=== PATIENT | female | born 1960 | race Caucasian/White ===

== ENCOUNTER → 2016-05-19 | Outpatient (CLI) | payer OTHER ==
--- NOTE | 2016-05-19 22:11 | MR ---
EXAMINATION TYPE: MR lumbar spine wo con DATE OF EXAM: 05/19/2016 10:03 PM COMPARISON: NONE HISTORY: pain with spasms and numbness since 1998 has gotten worse TECHNIQUE: Multiplanar, multisequence images of the lumbar spine were acquired. L1-L2: Normal disc appearance without desiccation. No herniation, protrusion or disc bulging. No ca nal stenosis is present. Foramina are patent bilaterally. L2-L3: Moderate degenerative disc disease and circumferential disc bulging with mild bilateral forami nal encroachment but no canal stenosis. Mild hypertrophic change of the facets. L3-L4: Moderate degenerative disc disease and circumferential disc bulging with mild bilateral forami nal encroachment but no canal stenosis. Mild hypertrophic change of the facets L4-L5: Broad-based central disc bulging. There is hypertrophy of the ligamentum flavum and moderate c hanges involving the facets. No Canal stenosis. Mild bilateral foraminal encroachment. L5-S1: Normal disc appearance without desiccation. No herniation, protrusion or disc bulging. No ca nal stenosis is present. Foramina are patent bilaterally. Facet arthropathy noted. Lumbar segments are intact. No paraspinal masses are identified. Conus medullaris has a normal appe arance. IMPRESSION: 1. Moderate degenerative disc disease L2-3, L3-4, and L4-5 with disc bulging as discussed above. No Canal stenosis. Mild bilateral foraminal encroachment at these levels.
== END | disposition home or self-care (01) ==
LOC: RADMRIMAIN 21:21
PROVIDERS: ATTEND Family Medicine
DX: M51.16 Intervertebral disc disorders with radiculopathy, lumbar region (principal)
CPT/HCPCS: 72148

== ENCOUNTER 2016-10-23 09:02 | Day surgery (SDC) | payer OTHER ==
[2016-10-21 16:52] VITALS: BMI 34.9
[~2016-10-23 09:02] MED LIST: LACTATED RINGERS 1,000 ML IV SCH; LIDOCAINE 1% 20 ML VIAL (10MG/ML) FOR IV START INTRADERMA PRN
[2016-10-23 09:16] VITALS: RESP 16; TEMP 96.8
[2016-10-23] MEDS ORDERED: ONDANSETRON 4 MG/2 ML VIAL IVP ONE (09:22)
[2016-10-23] MEDS ORDERED: PROPOFOL 10 MG/ML 20 ML VIAL IV ONE (09:31)
--- NOTE | 2016-10-23 09:34 | P.GSHP ---
History of Present Illness H&P Date: 10/23/16 Chief Complaint: GI bleed This a 56-year-old female referred from Dr. madrigal. Patient had complaints of GI bleed. She will undergo EGD and colonoscopy today. Past Medical History Past Medical History: Chest Pain / Angina, Deep Vein Thrombosis (DVT), Fibromyalgia, Hyperlipidemia, Hypertension, Pneumonia, Pulmonary Embolus (PE), Skin Disorder Additional Past Medical History / Comment(s): stated "had black stools for approx 4 days and had pos occult stool end of September or beginning of October 2016,now back to normal",urinary incontinence,steroid injection September 2016,sore rt great toe and between 1rst and 2nd toes left foot History of Any Multi-Drug Resistant Organisms: None Reported Past Surgical History: Cholecystectomy, Hysterectomy, Tubal Ligation Additional Past Surgical History / Comment(s): breast reduction, tendon repair lt hand,rt shoulder repair,madison carpel tunnel Past Anesthesia/Blood Transfusion Reactions: Motion Sickness, Postoperative Nausea & Vomiting (PONV) Additional Past Anesthesia/Blood Transfusion Reaction / Comment(s): no problems with prior blood transfusion Smoking Status: Never smoker - Past Family History Brother(s) Family Medical History: Cancer, Congestive Heart Failure (CHF) Additional Family Medical History / Comment(s): lymphoma,lung CA Medications and Allergies Home Medications Medication Instructions Recorded Confirmed Type Aspirin EC [Ecotrin Low Dose] 81 mg PO DAILY 09/24/13 10/23/16 History Atorvastatin Calcium [Lipitor] 40 mg PO DAILY 09/24/13 10/23/16 History Dicyclomine [Bentyl] 20 mg PO DAILY 09/24/13 10/23/16 History Gabapentin [Neurontin] 600 mg PO QID PRN 09/24/13 10/23/16 History Levothyroxine Sodium [Synthroid] 125 mcg PO QAM 09/24/13 10/23/16 History Loratadine 10 mg PO DAILY 09/24/13 10/23/16 History Nitroglycerin Sl Tabs [Nitrostat] 0.4 mg PO TID PRN 09/24/13 10/23/16 History Solifenacin Succinate [Vesicare] 10 mg PO DAILY 09/24/13 10/23/16 History Warfarin [Coumadin] 10 mg PO SUMOWEFRSA 09/24/13 10/23/16 History Warfarin [Coumadin] 12.5 mg PO TUTH 09/24/13 10/23/16 History buPROPion SR [Wellbutrin SR] 150 mg PO BID 09/24/13 10/23/16 History Baclofen [Lioresal] 20 mg PO QID PRN 09/01/14 10/23/16 History Hydrocodone/Acetaminophen [[place] 1 each PO TID PRN 09/01/14 10/23/16 History 10-325] Cetirizine HCl [Zyrtec] 10 mg PO DAILY PRN 10/21/16 10/23/16 History Metoprolol Succinate (ER) [Toprol 25 mg PO QAM 10/21/16 10/23/16 History Xl] Naproxen Sodium [Aleve] 440 mg PO BID PRN 10/21/16 10/23/16 History Allergies Allergy/AdvReac Type Severity Reaction Status Date / Time Iodinated Contrast Media - Allergy Rash/Hives, Verified 10/23/16 09:23 Oral and swelling,it tiffanie iodine Allergy Rash/Hives, Verified 10/23/16 09:23 swelling,it tiffanie latex Allergy Swelling,it Verified 10/23/16 09:23 tiffanie,hives Surgical - Exam Vital Signs Temp Pulse Resp BP Pulse Ox 96.8 F L 72 16 110/74 98 10/23/16 09:15 10/23/16 09:15 10/23/16 09:15 10/23/16 09:15 10/23/16 09:15 - General well developed, no distress - Eyes PERRL - ENT normal pinna - Neck no masses - Respiratory normal expansion - Cardiovascular Rhythm: regular - Abdomen Abdomen: soft, non tender Assessment and Plan Plan: GI bleed. We'll perform EGD and colonoscopy.
--- NOTE | 2016-10-23 09:55 | P.OP ---
Date of Procedure: 10/23/16 Preoperative Diagnosis: GI bleed Postoperative Diagnosis: Antral gastritis Duodenitis Normal colon Procedure(s) Performed: EGD Colonoscopy Implants: Anesthesia: MAC Surgeon: Pablo Rivera Pathology: other (Antrum,duodenum) Condition: stable Disposition: PACU Indications for Procedure: Operative Findings: Description of Procedure: PROCEDURE: The patient was placed on the endoscopy table in the lateral position. Digital rectal examination was performed which revealed no abnormalities. . Flexible colonoscope was then placed in the patient's anus and passed throughout the entire colon. The ileocecal valve was visualized. The cecum, ascending, transverse, descending and sigmoid colon were normal. The rectum was normal as well. There were no masses, polyps or diverticula noted in the entire colon. Next, the gastroscope placed oropharynx passed in the esophagus and stomach. Scope was placed through the pylorus. The first and second portion of duodenum appeared inflamed. A biopsies performed. The scope was then brought back and the antrum this appeared inflamed a biopsies was performed. The scope was unretroflexed and remainder of the stomach appeared normal. The GE junction was at 47 is. The distal esophagus appeared normal. The proximal esophagus appeared normal. Scope was withdrawn for patient.
[2016-10-23 10:18] VITALS: BP 112/58; PULSE 65
== END 2016-10-23 10:38 | disposition home or self-care (01) ==
LOC: ORWHC2ENDO 09:02
PROVIDERS: ATTEND Surgery
DX: K29.50 Unspecified chronic gastritis without bleeding (principal); K29.80 Duodenitis without bleeding; I25.119 Atherosclerotic heart disease of native coronary artery with unspecified angina pectoris; I10 Essential (primary) hypertension; E78.5 Hyperlipidemia, unspecified; M79.7 Fibromyalgia; Z86.718 Personal history of other venous thrombosis and embolism; Z79.01 Long term (current) use of anticoagulants; E07.9 Disorder of thyroid, unspecified; F32.9 Major depressive disorder, single episode, unspecified; Z79.82 Long term (current) use of aspirin; Z79.899 Other long term (current) drug therapy; Z91.041 Radiographic dye allergy status; Z91.040 Latex allergy status
CPT/HCPCS: 88305; 88342; 45378; 43239; J2405; J2704

== ENCOUNTER → 2016-10-29 | Outpatient (CLI) | payer OTHER ==
--- NOTE | 2016-10-30 09:14 | MM ---
Reason for exam: clinical finding. Last mammogram was performed 2 years and 1 month ago. History: Patient is postmenopausal. Family history of breast cancer in maternal aunt and breast cancer in maternal cousin at age 48. 2000. Took hormonal contraceptives for 15 years beginning at age 17. Physical Findings: Nurse did not find any significant physical abnormalities on exam. MG Diagnostic Mammo w CAD LISE Bilateral CC and MLO view(s) were taken. LM, spot compression CC, and spot compression MLO view(s) were taken of the right breast. Prior study comparison: September 21, 2014, bilateral MG screening mammo w CAD. July 20, 2012, bilateral digital screening mammo w/CAD. The breast tissue is almost entirely fat. Finding: There is a 7 mm irregular mass located 7 cm from the nipple in the 12 o'clock position of the right breast. More defined since September 21, 2014 and July 20, 2012. These results were verbally communicated with the patient and result sheet given to the patient on 10/29/16. ASSESSMENT: Probably benign, BI-RAD 3 RECOMMENDATION: Follow-up diagnostic mammogram of the right breast in 6 months.
--- NOTE | 2016-10-30 09:19 | USB ---
Reason for exam: clinical finding. History: Patient is postmenopausal. Family history of breast cancer in maternal aunt and breast cancer in maternal cousin at age 48. Reductions, 2000. Took hormonal contraceptives for 15 years beginning at age 17. US Breast BILAT Right breast ultrasound includes all four quadrants, the retroareolar region and axilla. Finding demonstrates no cystic or solid lesion seen. Left breast ultrasound includes all four quadrants, the retroareolar region and axilla. Finding demonstrates no cystic or solid lesion seen. These results were verbally communicated with the patient and result sheet given to the patient on 10/29/16. ASSESSMENT: Negative, BI-RAD 1 RECOMMENDATION: Follow-up diagnostic mammogram of the right breast in 6 months.
== END | disposition home or self-care (01) ==
LOC: RADMAMWWP 13:09
PROVIDERS: ATTEND Family Medicine
DX: N63 Unspecified lump in breast (principal)
CPT/HCPCS: 76641; G0204

== ENCOUNTER → 2017-01-22 | Outpatient (CLI) | payer OTHER ==
--- NOTE | 2017-01-25 12:04 | MR ---
EXAMINATION TYPE: MR shoulder RT wo con DATE OF EXAM: 01/22/2017 COMPARISON: NONE HISTORY: Rt shoulder impingement x 1 year, no trauma TECHNIQUE: Multiplanar, multisequence imaging of the right shoulder is performed without contrast. FINDINGS: Rotator Cuff: There is a partial through thickness tear of the infraspinatus tendon and conjoined por tion of the rotator cuff tendon near the insertion measuring a thickness of 2 cm. No retraction. Incr eased signal within the subscapularis tendon near the insertion suggesting tendinosis. Acromioclavicular Joint: There is hypertrophic change of the AC joint which results in impingement of the supraspinatus tendon. Glenohumeral Joint: There is a small joint effusion. There is narrowing of the joint space and a tiny spur along the inferior margin of the humeral head. Inferior glenohumeral ligament remains intact. Labrum: Abnormal signal seen within the anterior superior labrum extending posteriorly compatible wit h SLAP tear Biceps Tendon: There is increased signal surrounding the biceps tendon within the groove. There is no dislocation of the tendon. Within the intracapsular portion of the tendon there appears to be increa sed intrasubstance signal. Findings are compatible tendinopathy and partial intrasubstance tear. Bone marrow signal: No focal abnormal marrow signal is appreciated. IMPRESSION: 1. Partial through thickness tear infraspinatus tendon and conjoined portion of the rotator cuff tend on near the insertion measuring a thickness of 2 cm with no significant retraction. 2. Tendinosis subscapularis tendon. 3. bicipital tendinosis with partial intrasubstance tear involving the intracapsular portion of the t endon. 4. SLAP tear. 5. Arthropathy AC joint results in impingement.
== END | disposition home or self-care (01) ==
LOC: RADMRIMAIN 20:04
PROVIDERS: ATTEND Family Medicine
DX: M75.111 Incomplete rotator cuff tear or rupture of right shoulder, not specified as traumatic (principal); M75.81 Other shoulder lesions, right shoulder; S43.401A Unspecified sprain of right shoulder joint, initial encounter; M75.41 Impingement syndrome of right shoulder; M12.811 Other specific arthropathies, not elsewhere classified, right shoulder; M54.10 Radiculopathy, site unspecified

== ENCOUNTER 2017-05-10 01:01 | Emergency (ER) | payer OTHER ==
[2017-05-10 01:12] VITALS: TEMP 97
[2017-05-10] MEDS ORDERED: methylPREDNISolone SOD SUCCI 125 MG/2 ML VIAL IM STA (01:59)
[2017-05-10] MEDS ORDERED: ORPHENADRINE 30 MG/ML 2 ML VIAL IM STA (01:59)
[2017-05-10] MEDS ORDERED: KETOROLAC 60 MG/2 ML VIAL IM STA (01:59)
--- NOTE | 2017-05-10 02:08 | ED ---
General Adult HPI - General Chief complaint: Extremity Injury, Lower Stated complaint: Leg injury Time Seen by Provider: 05/10/17 01:45 Source: patient, family, RN notes reviewed Mode of arrival: ambulatory Limitations: physical limitation - History of Present Illness Initial comments: 57-year-old female presents to the emergency department with chief complaint of flareup of her left leg sciatica. She states she chronically has sciatica. She states she takes pain medication she takes anti-inflammatories and other medications for this. She states that she took a step today and all of a sudden she was shooting pain from the bottom of her left foot all day at the back of her leg into her low back. Patient states there was no actual fall trauma or injury. She states just his flared up her sciatica is causing her increased pain which makes it hard to ambulate. She denies any loss of bowel or bladder function any saddle anesthesia with this. She states that it wishes to the level pain that she thought that she should be seen for that she gave help with her discomfort. She states she has not been on steroids for her back for very long time. Patient denies any recent fever, chills, shortness of breath , chest pain, abdominal pain, nausea vomiting, numbness or tingling, dysuria or hematuria, constipation or diarrhea, headaches or visual changes, or any other current symptoms. - Related Data Home Medications Medication Instructions Recorded Confirmed Aspirin EC [Ecotrin Low Dose] 81 mg PO DAILY 09/24/13 10/23/16 Atorvastatin Calcium [Lipitor] 40 mg PO DAILY 09/24/13 10/23/16 Dicyclomine [Bentyl] 20 mg PO DAILY 09/24/13 10/23/16 Gabapentin [Neurontin] 600 mg PO QID PRN 09/24/13 10/23/16 Levothyroxine Sodium [Synthroid] 125 mcg PO QAM 09/24/13 10/23/16 Loratadine 10 mg PO DAILY 09/24/13 10/23/16 Nitroglycerin Sl Tabs [Nitrostat] 0.4 mg PO TID PRN 09/24/13 10/23/16 Solifenacin Succinate [Vesicare] 10 mg PO DAILY 09/24/13 10/23/16 Warfarin [Coumadin] 10 mg PO SUMOWEFRSA 09/24/13 10/23/16 Warfarin [Coumadin] 12.5 mg PO TUTH 09/24/13 10/23/16 buPROPion SR [Wellbutrin SR] 150 mg PO BID 09/24/13 10/23/16 Baclofen [Lioresal] 20 mg PO QID PRN 09/01/14 10/23/16 Hydrocodone/Acetaminophen [[place] 1 each PO TID PRN 09/01/14 10/23/16 10-325] Cetirizine HCl [Zyrtec] 10 mg PO DAILY PRN 10/21/16 10/23/16 Metoprolol Succinate (ER) [Toprol 25 mg PO QAM 10/21/16 10/23/16 Xl] Naproxen Sodium [Aleve] 440 mg PO BID PRN 10/21/16 10/23/16 Previous Rx's Medication Instructions Recorded Omeprazole 40 mg PO DAILY #60 capsule. 10/23/16 predniSONE 50 mg PO DAILY #5 tab 05/10/17 Allergies Allergy/AdvReac Type Severity Reaction Status Date / Time Iodinated Contrast- Oral and Allergy Rash/Hives, Verified 05/10/17 01:13 IV Dye swelling,it [Iodinated Contrast Media - tiffanie Oral and] iodine Allergy Rash/Hives, Verified 05/10/17 01:13 swelling,it tiffanie latex Allergy Swelling,it Verified 05/10/17 01:13 tiffanie,hives Review of Systems ROS Statement: Those systems with pertinent positive or pertinent negative responses have been documented in the HPI. ROS Other: All systems not noted in ROS Statement are negative. Past Medical History Past Medical History: Chest Pain / Angina, Deep Vein Thrombosis (DVT), Fibromyalgia, Hypertension, Pulmonary Embolus (PE) Additional Past Medical History / Comment(s): stated "had black stools for approx 4 days and had pos occult stool end of September or beginning of October 2016,now back to normal",urinary incontinence,steroid injection September 2016,sore rt great toe and between 1rst and 2nd toes left foot History of Any Multi-Drug Resistant Organisms: None Reported Past Surgical History: Cholecystectomy, Hysterectomy Additional Past Surgical History / Comment(s): breast reduction, cholecyst hyst tendon rx, Past Anesthesia/Blood Transfusion Reactions: Motion Sickness, Postoperative Nausea & Vomiting (PONV) Additional Past Anesthesia/Blood Transfusion Reaction / Comment(s): no problems with prior blood transfusion Past Psychological History: No Psychological Hx Reported Smoking Status: Never smoker Past Alcohol Use History: Occasional Past Drug Use History: None Reported - Past Family History Brother(s) Family Medical History: Cancer, Congestive Heart Failure (CHF) Additional Family Medical History / Comment(s): lymphoma,lung CA General Exam - General Exam Comments Initial Comments: General: The patient is awake and alert, in no distress, and does not appear acutely ill. Eye: Pupils are equal, round. Ears, nose, mouth and throat: There are moist mucous membranes. Neck: The neck is supple, there is no tenderness. Cardiovascular: There is a regular rate and rhythm. No murmur, rub or gallop is appreciated. Respiratory: Lungs are clear to auscultation, respirations are non-labored, breath sounds are equal. No wheezes, stridor, rales, or rhonchi. Back: There is no tenderness to palpation in the midline. There is no obvious deformity. No rashes noted. Complains of left posterior paraspinal region. Positive straight leg raise on the left Musculoskeletal: Normal ROM, no tenderness, There is no pedal edema. There is no calf tenderness or swelling. Sensation intact. Pulses equal bilaterally 2+. Neurological: CN II-XII intact, There are no obvious motor or sensory deficits. Coordination appears grossly intact. Speech is normal. Skin: Skin is warm and dry and no rashes or lesions are noted. Psychiatric: Cooperative, appropriate mood & affect, normal judgment. Limitations: physical limitation Course Vital Signs 05/10/17 01:01 Temperature 97.0 F L Pulse Rate 86 Respiratory 18 Rate Blood Pressure 119/67 O2 Sat by Pulse 97 Oximetry - Reevaluation(s) Reevaluation #1: 05/10/17 03:38 Patient has had some improvement of symptoms at this time. Medical Decision Making - Medical Decision Making 57-year-old female presents to the emergency department with a chief complaint of flareup of left leg sciatica. she received injection medications. We discussed that we will start her on steroids for home. We discussed continuing her home pain medication. We did discuss close follow-up with her doctor we did discuss return parameters all questions. The patient Disposition Clinical Impression: Sciatica, left side Disposition: HOME SELF-CARE Condition: Stable Instructions: Sciatica (ED) Additional Instructions: Please use medication as discussed. Please follow up with family doctor if symptoms have not improved over the next two days. Please return to the emergency room if your symptoms increase or worsen or for any other concerns. Prescriptions: predniSONE 50 mg PO DAILY #5 tab Referrals: Floresita Gonzalez DO [Primary Care Provider] - 1-2 days
[2017-05-10] MEDS ORDERED: HYDROmorphone 1 MG/ML 1 ML SYRINGE IM STA (03:04)
[2017-05-10 03:47] VITALS: BP 118/62; PULSE 67; RESP 17
== END 2017-05-10 03:49 | disposition home or self-care (01) ==
LOC: EC 01:01
DX: M54.32 Sciatica, left side (principal); M79.7 Fibromyalgia; I10 Essential (primary) hypertension; Z86.718 Personal history of other venous thrombosis and embolism; Z86.711 Personal history of pulmonary embolism; Z79.01 Long term (current) use of anticoagulants; Z79.82 Long term (current) use of aspirin; Z79.899 Other long term (current) drug therapy; Z91.041 Radiographic dye allergy status; Z91.048 Other nonmedicinal substance allergy status
CPT/HCPCS: 99283; 96372 ×4; J2360; J2930; J1885; J1170

== ENCOUNTER → 2017-06-15 | Outpatient (CLI) | payer OTHER ==
[2017-06-10 14:29] VITALS: BMI 28.7
[2017-06-15 13:25] VITALS: BP 114/81; PULSE 79; RESP 20
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
== END | disposition home or self-care (01) ==
LOC: PNWHC3 12:45
PROVIDERS: ATTEND Anesthesiology
DX: G89.29 Other chronic pain (principal); M51.16 Intervertebral disc disorders with radiculopathy, lumbar region; M53.88 Other specified dorsopathies, sacral and sacrococcygeal region; E07.9 Disorder of thyroid, unspecified; M79.7 Fibromyalgia; K21.9 Gastro-esophageal reflux disease without esophagitis; E78.5 Hyperlipidemia, unspecified; M19.90 Unspecified osteoarthritis, unspecified site; Z79.52 Long term (current) use of systemic steroids; Z86.79 Personal history of other diseases of the circulatory system; Z86.718 Personal history of other venous thrombosis and embolism; Z86.711 Personal history of pulmonary embolism; Z98.890 Other specified postprocedural states; Z90.49 Acquired absence of other specified parts of digestive tract; Z79.01 Long term (current) use of anticoagulants; Z79.82 Long term (current) use of aspirin; Z79.891 Long term (current) use of opiate analgesic; Z79.899 Other long term (current) drug therapy; Z91.041 Radiographic dye allergy status; Z91.040 Latex allergy status
CPT/HCPCS: 99211

== ENCOUNTER → 2017-06-21 | Outpatient (CLI) | payer OTHER ==
--- NOTE | 2017-06-22 07:41 | MM ---
Reason for exam: follow-up at short interval from prior study. Last mammogram was performed 8 months ago. History: Patient is postmenopausal. Family history of breast cancer in maternal aunt and breast cancer in maternal cousin at age 48. 2000. Took hormonal contraceptives for 15 years beginning at age 17. Physical Findings: Nurse did not find any significant physical abnormalities on exam. MG Diagnostic Mammo w CAD LISE Bilateral CC and MLO view(s) were taken. Prior study comparison: October 29, 2016, bilateral MG diagnostic mammo w CAD LISE. September 21, 2014, bilateral MG screening mammo w CAD. July 20, 2012, bilateral digital screening mammo w/CAD. Slight nodularity 9 o'clock right breast middle depth maybe more defined from 2014. 6 month follow up recommended. These results were verbally communicated with the patient and result sheet given to the patient on 06/21/17. ASSESSMENT: Probably benign, BI-RAD 3 RECOMMENDATION: Follow-up diagnostic mammogram of the right breast in 6 months.
== END | disposition home or self-care (01) ==
LOC: RADMAMWWP 14:18
PROVIDERS: ATTEND Family Medicine
DX: R92.8 Other abnormal and inconclusive findings on diagnostic imaging of breast (principal)
CPT/HCPCS: 77066

== ENCOUNTER 2017-07-29 06:09 | Day surgery (SDC) | payer OTHER ==
[2017-07-12 16:14] VITALS: BMI 28.7
[2017-07-29] MEDS ORDERED: LACTATED RINGERS 1,000 ML IV SCH (06:23)
[2017-07-29 06:26] VITALS: RESP 16; TEMP 98
--- NOTE | 2017-07-29 07:29 | P.PCN ---
Date of Procedure: 07/29/17 Procedure(s) Performed: Preoperative diagnoses= 1-right sacroiliitis. 2-lumbar radiculopathy. 3- lumbar degenerative disc disease Postoperative diagnoses= same as preoperative diagnosis. Procedure= Right sacroiliac joint steroid injection under fluoroscopic guidance. Anesthesia= local infiltration with lidocaine 1% 2 ml only ,no IV sedation Estimated blood loss=minimal. Procedure indication= the patient had a history of severe chronic low back pain , diagnosed with sacroiliitis, unresponsive to conservative treatment. Procedure description= the patient was seen and identified in the preoperative holding area, risks and benefits and alternative of the procedure and possible complications discussed with the patient, and he agreed with the preceding, patient signed the consent,, and vital signs were monitored and were stable throughout the procedure, patient was placed in the prone position or table and the lumbosacral area was prepped and draped with a sterile fashion, vital signs were closely monitored during the procedure, the fluoroscopy camera was placed in the contralateral oblique view on the right sacroiliac joint and the lower part of the joint was identified, local infiltration of the skin and subcutaneous tissue with lidocaine 1% 2 mL then a 25-gauge Quincke-type spinal needle advanced slowly under fluoroscopy and placed in the posterior and inferior border of the right sacroiliac joint, placement confirmed with AP and lateral view, and after appropriate needle placement confirmed and after negative aspiration for heme and CSF and there was no paresthesia during the injection, 3 ml of Marcaine 0.5% and 40 mg of Kenalog injected after negative aspiration, the needle removed, Patient tolerated the procedure well without any complication, The patient returned to supine position after the back was cleaned and a Band- Aid applied, the patient transported to recovery room in stable condition and he was monitored for 30 minutes before he was discharged home and then patient was reexamined before going home and patient was discharged in stable condition and patient will follow up with the pain clinic in a few weeks
[2017-07-29 07:48] VITALS: BP 113/73; PULSE 65
--- NOTE | 2017-07-29 08:16 | FL ---
EXAMINATION TYPE: FL guided pain mgmt statistic DATE OF EXAM: 07/29/2017 COMPARISON: NONE HISTORY: Sacroiliac joint injection TECHNIQUE: Fluoroscopy. FINDINGS/IMPRESSION: Fluoroscopic guidance was provided during procedure performed by Dr. Escalante. A total of 3 seconds of fluoroscopic time was utilized during the procedure and 1 spot images was ac quired demonstrating localization of the sacroiliac joint.
== END 2017-07-29 07:57 | disposition home or self-care (01) ==
LOC: ORPAIN 06:09
PROVIDERS: ATTEND Specialist
DX: G89.29 Other chronic pain (principal); M46.1 Sacroiliitis, not elsewhere classified; M51.16 Intervertebral disc disorders with radiculopathy, lumbar region; I25.119 Atherosclerotic heart disease of native coronary artery with unspecified angina pectoris; Z86.718 Personal history of other venous thrombosis and embolism; Z86.711 Personal history of pulmonary embolism; Z91.040 Latex allergy status; Z91.048 Other nonmedicinal substance allergy status; Z79.01 Long term (current) use of anticoagulants
CPT/HCPCS: J2250; J1100; J3301; Q9965; G0260; 27096

== ENCOUNTER 2017-08-26 06:16 | Day surgery (SDC) | payer OTHER ==
[2017-08-23 14:48] VITALS: BMI 28.7
[~2017-08-26 06:16] MED LIST changes: -LIDOCAINE 1% 20 ML VIAL (10MG/ML) FOR IV START INTRADERMA PRN
[2017-08-26] MEDS ORDERED: LIDOCAINE 1% 20 ML VIAL (10MG/ML) FOR IV START INTRADERMA ONE (06:20)
[2017-08-26 06:32] VITALS: PULSE 70; RESP 16; TEMP 97.5
--- NOTE | 2017-08-26 07:26 | P.PCN ---
Date of Procedure: 08/26/17 Procedure(s) Performed: Preoperative diagnoses= 1-right sacroiliitis. 2-lumbar degenerative disc disease Postoperative diagnoses= same as preoperative diagnosis. Procedure= Right sacroiliac joint steroid injection under fluoroscopic guidance. Anesthesia= local infiltration with lidocaine 1% 2 ml. ( NO IV SEDATIONS ) Estimated blood loss=minimal. Procedure indication= the patient had a history of severe chronic low back pain , diagnosed with sacroiliitis and lumbar sacral facet arthropathy unresponsive to conservative treatment. Procedure description= the patient was seen and identified in the preoperative holding area, risks and benefits and alternative of the procedure and possible complications discussed with the patient, and he agreed with the preceding, patient signed consent,, and vital signs were monitored and were stable throughout the procedure, patient was placed in the prone position or table and the lumbosacral area was prepped and draped with a sterile fashion, vital signs were closely monitored during the procedure, the fluoroscopy camera was placed in the contralateral oblique view on the right sacroiliac joint and the lower part of the joint was identified, local infiltration of the skin and subcutaneous tissue with lidocaine 1% 2 mL then a 22-gauge Quincke-type spinal needle advanced slowly under fluoroscopy and placed in the posterior and inferior border of the right sacroiliac joint, placement confirmed with AP and lateral view, and after appropriate needle placement confirmed and after negative aspiration for heme and CSF and there was no paresthesia during the injection, 3 ml of Marcaine 0.5% and 40 mg of Kenalog injected after negative aspiration, the needle removed, Patient tolerated the procedure well without any complication, The patient returned to supine position after the back was cleaned and a Band- Aid applied, the patient transported to recovery room in stable condition and he was monitored for 30 minutes before he was discharged home and then patient was reexamined before going home and patient was discharged in stable condition and patient will follow up with the pain clinic in a few weeks
[2017-08-26 07:35] VITALS: BP 113/77
--- NOTE | 2017-08-26 08:34 | FL ---
Fluoroscopy INDICATION: Pain FINDINGS: Fluoroscopy time: 2 seconds. Images obtained: 1. IMPRESSIONS: 1. Documentation of fluoroscopy.
== END 2017-08-26 07:53 | disposition home or self-care (01) ==
LOC: ORPAIN 06:16
PROVIDERS: ATTEND Specialist
DX: G89.29 Other chronic pain (principal); M46.1 Sacroiliitis, not elsewhere classified; I25.10 Atherosclerotic heart disease of native coronary artery without angina pectoris; E78.5 Hyperlipidemia, unspecified; M51.36 Other intervertebral disc degeneration, lumbar region; Z91.041 Radiographic dye allergy status; Z91.040 Latex allergy status; Z86.718 Personal history of other venous thrombosis and embolism; Z86.711 Personal history of pulmonary embolism
CPT/HCPCS: J3301; G0260; 27096

== ENCOUNTER → 2017-09-13 | Outpatient (CLI) | payer OTHER ==
[2017-09-13 13:21] VITALS: BP 115/84; PULSE 96; RESP 15
--- NOTE | 2017-09-13 13:34 | P.PN ---
Progress Note - Text Progress Note Date: 09/13/17 Patient returns for followup for chronic R > L back and hip pain. Patient recently underwent R SIJ injection x 2, which provided > 60% relief for two weeks' interval apiece. Patient continues on tramadol medications for pain with some relief. Patient denies adverse drug effects from medications. Today , pt denies new-onset weakness, bowel/bladder incontinence, or any other signs or symptoms of cauda equina syndrome. There are no signs of acute intoxication, and no indications of medication diversion or overuse. In addition to above, 13-point review of systems is also negative for shortness of breath, changes in vision, changes in hearing, new onset weakness, abdominal pain, diarrhea, extreme fatigue, malaise, fever, skin changes, homicidal or suicidal ideation, or bowel or bladder incontinence. Patient did endorse some chest pain in office today, but it improved substantially after she sat for 5- 10 minutes. Vital Signs: Reviewed in EMR Gen: WDWN, AAOx3, NAD HEENT: NCAT, EOMI, hearing grossly normal Pulm: resp unlabored Abd: soft, NT, ND Neck: supple, trachea midline ROM in flexion lumbar spine: reduced ROM in extension lumbar spine: reduced Lumbar paravertebral tenderness: + Facet loading: + bilateral SI joint tenderness: + bilateral, R > L Sher's test: R >> L Straight leg raise: neg Lower extremity: reduced sensation to pinprick RLE below the knee Imaging: Reviewed in EMR Assessment: 1. lumbar spondylosis 2. SIJ dysfunction 3. chronic pain syndrome Plan: 1. Explanation: Opioid and psychological risk scores were reviewed. Diagnoses , prognoses, and multiple treatment options including but not limited to physical therapy, interventional therapies, adjuvant medical therapies, narcotic medication therapies, and surgery were discussed with the patient and all questions were answered to the patient's satisfaction. 2. Opioid agreement: Patient has previously signed narcotic agreement, and was orally counseled to not overuse, abuse, divert, or cell medications, and to take them as prescribed by only 1 healthcare provider. The patient was also counseled to store opioid medications in a safe and preferably locked location. Patient was also counseled against driving or operating heavy equipment while using narcotic medications and also to not use alcohol or any illicit or recreational drugs. The patient verbalized understanding that lack of compliance with any of the above and likely result in failure to renew narcotic prescriptions, possible discharge from the clinic, and possible legal ramifications thereafter if indicated. 3. Counseling: The patient was counseled extensively on SMOKING CESSATION, BODY MASS INDEX, EXERCISE. Specifically, the patient was instructed regarding the importance of smoking cessation, weight control, and exercise in the context of both chronic pain and overall health. 4. Procedures: R SI RFA 5. Consultations: None 6. Investigations: UDS not done, MAPS queried and appropriate 7. Medications: none prescribed 8. Morphine equivalents per day prescribed: zero 9. Disposition: f/u for procedure as scheduled PQRS measures: 1-Patient's medications are documented in the chart. 2-Tobacco use is positive/negative, counseling NOT given 3-Patient has not had a pneumococcal vaccine. 4-Advanced care planning discussed, patient unable to give. 5-Opioid contract signed with the patient. 6-Pain positive, follow-up visit or procedure scheduled 7-Patient's blood pressure measured and documented, and patient will follow up with the primary care due to hypertension. 8-Patient's weight was measured, and body mass index ABOVE/BELOW the normal limits, and counseling was done. Patient instructed to follow up with PCP. 9-Patient WAS/WAS NOT identified as an unhealthy alcohol user.
== END | disposition home or self-care (01) ==
LOC: PNWHC3 13:00
PROVIDERS: ATTEND Anesthesiology
DX: G89.4 Chronic pain syndrome (principal); M47.816 Spondylosis without myelopathy or radiculopathy, lumbar region; M53.3 Sacrococcygeal disorders, not elsewhere classified; Z79.891 Long term (current) use of opiate analgesic
CPT/HCPCS: 99211

== ENCOUNTER → 2018-02-01 | Outpatient (CLI) | payer OTHER ==
[2018-02-01 13:35] VITALS: BP 129/83; PULSE 75; RESP 18
--- NOTE | 2018-02-02 08:32 | P.PAINPG ---
Subjective Progress Note Date: 02/01/18 This is a follow-up visit for this patient with a history of severe low back pain, patient had right side sacroiliac joint steroid injection in the past, she gets more than 60% improvement in her low back pain, bilateral last few months he started complaining of severe low back pain with radiation to the lower extremity bilaterally, associated with numbness and tingling sensation, she is currently on Neurontin 600 mg every 6 hours and baclofen every 6 hours, prescription given by her primary care, she denies any fever or night sweats she denies any change in the bowel movement or urination she denies any motor or sensory deficit,, the intensity of the pain 6- 8 over 10 and increases with any activity Objective - Vital Signs Vital signs: Vital Signs Temp Pulse 75 02/01/18 13:25 Resp 18 02/01/18 13:25 BP 129/83 02/01/18 13:25 Pulse Ox 95 02/01/18 13:25 Intake & Output 02/01/18 02/02/18 02/02/18 18:59 06:59 18:59 Weight 71.668 kg - Exam Physical Examinations : 1-Constitutiona : Cooperative , not in acute distress . 2-HEENT : nech ; supple , no Lymphadenopathy , normal thyroid size . eyes : no ptosis , no icterus , no photophobia . ENT : normal of hearing , normal oropharynx , no Thrush . 3- Respiratory : Chest clear to auscultations Bilaterally , no wheezing , no Rhonchi . 4- Cardiovascular : regular rate and rhythem , S1 , S2 , no S3 , no S4. 5- Gastrointestinal : abdomen soft no tenderness , bowel sounds , no organomegally . 6- Genitourinary : Defferred . 7- neurologic : Cranial nerve II to XII intact , no focal neurological deffecit . 8-psychatric : alert , oriented X 3 , appropriate affect , intact judgment and insight . 9-Lymphatic : no Lymphadenopathy . 10- musculoskeltal : Lumber spine moter stegnth lower extremities ,thigh and legs 5/5 Right side , 5/5 Left side deep tendon reflexes : normal Knee Jerk , normal ankle Jerk positive lumber facet Loading Test Range of motion of the lumbar spine Flexion 30 degrees, extension 10 degrees strait leg raising test , positive at 30 degree Fabere test positive RT and positive LT . Sever tenderness over the Sacroiliac joint on the R and L sides Assessment and Plan Plan: Assessment and plan= chronic severe low back pain secondary to bilateral sacroiliitis , and currently also patient having symptoms of lumbar radiculitis. A few months ago with the right-sided sacroiliac joint steroid injection which helped her low back pain significantly , currently patient complaining of some radicular symptoms, at L4 5, L5-S1 this dermatomal distribution, I will order MRI of the lumbar spine to identify the etiology, and also patient could benefit from bilateral sacroiliac joint steroid injection , patient should hold the Coumadin for 5 days before the procedure Time with Patient: Less than 30 PQRS Measure Charge Sheet Measure #130: Documentation of Current Meds in Medical Chart: Patient's medications documented in chart Measure #226: Tobacco Use: Screen & Cessation Intervention: Pt not a tobacco user Measure #111: Pneumonia Vaccination: Pneumococcal vaccine NOT administered or previously given Measure #47: Advance Care Plan: Advance care planning discussed & documented, pt chose/unable to give Measure #412: Opioid Treatment Agreement: No documentation of signed opioid treatment agreement Measure #408: Opioid Therapy Follow-up Evaluation: Patient had NO f/u eval minimum every 3 months during opioid therapy Measure #317: Preventitive Care & Scrn High Bld Press & F/U: Normal blood pressure, f/u not required Measure #128: Body Mass Index (BMI) Screening & Follow-up: BMI documented ABOVE normal parameters - f/u documented Measure #131: Pain Assessment & Follow-up: Pain positive & plan documented, Follow-up scheduled Measure #431: Unhealthy Alcohol Use Preventative Care & Scrn: Patient not identified as an unhealthy alcohol user PQRS Narrative: Smoking Status Never smoker Do You Want the Pneumonia No Vaccine AT THIS TIME? Blood Pressure 129/83 Pain Intensity [Lower Back] 8 Hx Alcohol Use (MH) Yes Home Medications: Ambulatory Orders Aspirin EC [Ecotrin Low Dose] 81 mg PO DAILY 09/24/13 Atorvastatin Calcium [Lipitor] 40 mg PO DAILY 09/24/13 Dicyclomine [Bentyl] 20 mg PO DAILY 09/24/13 Gabapentin [Neurontin] 800 mg PO QID PRN 09/24/13 Levothyroxine Sodium [Synthroid] 125 mcg PO QAM 09/24/13 Loratadine 10 mg PO DAILY 09/24/13 Nitroglycerin Sl Tabs [Nitrostat] 0.4 mg PO DIRECTED PRN 09/24/13 Solifenacin Succinate [Vesicare] 10 mg PO DAILY 09/24/13 Warfarin [Coumadin] 10 mg PO SUMOWEFRSA 09/24/13 Warfarin [Coumadin] 12.5 mg PO TUTH 09/24/13 buPROPion SR [Wellbutrin SR] 150 mg PO BID 09/24/13 Baclofen [Lioresal] 20 mg PO QID PRN 09/01/14 Omeprazole 40 mg PO DAILY #60 capsule. 10/23/16 Calcium/Magnesium/Zinc [Djzgpew-Zvecfewaz-Wnza Tablet] 1 each PO DAILY 07/27/17 Cyanocobalamin (Vitamin B-12) [Vitamin B-12] 1,000 mcg PO DAILY 07/27/17 Ergocalciferol [Vitamin D2] 50,000 unit PO FR 07/27/17 Controlled Substance Measures - Controlled Substance Measures Is patient prescribed a controlled substance at discharge?: No When asked, does pt state using other controlled substances?: No If prescribed controlled substance>3 days was MAPS reviewed?: No If Rx opioid, was Start Talking consent form obtained?: No If opioid is for acute pain is fill amount 7 days or less?: No Was information provided regarding opioid addiction?: No
== END | disposition home or self-care (01) ==
LOC: PNWHC3 12:03
PROVIDERS: ATTEND Specialist
DX: G89.29 Other chronic pain (principal); M54.5 Low back pain; M54.16 Radiculopathy, lumbar region; M46.1 Sacroiliitis, not elsewhere classified; Z79.01 Long term (current) use of anticoagulants; Z79.82 Long term (current) use of aspirin; Z79.899 Other long term (current) drug therapy
CPT/HCPCS: 99211

== ENCOUNTER 2018-02-10 07:44 | Day surgery (SDC) | payer OTHER ==
[2018-02-10 08:14] VITALS: TEMP 97.8
--- NOTE | 2018-02-10 08:59 | P.PCN ---
Date of Procedure: 02/10/18 Surgeon: Viktor Matthews Pathology: none sent Condition: stable Disposition: PACU Description of Procedure: Preoperative diagnoses= bilateral sacroiliac joint dysfunction and sacroiliitis , history of DVT and PE and factor V Leiden disease and treatment with Coumadin Postoperative diagnoses= same as preoperative diagnosis. Procedure= bilateral sacroiliac joint steroid injection under fluoroscopic guidance. Anesthesia= conscious sedation with Versed mg and fentanyl micrograms and local infiltration with lidocaine 1% 4 ml Estimated blood loss=minimal. Procedure indication= the patient had a history of severe chronic low back pain , diagnosed with sacroiliitis and lumbar sacral facet arthropathy unresponsive to conservative treatment. Her INR today was 1.0. The patient will resume her Coumadin today. Procedure description= the patient was seen and identified in the preoperative holding area, risks and benefits and alternative of the procedure and possible complications discussed with the patient, patient signed the consent. an IV was started, and vital signs were monitored and were stable throughout the procedure , patient was placed in the prone position or table and the lumbosacral area was prepped and draped with a sterile fashion, vital signs were closely monitored during the procedure.The sacroiliac joint was identified on the AP view of fluoroscopy then the C-arm was tilted to the right oblique position to superimpose the anterior and posterior joint lines on each other and to have a unified joint line with the target point at the inferior one third of this line. I used 22-gauge 3-1/2 inch Quincke spinal needle for this procedure and after getting into the sacroiliac joint I injected 20 mg of Kenalog +2.5 MLS of Ropivacaine 0.5%. The left sacroiliac joint injection was done in the same manner. Patient tolerated the procedure well without any complication. The total dose of Kenalog given for this procedure was 40 mg. The patient returned to supine position after the back was cleaned and a Band- Aid applied, the patient transported to recovery room in stable condition and he was monitored for 30 minutes before he was discharged home and then patient was reexamined before going home and patient was discharged in stable condition and patient will follow up with the pain clinic in a few weeks
[2018-02-10 09:23] VITALS: RESP 18
[2018-02-10 09:40] VITALS: BP 119/74; PULSE 59
--- NOTE | 2018-02-10 10:26 | FL ---
Fluoroscopy HISTORY: Pain 8 seconds fluoroscopy time supplied to the referring clinician. 1 intraoperative C-arm images docume nt the procedure. See dictated report from anesthesia.
== END 2018-02-10 09:52 | disposition home or self-care (01) ==
LOC: ORPAIN 07:44
PROVIDERS: ATTEND Anesthesiology
DX: M46.1 Sacroiliitis, not elsewhere classified (principal); M47.816 Spondylosis without myelopathy or radiculopathy, lumbar region; D68.51 Activated protein C resistance; G89.29 Other chronic pain; Z86.718 Personal history of other venous thrombosis and embolism; Z86.711 Personal history of pulmonary embolism; Z88.2 Allergy status to sulfonamides; Z91.040 Latex allergy status
CPT/HCPCS: J3301; G0260

== ENCOUNTER → 2018-02-17 | Outpatient (CLI) | payer OTHER ==
--- NOTE | 2018-02-17 10:03 | MR ---
EXAMINATION TYPE: MR lumbar spine wo con DATE OF EXAM: 02/17/2018 COMPARISON: 05/19/2016 HISTORY: Lower Ext Radicular Pain/Hx Deg Disc Disease CONTRAST: 0 mL intravenous Gadavist. TECHNIQUE: Multiplanar, multisequence images of the lumbar spine were acquired. FINDINGS: Cord terminates at the lower end of L2. L5-S1: No significant disc bulge or disc herniation. No spinal canal stenosis. No foraminal stenosi s. . L4-L5: There is some increased signal within the posterior L4-5 disc space compatible with small isadora lar tear. Mild disc bulge has anterior thecal sac flattening. No AP spinal canal stenosis present. Fa cet hypertrophy and ligamentum flavum laxity is present with some left posterior lateral thecal sac c ompression. Neural foramen are patent. There is some mild left foraminal narrowing from disc bulging into the foramen without nerve root contact. L3-L4: No significant disc bulge or disc herniation. No spinal canal stenosis. No foraminal stenosi s. Facet hypertrophy and mild ligamentum flavum laxity is posterior lateral thecal sac compression.. L2-L3: Minimal disc bulge has anterior thecal sac contact. No significant spinal canal stenosis is pr esent. Disc desiccation is present. L1-L2: No significant disc bulge or disc herniation. No spinal canal stenosis. No foraminal stenosi s. . T12-L1: No significant disc bulge or disc herniation. No spinal canal stenosis. No foraminal stenos is. . Comparison: No significant interval changes from the 2017 comparison study. IMPRESSION: 1. Suspected small annular tear L4-L5. No significant disc bulge or spinal canal stenosis present. 2. Mild posterior lateral thecal sac compression from facet hypertrophy and ligamentum flavum laxity L2-3 and L4-5. 3. Mild left foraminal narrowing without nerve root contact from disc bulging at L4-5 on the left cor relate with radicular symptoms.
== END | disposition home or self-care (01) ==
LOC: RADMRIMAIN 06:57
PROVIDERS: ATTEND Family Medicine
DX: M99.73 Connective tissue and disc stenosis of intervertebral foramina of lumbar region (principal); M51.26 Other intervertebral disc displacement, lumbar region; G95.29 Other cord compression; M47.816 Spondylosis without myelopathy or radiculopathy, lumbar region
CPT/HCPCS: 72148

== ENCOUNTER → 2018-03-29 | Day surgery (SDC) | payer OTHER ==
[2018-03-25 11:43] VITALS: BMI 29.6
[~2018-03-29] MED LIST changes: -LACTATED RINGERS 1,000 ML IV SCH; +SODIUM CHLORIDE 0.9% 500 ML 500 ML IV ONE
[2018-03-29 07:20] VITALS: TEMP 97.4
--- NOTE | 2018-03-29 08:05 | P.PCN ---
Date of Procedure: 03/29/18 Surgeon: Tay Rolle Description of Procedure: Preoperative diagnoses: Bilateral sacroilitis Postoperative diagnoses: Same Procedure: Bilateral sacroiliac joint steroid injection under fluoroscopic guidance. Surgeon: Tay Rolle MD Anesthesia: Local anesthetic only EBL: None Procedure indication: The patient had a history of severe chronic low back pain , diagnosed with sacroiliitis and lumbar sacral facet arthropathy unresponsive to conservative treatment. Procedure description: The patient was seen and identified in the preoperative holding area, risks and benefits and alternative of the procedure and possible complications discussed with the patient, and he agreed with the preceding, patient signed the consent, an IV was started, and vital signs were monitored and were stable throughout the procedure, patient was placed in the prone position or table and the lumbosacral area was prepped and draped with a sterile fashion, vital signs were closely monitored during the procedure, the fluoroscopy camera was placed in the contralateral oblique view on the right sacroiliac joint and the lower part of the joint was identified a 2 mL then a 25 -gauge Quincke-type spinal needle advanced slowly under fluoroscopy and placed in the posterior and inferior border of the right sacroiliac joint, placement confirmed with AP and lateral view, and after appropriate needle placement confirmed and after negative aspiration for heme and CSF and there was , 3 ml of Marcaine 0.5% and 20 mg of Kenalog injected after negative aspiration, no paresthesia during the injection, no resistance to injection, and the needle was removed. The entire same procedure was repeated for the left sacroiliac joint Patient tolerated the procedure well without any complication. The patient returned to supine position after the back was cleaned and a Band- Aid applied, the patient transported to recovery room in stable condition and he was monitored for 30 minutes before he was discharged home and then patient was reexamined before going home and patient was discharged in stable condition and patient will follow up with the pain clinic in a few weeks
[2018-03-29 08:21] VITALS: RESP 18
--- NOTE | 2018-03-29 08:32 | FL ---
EXAMINATION TYPE: FL guided pain mgmt statistic DATE OF EXAM: 03/29/2018 CLINICAL HISTORY: Bilateral sacroiliac joint pain. TECHNIQUE: Fluoroscopy. COMPARISON: None. FINDINGS: Fluoroscopic guidance was provided during pain relief procedure performed by Dr. Rolle . A total of 1 seconds of fluoroscopic time was utilized during the procedure and two spot images are acquired. Images acquired shows needle localization at level of bilateral sacroiliac joints. IMPRESSION: As Above.
[2018-03-29 09:00] VITALS: BP 140/78; PULSE 61
== END | disposition home or self-care (01) ==
LOC: ORPAIN 07:01
PROVIDERS: ATTEND Pain Medicine Pain Medicine
DX: G89.29 Other chronic pain (principal); M46.1 Sacroiliitis, not elsewhere classified; M47.817 Spondylosis without myelopathy or radiculopathy, lumbosacral region; I25.10 Atherosclerotic heart disease of native coronary artery without angina pectoris; Z91.040 Latex allergy status; Z91.048 Other nonmedicinal substance allergy status
CPT/HCPCS: J3301; G0260

== ENCOUNTER → 2018-04-13 | Outpatient (CLI) | payer OTHER ==
--- NOTE | 2018-04-13 14:31 | P.PAINPG ---
Subjective Progress Note Date: 04/13/18 Principal diagnosis: bilateral sacroiliitis this a very pleasant 57-year-old woman with a history of bilateral sacroiliac pain. She is undergone previous sacroiliac joint injections recently. These all been very helpful for her. Unfortunately, she has been falling shortly after her injections and this tends to undo any benefit she has from the injections. She is also undergone bilateral radio frequency ablation of her sacroiliac joints and reports this was extremely helpful in lowering her low back pain. She states that most of her problem and falling is coming from her right knee. She's had previous surgery there. She has intractable pain there and believes that this causes her instability. Objective - Vital Signs Vital signs: Intake & Output 04/12/18 04/13/18 04/13/18 18:59 06:59 18:59 Weight 73.482 kg - Exam General: The patient is alert and oriented. Patient is not sedated Patient answers all question appropriately. Cardiac: Heart is regular in rate and rhythm Respiratory: Clear to auscultation. No audible wheezes. Abdomen: Soft nontender nondistended. Musculoskeletal: Strength is normal bilaterally. Sensation is normal bilaterally. Straight leg raise is negative bilaterally. Very tender to palpation over her sacroiliac joints bilaterally. Neurological: Reflexes are preserved and symmetric bilaterally. Assessment and Plan (1) Bilateral sacroiliitis Current Visit: Yes Status: Acute Code(s): M46.1 - SACROILIITIS, NOT ELSEWHERE CLASSIFIED SNOMED Code(s): 14882570 Plan: Plan of Care 1. Medications:patient will continue to manage her pain with conservative medications. 2. Interventions:we will schedule the patient for sacroiliac joint radio frequency ablation. This will be done one side at a time. She will need to discontinue her Coumadin under the guidance of her prescribing physician in order to have this procedure performed. 3. Referrals:I refer the patient back to her primary care physician for discussion regarding a referral to physical therapy for her right knee as well as referred her back to her certified legal secretary specialist to evaluate her for a brace to help with stability in her knee. I also believe the balance training might be helpful for her. 4. Testing:none 5. Follow-up: sacroiliac joint radiofrequency ablation. PQRS Measure Charge Sheet Measure #130: Documentation of Current Meds in Medical Chart: Patient's medications documented in chart Measure #226: Tobacco Use: Screen & Cessation Intervention: Pt not a tobacco user Measure #111: Pneumonia Vaccination: Pneumococcal vaccine NOT administered or previously given Measure #47: Advance Care Plan: Advance care planning discussed & documented, pt chose/unable to give Measure #412: Opioid Treatment Agreement: No documentation of signed opioid treatment agreement Measure #408: Opioid Therapy Follow-up Evaluation: Patient had NO f/u eval minimum every 3 months during opioid therapy Measure #317: Preventitive Care & Scrn High Bld Press & F/U: Pre-hypertensive or hypertensive BP documented, pt will f/u with PCP Measure #128: Body Mass Index (BMI) Screening & Follow-up: BMI documented ABOVE normal parameters - f/u documented Measure #131: Pain Assessment & Follow-up: Pain positive & plan documented Measure #431: Unhealthy Alcohol Use Preventative Care & Scrn: Patient not identified as an unhealthy alcohol user PQRS Narrative: Smoking Status Never smoker Hx Alcohol Use (MH) Yes Home Medications: Ambulatory Orders Aspirin EC [Ecotrin Low Dose] 81 mg PO DAILY 09/24/13 Atorvastatin Calcium [Lipitor] 40 mg PO DAILY 09/24/13 Dicyclomine [Bentyl] 20 mg PO DAILY 09/24/13 Gabapentin [Neurontin] 800 mg PO QID PRN 09/24/13 Levothyroxine Sodium [Synthroid] 125 mcg PO QAM 09/24/13 Loratadine 10 mg PO DAILY 09/24/13 Nitroglycerin Sl Tabs [Nitrostat] 0.4 mg PO DIRECTED PRN 09/24/13 Solifenacin Succinate [Vesicare] 10 mg PO DAILY 09/24/13 Warfarin [Coumadin] 10 mg PO SUMOWEFRSA 09/24/13 Warfarin [Coumadin] 12.5 mg PO TUTH 09/24/13 buPROPion SR [Wellbutrin SR] 150 mg PO BID 09/24/13 Baclofen [Lioresal] 20 mg PO QID PRN 09/01/14 Omeprazole 40 mg PO DAILY #60 capsule. 10/23/16 Calcium/Magnesium/Zinc [Ogjuiid-Porjczdrt-Creh Tablet] 1 each PO DAILY 07/27/17 Cyanocobalamin (Vitamin B-12) [Vitamin B-12] 1,000 mcg PO DAILY 07/27/17 Ergocalciferol [Vitamin D2] 50,000 unit PO FR 07/27/17 DULoxetine HCL [Cymbalta] 1 tab PO DAILY 02/10/18 Controlled Substance Measures - Controlled Substance Measures Is patient prescribed a controlled substance at discharge?: No
== END ==
LOC: PNWHC3 13:55
PROVIDERS: ATTEND Pain Medicine Pain Medicine
DX: M46.1 Sacroiliitis, not elsewhere classified (principal); Z79.82 Long term (current) use of aspirin; Z79.899 Other long term (current) drug therapy; Z79.01 Long term (current) use of anticoagulants
CPT/HCPCS: 99211

== ENCOUNTER 2018-04-28 08:17 | Day surgery (SDC) | payer OTHER ==
[2018-04-26 11:42] VITALS: BMI 29.6
[~2018-04-28 08:17] MED LIST changes: -SODIUM CHLORIDE 0.9% 500 ML 500 ML IV ONE; +SODIUM CHLORIDE 0.9% 500 ML 500 ML IV SCH
[2018-04-28 09:03] VITALS: RESP 16; TEMP 97.8
[2018-04-28] MEDS ORDERED: LACTATED RINGERS 1,000 ML IV ONE (09:10)
[2018-04-28] MEDS ORDERED: LIDOCAINE 1% 20 ML VIAL (10MG/ML) FOR IV START INTRADERMA ONE (09:11)
[2018-04-28] MEDS ORDERED: ONDANSETRON 4 MG/2 ML VIAL IVP ONE (09:18)
[2018-04-28] MEDS ORDERED: IV FLUID CONTINUATION 600 ML IV ONE (10:10)
--- NOTE | 2018-04-28 10:13 | P.PCN ---
Date of Procedure: 04/28/18 Procedure(s) Performed: PREOPERATIVE DIAGNOSIS: 1-Lumbosacral spondylosis with facet arthropathy without myelopathy. 2-Bilateral sacroiliit. 3-lumbar herniated disc disease. post operative Diagnosis: . Same as preop Diagnoses PROCEDURES: 1- Left radiofrequency thermocoagulation/ablation of the L5 dorsal ramus. 2- Left multi-site radiofrequency thermocoagulation/ablation of the S1, S2, lateral branchs. The procedure was performed using fluoroscopic guidance during needle placement to assure proper position and maximize safety . ANESTHESIA: LOCAL ANESTHESIA = moderate sedation with intravenous versed 1 mg and Fentanyle 50 mcg EBL: NONE INDICATION/MEDICAL NECESSITY: History of low back pain secondary to bilateral sacroiliitis and lumbosacral arthropathy unresponsive to more conservative treatments. The patient reported more than 50% relief of pain symptoms following 2 previous diagnostic blocks with Bupivacaine. PROCEDURE DESCRIPTION: The patient was seen and identified in the preoperative area. Risks, benefits, complications, and alternatives were discussed with the patient. The patient agreed to proceed with the procedure and signed the consent. Vital signs were checked before and after the procedure and they remained stable. Patient ambulated to the procedure room and time out was completed. The patient was placed in the prone position on the procedure table and a pillow was placed under the abdomen to reduce lumbar lordosis. The lumbosacral area was prepped and draped in the usual sterile fashion. Critical pause was taken. Left L5 Dorsal Ramus RF: Using right oblique fluoroscopy, the junction of the transverse process and the superior articular process of the left S1 vertebra, which correspond to the fluoroscopic image of the "eye of the Navarro dog" was identified. Subsequently, a 10-cm 20 -gauge radiofrequency cannula with a 10-mm active tip was advanced under fluoroscopic guidance until contact was made with periosteum. At this level, the Sensory testing of the L5 dorsal ramus was performed at 50 Hz and 0 to 1 volt with production of concordant pain starting at 0.5 volt. Motor stimulation was done at 2.5 Hz with stimulation of mulitifidus muscle contration . No radicular symptoms or paresthesias were produced during the testing. Subsequently, the L5 dorsal ramus was subjected to a radiofrequency ablation at 80 degree celsius for 90 seconds . after 0.5% Bupivacaine 1 ml injected at each level after negative aspirations . The needle was withdrawn intact .. Left S1, S2 Lateral Branch RF: The lateral margins of theLeft S1, S2, and S3 foramina were identified using AP fluoroscopy. Under fluoroscopic guidance, three 10-cm 20 -gauge radiofrequency cannula with a 10-mm active tip were inserted at 8-10 mm peripheral to the posterior S1 foramen, at various locations using clock-face coordinates. The center of the clock was registered at the lateral margin of the foramen. The 6:30, 8:00, and 9:30 oclock positions were used. At this level , the sensory testing of the S1 lateral branch was performed at 50 Hz and 0 to 1 volt at the three levels with production of concordant pain starting at 0.5 volt. Motor stimulation was done at 2.5 Hz. No radicular symptoms or paresthesias were produced during the testing. Subsequently, the S1 lateral branch was subjected to a radiofrequency ablation at a mode of 90 seconds at 80 degrees Celsius at the 3 levels after negative motor and sensory testing and after injecting 0.5 ml of preservative free Bupivacaine 0.5 %. The same procedure was performed at the level of the S2 foramen. I was not able to visualize the S3 foramen, The needle was withdrawn intact after each injection. COMPLICATIONS: The patient tolerated the procedure well without any acute complications. DISPOSTION/PLAN: The patient ambulated to the recovery area after the procedure in a stable condition for observation. Patient was reexamined prior to discharge. Patient was observed for 30 minutes in the recovery area and was discharged home, accompanied by an adult, after meeting discharged criteria. Discharge instructions were give to the patient by the staff. Patient was specifically instructed not to drive today and to rest for the rest of the day. The patient will schedule a follow up visit in the clinic in weeks or earlier if needed.
--- NOTE | 2018-04-28 10:27 | FL ---
EXAMINATION TYPE: FL guided pain mgmt statistic DATE OF EXAM: 04/28/2018 CLINICAL HISTORY: Low back and SI joint pain. TECHNIQUE: Fluoroscopy. COMPARISON: None. FINDINGS: Fluoroscopic guidance was provided during pain relief procedure performed by Dr. Escalante . A total of 15 seconds of fluoroscopic time was utilized during the procedure and 5 spot images are acquired. Images acquired shows needle localization at several levels in the sacrum. IMPRESSION: As Above.
[2018-04-28 10:29] VITALS: BP 118/83; PULSE 67
== END 2018-04-28 10:45 | disposition home or self-care (01) ==
LOC: ORPAIN 08:17
PROVIDERS: ATTEND Specialist
DX: M47.817 Spondylosis without myelopathy or radiculopathy, lumbosacral region (principal); M51.26 Other intervertebral disc displacement, lumbar region; M46.1 Sacroiliitis, not elsewhere classified
CPT/HCPCS: 64635; 64640 ×2; J2250; J1030; J2405; J3010; 64636; 99152; 99153

== ENCOUNTER 2018-05-25 06:48 | Day surgery (SDC) | payer OTHER ==
[2018-05-24 11:21] VITALS: BMI 29.6
[2018-05-25 07:18] VITALS: RESP 16; TEMP 97.7
[2018-05-25] MEDS ORDERED: LACTATED RINGERS 1,000 ML IV ONE (07:32)
[2018-05-25] MEDS ORDERED: ONDANSETRON 4 MG/2 ML VIAL IVP ONE (07:32)
[2018-05-25] MEDS ORDERED: LIDOCAINE 1% 20 ML VIAL (10MG/ML) FOR IV START INTRADERMA ONE ×2 (07:32→07:33)
--- NOTE | 2018-05-25 09:27 | P.PCN ---
Date of Procedure: 05/25/18 Description of Procedure: PREOPERATIVE DIAGNOSIS: 1-Lumbosacral spondylosis with facet arthropathy without myelopathy. 2-Bilateral sacroiliitis. 3-lumbar herniated disc disease. post operative Diagnosis: . Same as preop Diagnoses PROCEDURES: 1- Right radiofrequency thermocoagulation/ablation of the L5 dorsal ramus. 2- Right multi-site radiofrequency thermocoagulation/ablation of the S1, S2, S3 lateral branches. The procedure was performed using fluoroscopic guidance during needle placement to assure proper position and maximize safety ANESTHESIA: LOCAL ANESTHESIA with moderate sedation with intravenous versed 1 mg and Fentanyle 50 mcg EBL: NONE INDICATION/MEDICAL NECESSITY: History of low back pain secondary to bilateral sacroiliitis and lumbosacral arthropathy unresponsive to more conservative treatments. The patient reported more than 80% relief of pain symptoms following 2 previous diagnostic blocks with Bupivacaine. PROCEDURE DESCRIPTION: The patient was seen and identified in the preoperative area. Risks, benefits, complications, and alternatives were discussed with the patient. The patient agreed to proceed with the procedure and signed the consent. Risks include bleeding, nerve damage, postprocedural discomfort. Vital signs were checked before and after the procedure and they remained stable. Patient ambulated to the procedure room and time out was completed. The patient was placed in the prone position on the procedure table and a pillow was placed under the abdomen to reduce lumbar lordosis. The lumbosacral area was prepped and draped in the usual sterile fashion. Critical pause was taken. Right L5 Dorsal Ramus RF: Using right oblique fluoroscopy, the junction of the transverse process and the superior articular process of the right S1 vertebra, which correspond to the fluoroscopic image of the "eye of the Navarro dog" was identified. Subsequently, a 10-cm 20 -gauge radiofrequency cannula with a 10-mm active tip was advanced under fluoroscopic guidance until contact was made with periosteum. At this level, the Sensory testing of the L5 dorsal ramus was performed at 50 Hz and 0 to 1 volt with production of concordant pain starting at 0.5 volt. Motor stimulation was done at 2.5 Hz with stimulation of mulitifidus muscle contration . No radicular symptoms or paresthesias were produced during the testing. Subsequently, the L5 dorsal ramus was subjected to a radiofrequency ablation at 80 degree celsius for 90 seconds . after 0.5% Bupivacaine 1 ml injected at each level after negative aspirations . The needle was withdrawn intact. Right S1, S2, S3 Lateral Branch RF: The lateral margins of right S1, S2, and S3 foramina were identified using AP fluoroscopy. Under fluoroscopic guidance, three 10-cm 20 -gauge radiofrequency cannula with a 10-mm active tip were inserted at 8-10 mm peripheral to the posterior S1 foramen, at various locations using clock-face coordinates. The center of the clock was registered at the lateral margin of the foramen. The 6: 30, 8:00, and 9:30 oclock positions were used. At this level, the sensory testing of the S1 lateral branch was performed at 50 Hz and 0 to 1 volt at the three levels with production of concordant pain starting at 0.5 volt. Motor stimulation was done at 2.5 Hz. No radicular symptoms or paresthesias were produced during the testing. Subsequently, the S1 lateral branch was subjected to a radiofrequency ablation at a mode of 90 seconds at 80 degrees Celsius at the 3 levels after negative motor and sensory testing and after injecting 0.5 ml of preservative free Bupivacaine 0.5 %. The same procedure was performed at the level of the S2 foramen. The same was done with the S3 foramen. The needle was withdrawn intact after each injection. COMPLICATIONS: The patient tolerated the procedure well without any acute complications. DISPOSTION/PLAN: The patient ambulated to the recovery area after the procedure in a stable condition for observation. Patient was reexamined prior to discharge. Patient was observed for 30 minutes in the recovery area and was discharged home, accompanied by an adult, after meeting discharged criteria. Discharge instructions were give to the patient by the staff. Patient was specifically instructed not to drive today and to rest for the rest of the day. The patient will schedule a follow up visit in the clinic in weeks or earlier if needed.
[2018-05-25] MEDS ORDERED: IV FLUID CONTINUATION 1,000 ML IV ONE (09:30)
[2018-05-25 09:40] VITALS: BP 125/75; PULSE 66
--- NOTE | 2018-05-25 09:42 | FL ---
EXAMINATION TYPE: FL guided pain mgmt statistic DATE OF EXAM: 05/25/2018 CLINICAL HISTORY: Low back and right sacroiliac joint pain. TECHNIQUE: Fluoroscopy. COMPARISON: None. FINDINGS: Fluoroscopic guidance was provided during pain relief procedure performed by Dr. Fernandez . A total of 31 seconds of fluoroscopic time was utilized during the procedure and two spot images are acquired. Images acquired shows needle localization at level of sacroiliac joint and lateral sacrum . IMPRESSION: As Above.
[2018-05-25] MEDS ORDERED: KETOROLAC 30 MG/ML 1 ML VIAL IVP ONE (10:04)
== END 2018-05-25 10:40 | disposition home or self-care (01) ==
LOC: ORPAIN 06:48
PROVIDERS: ATTEND Anesthesiology
DX: M47.817 Spondylosis without myelopathy or radiculopathy, lumbosacral region (principal); M46.1 Sacroiliitis, not elsewhere classified; M51.26 Other intervertebral disc displacement, lumbar region; Z79.01 Long term (current) use of anticoagulants; Z91.040 Latex allergy status; Z91.09 Other allergy status, other than to drugs and biological substances
CPT/HCPCS: 64640; 64635; J2250; J3301; J2405; J3010; J1885; 64636; 99152; 99153

== ENCOUNTER → 2018-06-20 | Outpatient (CLI) | payer OTHER ==
[2018-06-20 12:19] VITALS: BP 131/87; PULSE 80; RESP 16; TEMP 98.1
--- NOTE | 2018-06-20 12:39 | P.PN ---
Progress Note - Text Progress Note Date: 06/20/18 Progress Note Date: 06/20/2018 Patient returns for followup for chronic R > L back and hip pain. Patient had bilateral sacral lateral branch ablation with relief greater than 60%. She is also complaining of right hip pain is worse with extension and pivoting. She had a bone scan done in the past that showed that she had decreased uptake in her bilateral hips. During physical therapy her physiatry said that she had a off-center pelvis as well. Patient continues on tramadol medications for pain with some relief from PCP. Patient denies adverse drug effects from medications. In addition to above, 13-point review of systems is also negative for shortness of breath, changes in vision, changes in hearing, new onset weakness, abdominal pain, diarrhea, extreme fatigue, malaise, fever, skin changes, homicidal or suicidal ideation, or bowel or bladder incontinence. Patient did endorse some chest pain in office today, but it improved substantially after she sat for 5- 10 minutes. Vital Signs: Reviewed in EMR Gen: WDWN, AAOx3, NAD HEENT: NCAT, EOMI, hearing grossly normal Pulm: resp unlabored Abd: soft, NT, ND Neck: supple, trachea midline ROM in flexion lumbar spine: reduced ROM in extension lumbar spine: reduced Lumbar paravertebral tenderness: + Facet loading: + bilateral SI joint tenderness: neg Sher's test: neg Straight leg raise: neg Lower extremity: reduced sensation to pinprick RLE below the knee ++Pain with Hip flexion on RIGHT Imaging: Reviewed in EMR Assessment: 1. lumbar spondylosis 2. SIJ dysfunction 3. chronic pain syndrome 4. Right Hip OA 5. Right Knee OA Plan: 1. Explanation: Opioid and psychological risk scores were reviewed. Diagnoses , prognoses, and multiple treatment options including but not limited to physical therapy, interventional therapies, adjuvant medical therapies, narcotic medication therapies, and surgery were discussed with the patient and all questions were answered to the patient's satisfaction. 2. Opioid agreement: Patient has previously signed narcotic agreement, and was orally counseled to not overuse, abuse, divert, or cell medications, and to take them as prescribed by only 1 healthcare provider. The patient was also counseled to store opioid medications in a safe and preferably locked location. Patient was also counseled against driving or operating heavy equipment while using narcotic medications and also to not use alcohol or any illicit or recreational drugs. The patient verbalized understanding that lack of compliance with any of the above and likely result in failure to renew narcotic prescriptions, possible discharge from the clinic, and possible legal ramifications thereafter if indicated. 3. Counseling: The patient was counseled extensively on SMOKING CESSATION, BODY MASS INDEX, EXERCISE. Specifically, the patient was instructed regarding the importance of smoking cessation, weight control, and exercise in the context of both chronic pain and overall health. 4. Procedures: None 5. Consultations: None 6. Investigations: MAPS queried and appropriate, B/L Hip Xray and Right Knee Xray 7. Medications: none prescribed 8. Morphine equivalents per day prescribed: zero 9. Disposition: f/u 4 weeks to review imaging PQRS measures: 1-Patient's medications are documented in the chart. 2-Tobacco use is positive/negative, counseling NOT given 3-Patient has not had a pneumococcal vaccine. 4-Advanced care planning discussed, patient unable to give. 5-Opioid contract signed with the patient. 6-Pain positive, follow-up visit or procedure scheduled 7-Patient's blood pressure measured and documented, and patient will follow up with the primary care due to hypertension. 8-Patient's weight was measured, and body mass index ABOVE/BELOW the normal limits, and counseling was done. Patient instructed to follow up with PCP. 9-Patient WAS/WAS NOT identified as an unhealthy alcohol user.
--- NOTE | 2018-06-20 13:29 | XR ---
EXAMINATION TYPE: XR knee complete RT DATE OF EXAM: 06/20/2018 CLINICAL HISTORY: pain TECHNIQUE: Three views of the right knee are obtained. COMPARISON: 06/30/2011 FINDINGS: There is no acute fracture/dislocation. Moderate degenerative narrowing medial tibiofemora l joint space as well as the patellofemoral joint space. Small suprapatellar joint effusion noted. Th e overlying soft tissue appears unremarkable. IMPRESSION: There is no acute fracture or dislocation.ICD 10 NO FRACTURE, INITIAL EVALUATION
--- NOTE | 2018-06-20 13:31 | XR ---
EXAMINATION TYPE: XR Hip Bilateral Complete DATE OF EXAM: 06/20/2018 CLINICAL HISTORY: pain TECHNIQUE: AP and frogleg views of the bilateral hips are obtained. COMPARISON: None. FINDINGS: There is no acute fracture/dislocation evident. Mild degenerative joint space narrowing is seen bilaterally. The overlying soft tissue appears unremarkable. IMPRESSION: 1. There is no acute fracture or dislocation. ICD 10 NO FRACTURE, INITIAL EVALUATION
== END | disposition home or self-care (01) ==
LOC: PNWHC3 11:46
PROVIDERS: ATTEND Anesthesiology
DX: G89.4 Chronic pain syndrome (principal); M47.816 Spondylosis without myelopathy or radiculopathy, lumbar region; M53.3 Sacrococcygeal disorders, not elsewhere classified; M16.11 Unilateral primary osteoarthritis, right hip; M17.11 Unilateral primary osteoarthritis, right knee; Z98.890 Other specified postprocedural states
CPT/HCPCS: 73521; 73562; G0463; 99211

== ENCOUNTER 2018-07-10 09:14 | Observation (INO) | payer OTHER ==
[2018-07-10] MEDS ORDERED: ASPIRIN 81 MG PO STA (09:36)
[2018-07-10] MEDS ORDERED: NITROGLYCERIN OINT 1 INCH/GM PACKET TOPICAL STA (09:36)
--- NOTE | 2018-07-10 09:40 | ED ---
General Adult HPI - General Chief complaint: Chest Pain Stated complaint: Arm pain Time Seen by Provider: 07/10/18 09:15 Source: patient, RN notes reviewed Mode of arrival: ambulatory Limitations: no limitations - History of Present Illness Initial comments: This is a 58-year-old female presents emergency Department with a past medical history significant for fibromyalgia and high cholesterol. Patient comes in today stating that she woke up in the middle the night with a heart racing and sweating. Patient states it didn't bother her too much and she had no chest pain so she went back to sleep. Patient states she woke up and had no symptoms at all but just before she went to yarsanism this morning she started having some upper left chest discomfort which was into her back and down her left arm. Patient states that discomfort remains. Patient states she has no shortness of breath or difficulty breathing. Patient denies any sweating aside from when she woke up early in the morning. Patient denies any nausea. Patient denies abdominal pain. Patient denies lightheadedness dizziness or near syncopal episode. Patient denies any headache patient denies numbness weakness. Patient states she just doesn't feel right she is not able to exactly explain how. Patient states sometimes she thinks movement makes this pain in her arm and chest worse and other time she thinks it does not. Patient denies any high blood pressure diabetes or smoking. - Related Data Home Medications Medication Instructions Recorded Confirmed Atorvastatin Calcium [Lipitor] 40 mg PO DAILY 09/24/13 06/20/18 Dicyclomine [Bentyl] 20 mg PO DAILY 09/24/13 06/20/18 Gabapentin [Neurontin] 800 mg PO QID PRN 09/24/13 06/20/18 Levothyroxine Sodium [Synthroid] 112 mcg PO QAM 09/24/13 06/20/18 Loratadine 10 mg PO DAILY 09/24/13 06/20/18 Nitroglycerin Sl Tabs [Nitrostat] 0.4 mg PO DIRECTED PRN 09/24/13 06/20/18 Solifenacin Succinate [Vesicare] 10 mg PO DAILY 09/24/13 06/20/18 Warfarin [Coumadin] 10 mg PO SUMOWEFRSA 09/24/13 06/20/18 Warfarin [Coumadin] 12.5 mg PO TUTH 09/24/13 06/20/18 buPROPion SR [Wellbutrin SR] 150 mg PO BID 09/24/13 06/20/18 Calcium/Magnesium/Zinc 1 each PO DAILY 07/27/17 06/20/18 [Pwjofck-Levvsiasv-Ebcr Tablet] Cyanocobalamin (Vitamin B-12) 2,000 mcg PO DAILY 07/27/17 06/20/18 [Vitamin B-12] Ergocalciferol [Vitamin D2] 50,000 unit PO FR 07/27/17 06/20/18 Cyclobenzaprine [Flexeril] 10 mg PO HS 04/26/18 06/20/18 traMADol HCL [Ultram] 50 mg PO Q6HR PRN 06/20/18 06/20/18 Previous Rx's Medication Instructions Recorded Omeprazole 40 mg PO DAILY #60 capsule. 10/23/16 Allergies Allergy/AdvReac Type Severity Reaction Status Date / Time Iodinated Contrast- Oral and Allergy Rash/Hives, Verified 07/10/18 09:17 IV Dye swelling,it [Iodinated Contrast Media - tiffanie Oral and] iodine Allergy Rash/Hives, Verified 07/10/18 09:17 swelling,it tiffanie latex Allergy Swelling,it Verified 07/10/18 09:17 tiffanie,hives Review of Systems ROS Statement: Those systems with pertinent positive or pertinent negative responses have been documented in the HPI. ROS Other: All systems not noted in ROS Statement are negative. Past Medical History Past Medical History: Blood Disorder, Chest Pain / Angina, Deep Vein Thrombosis (DVT), Fibromyalgia, GERD/Reflux, Hyperlipidemia, Osteoarthritis (OA), Pulmonary Embolus (PE), Thyroid Disorder Additional Past Medical History / Comment(s): RECENT FALL, "SCABS ON LEFT ELBOW AND KNEE"CHRONIC BACK PAIN, LISE LEGS NEUROPATHY. HX Urinary incontinence, IBS. BRUISES EASILY D/T RX. HAS BLOOD CLOTTING DISORDER GENE, UNSURE NAME. History of Any Multi-Drug Resistant Organisms: None Reported Past Surgical History: Breast Surgery, Cholecystectomy, Hysterectomy, Orthopedic Surgery Additional Past Surgical History / Comment(s): Breast reduction, LISE WRIST CARPAL TUNNEL, LEFT WRIST SX TO REPAIR TENDONS/LIGAMENTS,R Rotator cuff repair; LISE CATARACTS, RT KNEE MENISCUS REPAIR. HAS HAD SPINAL EPIDURALS, ABLATIONS. Past Anesthesia/Blood Transfusion Reactions: Motion Sickness, Postoperative Nausea & Vomiting (PONV) Additional Past Anesthesia/Blood Transfusion Reaction / Comment(s): no problems with prior blood transfusion Past Psychological History: No Psychological Hx Reported Smoking Status: Never smoker Past Alcohol Use History: Occasional Past Drug Use History: None Reported - Past Family History Brother(s) Family Medical History: Cancer, Congestive Heart Failure (CHF) Additional Family Medical History / Comment(s): lymphoma,lung [place] General Exam - General Exam Comments Initial Comments: GENERAL: Patient is well-developed and well-nourished. Patient is nontoxic and well- hydrated and is in mild distress. ENT: Neck is soft and supple. No significant lymphadenopathy is noted. Oropharynx is clear. Moist mucous membranes. Neck has full range of motion without eliciting any pain. EYES: The sclera were anicteric and conjunctiva were pink and moist. Extraocular movements were intact and pupils were equal round and reactive to light. Eyelids were unremarkable. PULMONARY: Unlabored respirations. Good breath sounds bilaterally. No audible rales rhonchi or wheezing was noted. CARDIOVASCULAR: There is a regular rate and rhythm without any murmurs gallops or rubs. ABDOMEN: Soft and nontender with normal bowel sounds. No palpable organomegaly was noted. There is no palpable pulsatile mass. SKIN: Skin is clear with no lesions or rashes and otherwise unremarkable. NEUROLOGIC: Patient is alert and oriented x3. Cranial nerves II through XII are grossly intact. Motor and sensory are also intact. Normal speech, volume and content. Symmetrical smile. MUSCULOSKELETAL: Normal extremities with adequate strength and full range of motion. No lower extremity swelling or edema. No calf tenderness. LYMPHATICS: No significant lymphadenopathy is noted PSYCHIATRIC: Normal psychiatric evaluation. Limitations: no limitations Course Vital Signs 07/10/18 07/10/18 09:17 09:37 Temperature 98 F Pulse Rate 87 Pulse Rate [ 85 Threat Analyst ] Respiratory 18 Rate Blood Pressure 150/83 O2 Sat by Pulse 100 Oximetry Medical Decision Making - Medical Decision Making EKG shows normal sinus rhythm at 77 bpm DE interval 222 QRS is 80 QT interval 356 QTC is 42. Patient's EKG shows no ST segment elevation or depression or T wave abnormalities are noted. Chest x-ray shows no acute normalities. She is currently chest pain-free. Because the pain is different than her normal angina start the patient on heparin. I consulted cardiology I wrote admitting orders I spoke with Dr. Sharp he agreed to admit the patient admitted the patient. I continue the heparin and aspirin and Nitropaste on the floor. - Lab Data Result diagrams: 07/10/18 09:44 07/10/18 09:44 Lab Results 07/10/18 07/10/18 07/10/18 Range/Units 09:44 09:44 09:44 WBC 7.7 (3.8-10.6) k/uL RBC 4.22 (3.80-5.40) m/uL Hgb 13.6 (11.4-16.0) gm/dL Hct 41.2 (34.0-46.0) % MCV 97.7 (80.0-100.0) fL MCH 32.2 (25.0-35.0) pg MCHC 33.0 (31.0-37.0) g/dL RDW 13.2 (11.5-15.5) % Plt Count 178 (150-450) k/uL Neutrophils % 63 % Lymphocytes % 23 % Monocytes % 6 % Eosinophils % 4 % Basophils % 1 % Neutrophils # 4.9 (1.3-7.7) k/uL Lymphocytes # 1.8 (1.0-4.8) k/uL Monocytes # 0.5 (0-1.0) k/uL Eosinophils # 0.3 (0-0.7) k/uL Basophils # 0.1 (0-0.2) k/uL PT 18.2 H (9.0-12.0) sec INR 1.8 H (<1.2) APTT 28.9 (22.0-30.0) sec D-Dimer 0.24 (<0.60) mg/L FEU Sodium 140 (137-145) mmol/L Potassium 4.4 (3.5-5.1) mmol/L Chloride 109 H (98-107) mmol/L Carbon Dioxide 25 (22-30) mmol/L Anion Gap 6 mmol/L BUN 20 H (7-17) mg/dL Creatinine 0.70 (0.52-1.04) mg/dL Est GFR (CKD-EPI)AfAm >90 (>60 ml/min/1.73 sqM) Est GFR (CKD-EPI)NonAf >90 (>60 ml/min/1.73 sqM) Glucose 94 (74-99) mg/dL Calcium 9.2 (8.4-10.2) mg/dL Magnesium 1.9 (1.6-2.3) mg/dL Total Bilirubin 0.5 (0.2-1.3) mg/dL AST 23 (14-36) U/L ALT 37 (9-52) U/L Alkaline Phosphatase 47 (38-126) U/L Troponin I (0.000-0.034) ng/mL Total Protein 7.0 (6.3-8.2) g/dL Albumin 4.0 (3.5-5.0) g/dL 07/10/18 Range/Units 09:44 WBC (3.8-10.6) k/uL RBC (3.80-5.40) m/uL Hgb (11.4-16.0) gm/dL Hct (34.0-46.0) % MCV (80.0-100.0) fL MCH (25.0-35.0) pg MCHC (31.0-37.0) g/dL RDW (11.5-15.5) % Plt Count (150-450) k/uL Neutrophils % % Lymphocytes % % Monocytes % % Eosinophils % % Basophils % % Neutrophils # (1.3-7.7) k/uL Lymphocytes # (1.0-4.8) k/uL Monocytes # (0-1.0) k/uL Eosinophils # (0-0.7) k/uL Basophils # (0-0.2) k/uL PT (9.0-12.0) sec INR (<1.2) APTT (22.0-30.0) sec D-Dimer (<0.60) mg/L FEU Sodium (137-145) mmol/L Potassium (3.5-5.1) mmol/L Chloride (98-107) mmol/L Carbon Dioxide (22-30) mmol/L Anion Gap mmol/L BUN (7-17) mg/dL Creatinine (0.52-1.04) mg/dL Est GFR (CKD-EPI)AfAm (>60 ml/min/1.73 sqM) Est GFR (CKD-EPI)NonAf (>60 ml/min/1.73 sqM) Glucose (74-99) mg/dL Calcium (8.4-10.2) mg/dL Magnesium (1.6-2.3) mg/dL Total Bilirubin (0.2-1.3) mg/dL AST (14-36) U/L ALT (9-52) U/L Alkaline Phosphatase (38-126) U/L Troponin I <0.012 (0.000-0.034) ng/mL Total Protein (6.3-8.2) g/dL Albumin (3.5-5.0) g/dL Critical Care Time Critical Care Time: Yes Total Critical Care Time: 35 Disposition Clinical Impression: Unstable angina pectoris Disposition: ADMITTED IP TO THIS HOSP Referrals: Floresita Gonzalez DO [Primary Care Provider] - 1-2 days Time of Disposition: 10:40
[2018-07-10 09:53] LABS: Basophils # (A) 0.1 k/uL (0-0.2); Basophils % (A) 1 %; Eosinophils # (A) 0.3 k/uL (0-0.7); Eosinophils % (A) 4 %; HCT 41.2 % (34.0-46.0); HGB 13.6 gm/dL (11.4-16.0); Lymphocytes # (A) 1.8 k/uL (1.0-4.8); Lymphocytes % (A) 23 %; MCH 32.2 pg (25.0-35.0); MCV 97.7 fL (80.0-100.0); Mean Platelet Volume 7.3; Monocytes # (A) 0.5 k/uL (0-1.0); Monocytes % (A) 6 %; Neutrophils # (A) 4.9 k/uL (1.3-7.7); Neutrophils % (A) 63 %; Platelet Count 178 k/uL (150-450); RBC 4.22 m/uL (3.80-5.40); RDW 13.2 % (11.5-15.5); WBC 7.7 k/uL (3.8-10.6)
[2018-07-10 10:02] LABS: ALT 37 U/L (9-52); AST 23 U/L (14-36); Alkaline Phosphatase 47 U/L (38-126); Anion Gap 6 mmol/L; Blood Urea Nitrogen 20 mg/dL (7-17); Calcium 9.2 mg/dL (8.4-10.2); Carbon Dioxide 25 mmol/L (22-30); Chloride 109 mmol/L (98-107); Glucose 94 mg/dL (74-99); Magnesium 1.9 mg/dL (1.6-2.3); Potassium 4.4 mmol/L (3.5-5.1); Sodium 140 mmol/L (137-145); Total Bilirubin 0.5 mg/dL (0.2-1.3)
--- NOTE | 2018-07-10 10:08 | XR ---
EXAMINATION TYPE: XR chest 2V DATE OF EXAM: 07/10/2018 COMPARISON: 11/23/2015 HISTORY: 58-year-old female with left-sided chest pain and tachycardia TECHNIQUE: PA and lateral views FINDINGS: Similar slight elevation of the left hemidiaphragm. Heart normal size. Aorta and pulmonary vasculatur e within normal limits. Mild interstitial prominence is unchanged. No consolidation or pleural effusi on. IMPRESSION: Chronic changes without acute cardiopulmonary process. Similar slight elevation of the left hemidiaph ragm. This is nonspecific but may be seen in the setting of hemidiaphragmatic paralysis. Clinically c orrelate for any chronic shortness of breath.
[2018-07-10 10:10] LABS: D-Dimer 0.24 mg/L FEU (<0.60); INR 1.8 (<1.2); Partial Thromboplastin Time 28.9 sec (22.0-30.0); Prothrombin Time 18.2 sec (9.0-12.0)
[2018-07-10] MEDS ORDERED: NITROGLYCERIN SL TABS 0.4 MG TAB SUBLINGUAL PRN (10:41)
[2018-07-10] MEDS ORDERED: HEPARIN SODIUM,PORCINE 5,000 UNIT/ML 1 ML VIAL IV ONE (10:41)
[2018-07-10] MEDS ORDERED: HEPARIN SOD,PORK IN 0.45% NACL 25,000 UNIT in 0.45% NACL 1 250ML.BAG IV SCH (10:45)
[2018-07-10 12:52] VITALS: BMI 30.9
--- NOTE | 2018-07-10 14:52 | P.HPIM ---
History of Present Illness H&P Date: 07/10/18 Chief Complaint: Chest pain Izabella Cavazos is a 58-year-old female patient of Dr. Floresita Gonzalez who presented to [facility] with a chief complaint of chest pain. Patient stated that she woke up in the middle of the night complaining of palpitation and feeling her heart racing, she went back to sleep she woke up in the morning and she felt fine, however shortly after that she started having episodes of chest pain patient describes a pressure sensation in the middle of her chest radiating to the left upper chest and to her back and down her left arm patient came to emergency room there was no shortness of breath no sweating no nausea or vomiting chest pain resolved in the emergency room. Patient has a known history of angina diagnosed more than 10 years ago she had previous stress test and a history of cardiac catheterization that revealed no significant stenosis she never had angioplasty or stent placement in the past she follows was Dr. Yadav as outpatient. Patient has known history of hyperlipidemia, hypothyroidism, peripheral neuropathy, and history of DVT and pulmonary embolism in 2013 patient stated that she has abnormality with factor V and has been maintained on Coumadin since 2013. INR on presentation was slightly low at 1.8 d-dimer was normal at 0.24 Past Medical History Past Medical History: Blood Disorder, Chest Pain / Angina, Deep Vein Thrombosis (DVT), Fibromyalgia, GERD/Reflux, Hyperlipidemia, Osteoarthritis (OA), Pulmonary Embolus (PE), Thyroid Disorder Additional Past Medical History / Comment(s): RECENT FALL, "SCABS ON LEFT ELBOW AND KNEE"CHRONIC BACK PAIN, LISE LEGS NEUROPATHY. HX Urinary incontinence, IBS. BRUISES EASILY D/T RX. HAS BLOOD CLOTTING DISORDER GENE, UNSURE NAME. History of Any Multi-Drug Resistant Organisms: None Reported Past Surgical History: Breast Surgery, Cholecystectomy, Hysterectomy, Orthopedic Surgery Additional Past Surgical History / Comment(s): Breast reduction, LISE WRIST CARPAL TUNNEL, LEFT WRIST SX TO REPAIR TENDONS/LIGAMENTS,R Rotator cuff repair; LISE CATARACTS, RT KNEE MENISCUS REPAIR. HAS HAD SPINAL EPIDURALS, ABLATIONS. Past Anesthesia/Blood Transfusion Reactions: Motion Sickness, Postoperative Nausea & Vomiting (PONV) Additional Past Anesthesia/Blood Transfusion Reaction / Comment(s): no problems with prior blood transfusion Past Psychological History: No Psychological Hx Reported Additional Psychological History / Comment(s): takes wellbutrin for "stress" Smoking Status: Never smoker Past Alcohol Use History: Occasional Past Drug Use History: None Reported - Past Family History Brother(s) Family Medical History: Cancer, Congestive Heart Failure (CHF) Additional Family Medical History / Comment(s): lymphoma,lung [place] Medications and Allergies Home Medications Medication Instructions Recorded Confirmed Type Atorvastatin Calcium [Lipitor] 40 mg PO DAILY 09/24/13 07/10/18 History Dicyclomine [Bentyl] 20 mg PO DAILY 09/24/13 07/10/18 History Loratadine 10 mg PO DAILY 09/24/13 07/10/18 History Nitroglycerin Sl Tabs [Nitrostat] 0.4 mg PO DIRECTED PRN 09/24/13 07/10/18 History buPROPion SR [Wellbutrin SR] 150 mg PO BID 09/24/13 07/10/18 History Omeprazole 40 mg PO DAILY #60 capsule. 10/23/16 07/10/18 Rx Calcium/Magnesium/Zinc 1 each PO DAILY 07/27/17 07/10/18 History [Nkwehzr-Kahpdtmud-Zine Tablet] Cyanocobalamin (Vitamin B-12) 2,000 mcg PO DAILY 07/27/17 07/10/18 History [Vitamin B-12] Ergocalciferol [Vitamin D2] 50,000 unit PO FR 07/27/17 07/10/18 History Cyclobenzaprine [Flexeril] 10 mg PO HS 04/26/18 07/10/18 History traMADol HCL [Ultram] 50 mg PO Q6HR PRN 06/20/18 07/10/18 History Gabapentin [Neurontin] 800 mg PO QID 07/10/18 07/10/18 History Levothyroxine Sodium [Synthroid] 112 mcg PO DAILY 07/10/18 07/10/18 History Lubiprostone [Amitiza] 24 mg PO DAILY 07/10/18 07/10/18 History Bandera-3 Fatty Acids [Bandera-3] 1,000 mg PO DAILY 07/10/18 07/10/18 History Oxybutynin Chloride [Oxybutynin 10 mg PO DAILY 07/10/18 07/10/18 History Chloride ER] Warfarin Sodium [Coumadin] 10 mg PO SUMOWEFR 07/10/18 07/10/18 History Warfarin [Coumadin] 12.5 mg PO TUTHSA 07/10/18 07/10/18 History metFORMIN HCL 500 mg PO DAILY 07/10/18 07/10/18 History Allergies Allergy/AdvReac Type Severity Reaction Status Date / Time Iodinated Contrast- Oral and Allergy Rash/Hives, Verified 07/10/18 12:07 IV Dye swelling,it [Iodinated Contrast Media - tiffanie Oral and] iodine Allergy Rash/Hives, Verified 07/10/18 12:07 swelling,it tiffanie latex Allergy Swelling,it Verified 07/10/18 12:07 tiffanie,hives Physical Exam Vitals: Vital Signs Temp Pulse Pulse Pulse Resp BP BP 07/10/18 12:25 98.1 F 75 16 117/76 07/10/18 11:59 73 18 110/77 07/10/18 10:49 72 18 116/77 07/10/18 09:37 85 07/10/18 09:17 98 F 87 18 150/83 Pulse Ox 07/10/18 12:25 98 07/10/18 11:59 99 07/10/18 10:49 100 07/10/18 09:37 07/10/18 09:17 100 Intake and Output 07/09/18 07/10/18 07/10/18 22:59 06:59 14:59 Other: Weight 76.657 kg In general patient is alert and oriented 3 in no apparent distress HEENT head normocephalic and atraumatic Neck is supple no JVD no goiter no lymphadenopathy Chest exam reveals a few scattered crackles no wheezing Cardiac exam reveals regular heart sounds S1 and S2 no gallops no murmurs nor Abdomen is soft nontender no organomegaly with normal bowel sounds Extremity exam reveals no edema no cyanosis or clubbing Neurological examination reveals no gross focal deficit Results CBC & Chem 7: 07/10/18 09:44 07/10/18 09:44 Labs: Abnormal Lab Results - Last 24 Hours (Table) 07/10/18 07/10/18 Range/Units 09:44 09:44 PT 18.2 H (9.0-12.0) sec INR 1.8 H (<1.2) Chloride 109 H (98-107) mmol/L BUN 20 H (7-17) mg/dL Thrombosis Risk Factor Assmnt - Choose All That Apply Any of the Below Risk Factors Present?: Yes Each Factor Represents 1 point: Age 41-60 years, Obesity (BMI >25) Other Risk Factors: Yes Thrombosis Risk Factor Assessment Total Risk Factor Score: 2 Thrombosis Risk Factor Assessment Level: Low Risk Assessment and Plan Plan: #1 episode of chest pain resolved, currently maintained on IV heparin awaiting cardiology evaluation, so far EKG and first set of cardiac enzymes are negative #2 known history of angina, patient had normal cardiac catheterization in the past about 8 years ago #3 underlying history of hyperlipidemia #4 underlying history of pulmonary embolism with factor V deficiency maintained on Coumadin INR is slightly subtherapeutic at 1.8 d-dimer is negative At this time will continue to monitor cardiac enzymes and telemetry continue IV heparin Awaiting cardiology evaluation will follow in a.m.
[2018-07-10] MEDS: ATORVASTATIN 40 MG TAB PO SCH (16:17)
[2018-07-10] MEDS: NITROGLYCERIN OINT 1 INCH/GM PACKET TOPICAL SCH (16:36)
[2018-07-10] MEDS ORDERED: WARFARIN 10 MG TAB PO ONE (18:00)
[2018-07-10] MEDS: buPROPion SR 150 MG TABLET.ER PO SCH (19:35)
[2018-07-10] MEDS ORDERED: CYCLOBENZAPRINE 10 MG TAB PO SCH (21:00)
[2018-07-11 00:12] VITALS: RESP 18
[2018-07-11] MEDS: NITROGLYCERIN OINT 1 INCH/GM PACKET TOPICAL SCH (01:58)
[2018-07-11] MEDS ORDERED: traMADol 50 MG TAB PO PRN (07:35)
[2018-07-11 07:43] LABS: Basophils # (A) 0.1 k/uL (0-0.2); Basophils % (A) 1 %; Eosinophils # (A) 0.3 k/uL (0-0.7); Eosinophils % (A) 4 %; HCT 36.8 % (34.0-46.0); HGB 11.9 gm/dL (11.4-16.0); Lymphocytes % (A) 33 %; MCHC 32.4 g/dL (31.0-37.0); MCV 98.7 fL (80.0-100.0); Mean Platelet Volume 7.7; Monocytes # (A) 0.4 k/uL (0-1.0); Monocytes % (A) 6 %; Neutrophils # (A) 3.2 k/uL (1.3-7.7); Neutrophils % (A) 53 %; Platelet Count 155 k/uL (150-450); RBC 3.72 m/uL (3.80-5.40); RDW 13.2 % (11.5-15.5)
[2018-07-11 07:54] LABS: INR 1.8 (<1.2); Partial Thromboplastin Time 62.6 sec (22.0-30.0); Prothrombin Time 17.5 sec (9.0-12.0)
--- NOTE | 2018-07-11 07:59 | CONS ---
CONSULTATION Mrs Cavazos is a 58-year-old female with known history of hyperlipidemia and diabetes mellitus, who presented to the hospital with symptoms of palpitation and chest discomfort. Patient woke up with palpitation, lasted for about half an hour, not associated with any other symptoms. Subsequently, she started to have some discomfort in the left side of the chest radiating to the left arm, that was not associated with any other symptoms. The patient is usually average in her exercise tolerance limited by her knee discomfort. She has no exertional chest discomfort. She carries diagnosis of angina pectoris, although according to her, she has underwent cardiac catheterization in the past that was unremarkable. She has been followed by Dr. Yadav, but has not seen him in few years. She has no history of clear PND, orthopnea, or peripheral edema. No history of arrhythmia or syncope. She feels dizzy at rest. Her coronary risk factors are remarkable for hyperlipidemia and diabetes. She is a non smoker. MEDICATION: At home include metformin, Lipitor 40 mg daily, bupropion, Coumadin, vitamin D, Synthroid, Neurontin, Amitiza, omega-3 fish oil, Ultram, and Bentyl. She has factor V Leiden deficiency. REVIEW OF SYSTEMS: RESPIRATORY SYSTEM: She had recent bronchitis. No recent fever. GI SYSTEM: No recent GI bleed. No peptic ulcer disease. SYSTEM: No dysuria or hematuria. NERVOUS SYSTEM: She has been told she had a TIA in the past. PHYSICAL EXAMINATION: A 58-year-old female, alert, oriented, in no apparent distress. Blood pressure 99/60 with a heart rate in the 60s. HEAD: Normocephalic. EYES: Sclerae nonicteric. NECK: Good upstroke, no bruit, no jugular venous distention. CHEST: Clear to auscultation. HEART: Regular rate and rhythm, S1, S2. No S3. No S4. No murmur or rub. ABDOMEN: Soft, nontender, positive bowel sounds, no organomegaly. EXTREMITIES: No edema, intact pulses. LAB DATA: Revealed troponin less than 0.012. BUN and creatinine 20 and 0.7 potassium 4.4. D- dimer 0.24. EKG revealed a sinus mechanism, normal axis and intervals, normal electrocardiogram. Chest x-ray shows no acute changes. IMPRESSION: 1. Chest discomfort atypical for ischemic heart disease, probably noncardiac. 2. Palpitation with no evidence of malignant arrhythmia so far. 3. History of diabetes. 4. Hyperlipidemia. RECOMMENDATION: I recommend proceeding with a stress dobutamine echocardiogram and transthoracic echo and depending on the results of the testing, further recommendation will be made. Thank you for this consult. Will follow with you. FORREST / IJN: [id number] /
[2018-07-11] MEDS ORDERED: LEVOTHYROXINE 112 MCG TAB PO SCH (08:00)
[2018-07-11] MEDS ORDERED: DOBUTamine DRIP for NUC MED 500 MG in DEXTROSE/WATER 1 250ML.BAG IV ONE (08:00)
[2018-07-11] MEDS ORDERED: DICYCLOMINE 20 MG TAB PO SCH (09:00)
[2018-07-11] MEDS ORDERED: CYANOCOBALAMIN 500 MCG TAB PO SCH (09:00)
[2018-07-11] MEDS ORDERED: metFORMIN 500 MG TAB PO SCH (09:00)
[2018-07-11] MEDS ORDERED: NON-FORMULARY DRUG (Calcium/Magnesium/Zinc [Calcium-Magnesium-Zinc Tablet] 1 EACH) PO SCH (09:00)
[2018-07-11] MEDS ORDERED: ASPIRIN 325 MG TAB PO SCH (09:00)
[2018-07-11 09:07] LABS: ALT 33 U/L (9-52); AST 17 U/L (14-36); Albumin 3.1 g/dL (3.5-5.0); Alkaline Phosphatase 34 U/L (38-126); Anion Gap 2 mmol/L; Blood Urea Nitrogen 18 mg/dL (7-17); Calcium 8.9 mg/dL (8.4-10.2); Carbon Dioxide 28 mmol/L (22-30); Chloride 111 mmol/L (98-107); Cholesterol 203 mg/dL (<200); Glucose 93 mg/dL (74-99); HDL Cholesterol 86 mg/dL (40-60); LDL Cholesterol,Calculated 107 mg/dL (0-99); Potassium 4.2 mmol/L (3.5-5.1); Sodium 141 mmol/L (137-145); Total Bilirubin 0.7 mg/dL (0.2-1.3); Total Protein 5.7 g/dL (6.3-8.2); Triglycerides 52 mg/dL (<150)
--- NOTE | 2018-07-11 11:52 | ECHOF ---
Referral Reason:cp MEASUREMENTS -------- HEIGHT: 157.5 cm WEIGHT: 76.7 kg BP: 99/63 RVIDd: 2.2 cm (< 3.3) IVSd: 0.8 cm (0.6 - 1.1) LVIDd: 4.6 cm (3.9 - 5.3) LVPWd: 0.9 cm (0.6 - 1.1) IVSs: 1.1 cm LVIDs: 3.2 cm LVPWs: 1.1 cm LAESV Index (A-L): 18.25 ml/m Ao Diam: 3.1 cm (2.0 - 3.7) AV Cusp: 1.7 cm (1.5 - 2.6) LA Diam: 2.8 cm (2.7 - 3.8) EPSS: 1.3 cm MV E Wilian: 0.90 m/s MV DecT: 245 ms MV A Wilian: 0.74 m/s MV E/A Ratio: 1.21 RAP: 5.00 mmHg RVSP: 20.06 mmHg MV EF SLOPE: 128.77 mm/s (70 - 150) MV EXCURSION: 1.77 cm (> 18.000) FINDINGS -------- Sinus rhythm. This was a technically adequate study. The left ventricular size is normal. Left ventricular wall thickness is normal. Overall left vent ricular systolic function is normal with, an EF between 55 - 60 %. The right ventricle is normal in size and function. Normal LA size by volume 22+/-6 ml/m2. The right atrium is normal in size. Aortic valve is trileaflet and is mildly thickened. There is no evidence of aortic regurgitation. There is no evidence of aortic stenosis. The mitral valve is normal. Mild mitral regurgitation is present. Mild tricuspid regurgitation present. Right ventricular systolic pressure is normal at < 35 mmHg. There is no evidence of pulmonary hypertension. Trace/mild (physiologic) pulmonic regurgitation. The aortic root size is normal. Normal inferior vena cava with normal inspiratory collapse consistent with estimated right atrial pre ssure of 5 mmHg. There is no pericardial effusion. CONCLUSIONS -------- 1. Sinus rhythm. 2. This was a technically adequate study. 3. The left ventricular size is normal. 4. Left ventricular wall thickness is normal. 5. Overall left ventricular systolic function is normal with, an EF between 55 - 60 %. 6. Normal LA size by volume 22+/-6 ml/m2. 7. Aortic valve is trileaflet and is mildly thickened. 8. Mild mitral regurgitation is present. 9. Mild tricuspid regurgitation present. 10. Right ventricular systolic pressure is normal at < 35 mmHg. 11. Trace/mild (physiologic) pulmonic regurgitation. 12. The aortic root size is normal. 13. There is no pericardial effusion. HELMET HAT PUNCHER: Benjy Lemon RDCS
[2018-07-11 12:05] VITALS: BP 114/76; PULSE 83; TEMP 97.4
[2018-07-11] MEDS: ATORVASTATIN 40 MG TAB PO SCH (12:20)
[2018-07-11] MEDS: buPROPion SR 150 MG TABLET.ER PO SCH (12:23)
--- NOTE | 2018-07-11 13:40 | P.DS ---
Providers Date of admission: 07/10/18 10:41 Expected date of discharge: 07/11/18 Attending physician: Yajaira Bower Consults: 07/10/18 10:41 Consult Physician Urgent Consulting Provider: [facility] Consult Reason/Comments: Unstable angina Do you want consulting provider notified?: Yes Primary care physician: Floresita Gonzalez [facility] Course: Discharge diagnosis #1 episode of chest pain resolved, currently maintained on IV heparin awaiting cardiology evaluation, so far EKG and first set of cardiac enzymes are negative #2 known history of angina, patient had normal cardiac catheterization in the past about 8 years ago #3 underlying history of hyperlipidemia #4 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 Stress echocardiogram and stress test completed. 2-D echo completed showing EF of 55-60%. Patient has been cleared for discharge from cardiology services Patient to take 12.5 Coumadin tonight due to INR 1.8. Then resume home dosing Hospital course Izabella Cavazos is a 58-year-old female patient of Dr. Floresita Gonzalez who presented to [facility] with a chief complaint of chest pain. Patient stated that she woke up in the middle of the night complaining of palpitation and feeling her heart racing, she went back to sleep she woke up in the morning and she felt fine, however shortly after that she started having episodes of chest pain patient describes a pressure sensation in the middle of her chest radiating to the left upper chest and to her back and down her left arm patient came to emergency room there was no shortness of breath no sweating no nausea or vomiting chest pain resolved in the emergency room. Patient has a known history of angina diagnosed more than 10 years ago she had previous stress test and a history of cardiac catheterization that revealed no significant stenosis she never had angioplasty or stent placement in the past she follows was Dr. Yadav as outpatient. Patient has known history of hyperlipidemia, hypothyroidism, peripheral neuropathy, and history of DVT and pulmonary embolism in 2013 patient stated that she has abnormality with factor V and has been maintained on Coumadin since 2013. INR on presentation was slightly low at 1.8 d-dimer was normal at 0.24 On 07/11/2018 patient's alert and oriented 3. At this time patient remaines chest pain-free. Patient underwent stress test. Patient has been cleared for discharge from cardiology standpoint. Patient denies chest pain or shortness of breath. Patient denies nausea vomiting or diarrhea. Patient denies any urinary burning or frequency. I performed an examination of the patient and discussed their management with the Nurse Practitioner. I have reviewed the Nurse Practitioner's notes and agree with the documented findings and plan of care Patient Condition at Discharge: Stable Plan - Discharge Summary New Discharge Prescriptions: Continue Atorvastatin Calcium [Lipitor] 40 mg PO DAILY Nitroglycerin Sl Tabs [Nitrostat] 0.4 mg PO DIRECTED PRN PRN Reason: Chest Pain buPROPion SR [Wellbutrin SR] 150 mg PO BID Dicyclomine [Bentyl] 20 mg PO DAILY Loratadine 10 mg PO DAILY Omeprazole 40 mg PO DAILY #60 capsule. Ergocalciferol [Vitamin D2 (DRISDOL)] 50,000 unit PO FR Cyanocobalamin (Vitamin B-12) [Vitamin B-12] 2,000 mcg PO DAILY Calcium/Magnesium/Zinc [Kjlixbf-Csyioqinc-Jrol Tablet] 1 each PO DAILY Cyclobenzaprine [Flexeril] 10 mg PO HS traMADol HCL [Ultram] 50 mg PO Q6HR PRN PRN Reason: Pain metFORMIN HCL 500 mg PO DAILY Levothyroxine Sodium [Synthroid] 112 mcg PO DAILY Lubiprostone [Amitiza] 24 mg PO DAILY Oxybutynin Chloride [Oxybutynin Chloride ER] 10 mg PO DAILY [place]-3 Fatty Acids [[place]-3] 1,000 mg PO DAILY Warfarin Sodium [Coumadin] 10 mg PO SUMOWEFR Warfarin [Coumadin] 12.5 mg PO TUTHSA Gabapentin [Neurontin] 800 mg PO QID Discharge Medication List Atorvastatin Calcium [Lipitor] 40 mg PO DAILY 09/24/13 [History] Dicyclomine [Bentyl] 20 mg PO DAILY 09/24/13 [History] Loratadine 10 mg PO DAILY 09/24/13 [History] Nitroglycerin Sl Tabs [Nitrostat] 0.4 mg PO DIRECTED PRN 09/24/13 [History] buPROPion SR [Wellbutrin SR] 150 mg PO BID 09/24/13 [History] Omeprazole 40 mg PO DAILY #60 capsule. 10/23/16 [Rx] Calcium/Magnesium/Zinc [Akotrax-Jbibnpwvm-Nnoq Tablet] 1 each PO DAILY 07/27/17 [History] Cyanocobalamin (Vitamin B-12) [Vitamin B-12] 2,000 mcg PO DAILY 07/27/17 [ History] Ergocalciferol [Vitamin D2 (DRISDOL)] 50,000 unit PO FR 07/27/17 [History] Cyclobenzaprine [Flexeril] 10 mg PO HS 04/26/18 [History] traMADol HCL [Ultram] 50 mg PO Q6HR PRN 06/20/18 [History] Gabapentin [Neurontin] 800 mg PO QID 07/10/18 [History] Levothyroxine Sodium [Synthroid] 112 mcg PO DAILY 07/10/18 [History] Lubiprostone [Amitiza] 24 mg PO DAILY 07/10/18 [History] [place]-3 Fatty Acids [[place]-3] 1,000 mg PO DAILY 07/10/18 [History] Oxybutynin Chloride [Oxybutynin Chloride ER] 10 mg PO DAILY 07/10/18 [History] Warfarin Sodium [Coumadin] 10 mg PO SUMOWEFR 07/10/18 [History] Warfarin [Coumadin] 12.5 mg PO TUTHSA 07/10/18 [History] metFORMIN HCL 500 mg PO DAILY 07/10/18 [History] Follow up Appointment(s)/Referral(s): Floresita Gonzalez DO [Primary Care Provider] - 1-2 days Activity/Diet/Wound Care/Special Instructions: Patient to take 12.5 of Coumadin tonight due to subtherapeutic INR at 1.8
--- NOTE | 2018-07-11 14:59 | ECHOS ---
STRESS ECHOCARDIOGRAM INDICATIONS: [place] MEDICATIONS: Lipitor, nitro as needed. BASELINE HEART RATE: 74 BASELINE BLOOD PRESSURE: 121/73 MAXIMUM HEART RATE: 144 MAXIMUM BLOOD PRESSURE: 134/65 85% MPHR: 137 100% MPHR: 161 MAXIMUM STAGE REACHED: 2 TOTAL EXERCISE TIME: 6:00 CLINICAL INFORMATION: Baseline rhythm is sinus mechanism rate 74, normal axis and intervals, nonspecific ST-T wave changes. Baseline blood pressure 121/73 mmHg. Patient received infusion of dobutamine per protocol, peak rate of 144 beats per minute which is equal to 89% maximum predicted heart rate. Peak blood pressure 134/65 mmHg. Electrocardiograph monitoring revealed occasional PVCs. There was no evidence of diagnostic ischemic ST deviation. FINDINGS: Baseline echocardiogram revealed normal wall motion. At peak exercise, there was normal wall motion augmentation with no hypokinesis or dyskinesis. CONCLUSION: 1. Normal EKG response to dobutamine with occasional premature ventricular contractions. 2. Normal stress echocardiogram with no evidence of stress-induced ischemia. MMODL / IJN: [id number] / MTDD
[2018-07-11] MEDS ORDERED: WARFARIN 10 MG TAB PO SCH (18:00)
[2018-07-12] MEDS ORDERED: WARFARIN 5 MG TAB PO SCH (18:00)
[2018-07-15] MEDS ORDERED: ERGOCALCIFEROL 50,000 UNIT CAP PO SCH (12:00)
== END 2018-07-11 14:32 | disposition home or self-care (01) ==
LOC: EC 09:14 → 1SOBS 10:41
PROVIDERS: ADMIT Internal Medicine; ATTEND Internal Medicine
DX: I20.0 Unstable angina (principal); R00.2 Palpitations; D68.51 Activated protein C resistance; E03.9 Hypothyroidism, unspecified; E78.00 Pure hypercholesterolemia, unspecified; E78.5 Hyperlipidemia, unspecified; K21.9 Gastro-esophageal reflux disease without esophagitis; K58.9 Irritable bowel syndrome, unspecified; E11.42 Type 2 diabetes mellitus with diabetic polyneuropathy; M79.7 Fibromyalgia; Z79.01 Long term (current) use of anticoagulants; Z79.84 Long term (current) use of oral hypoglycemic drugs; Z79.890 Hormone replacement therapy; Z79.899 Other long term (current) drug therapy; Z80.1 Family history of malignant neoplasm of trachea, bronchus and lung; Z80.7 Family history of other malignant neoplasms of lymphoid, hematopoietic and related tissues; Z82.49 Family history of ischemic heart disease and other diseases of the circulatory system; Z86.711 Personal history of pulmonary embolism; Z86.718 Personal history of other venous thrombosis and embolism; Z90.710 Acquired absence of both cervix and uterus
CPT/HCPCS: 96366 ×2; 96376; 96365; 99285; 36415; 94760; 93005; 93306; 93351; 85379; 80061; 80053 ×2; 83735; 84484; 85025 ×2; 85610 ×2; 85730 ×2; 71046; G0378 ×2; J1250; J1644 ×2; S0106 ×2

== ENCOUNTER → 2018-07-18 | Outpatient (CLI) | payer OTHER ==
[2018-07-18 13:45] VITALS: BP 127/76; PULSE 61; RESP 18
--- NOTE | 2018-07-18 14:09 | P.PN ---
Subjective Progress Note Date: 07/18/18 This is a 58-year-old lady with history of lower back pain with radiation to the lower extremities down to the knee level bilaterally with tingling in the right leg. Her pain is worse on the right side with a some weakness in the right leg. She denies any bowel or bladder dysfunction. She has history of factor V Leiden hyper coagulability. She takes Coumadin on a daily basis. She had good results after bilateral sacroiliac joint RFA. The patient gets muscle spasm in the right thigh and left foot. Today, pt denies new-onset weakness, bowel/bladder incontinence, or any other signs or symptoms of cauda equina syndrome. There are no signs of acute intoxication, and no indications of medication diversion or overuse. In addition to above, 13-point review of systems is also negative for chest pain, shortness of breath, changes in vision, changes in hearing, new onset weakness, abdominal pain, diarrhea, extreme fatigue, malaise, fever, skin changes, homicidal or suicidal ideation, or bowel or bladder incontinence. Vital Signs: Reviewed in EMR Gen: AAOx3, NAD HEENT: PERRLA,hearing grossly normal Pulm: resp unlabored,CTA Heart:S1,S2, No Mur Neck: supple, trachea midline Neuro exam of the lower extremities: Decreased muscle strength in the right lower extremity to 4 out of 5 for knee flexion and extension. Decreased right knee flexion compared to the left knee. Straight leg raising test: Caused knee pain Tenderness in the paravertebral musculature: Positive in the lumbar area bilaterally more on the right side than the left side Neuro: CN II-XII grossly intact, Imaging: Reviewed in EMR/chart Assessment: Lumbar spondylosis without myelopathy Sacroiliac joint dysfunction Lumbar radiculopathy on the right side Plan: 1. Explanation: Opioid and psychological risk scores were reviewed. Diagnoses, prognoses, and multiple treatment options including but not limited to physical therapy, interventional therapies, adjuvant medical therapies, narcotic medication therapies, and surgery were discussed with the patient and all questions were answered to the patient's satisfaction. 2. Opioid agreement: Signed with the patient and the patient is warned not to use opioids while driving or before driving and not to combine opioids with benzodiazepines or alcohol. 3. Counseling: The patient was counseled extensively on SMOKING CESSATION, BODY MASS INDEX, EXERCISE. Specifically, the patient was instructed regarding the im portance of smoking cessation, obesity, and exercise in the context of both chronic pain and overall health. 4. Procedures: The patient may benefit from getting lumbar epidural steroid injection in the right paramedian approach in the future if her pain gets worse 5. Consultations: None 6. Investigations: None 7. Medications: The patient prescription for pain medication from her primary care physician 8. Disposition: Return to clinic as needed 9. Maps were reviewed and were appropriate. PQRS measures: 1-Patient's medications are documented in the chart. 2-Tobacco use is negative, counseling given 3-Patient has had a pneumococcal vaccine. 4-Advanced care planning discussed, patient unable to give 5-Opioid contract signed with the patient. 6-Pain positive, follow-up visit or procedure scheduled 7-Patient's blood pressure measured and documented within normal limits. 8-Patient's weight was measured, and body mass index ABOVE the normal limits, and counseling was done. Patient instructed to follow up with PCP. 9-Patient WAS NOT identified as an unhealthy alcohol user. Controlled Substance Measures Is patient prescribed a controlled substance at discharge?: Yes When asked, does pt state using other controlled substances?: No If prescribed controlled substance>3 days was MAPS reviewed?: Yes If Rx opioid, was Start Talking consent form obtained?: Yes If opioid is for acute pain is fill amount 7 days or less?: No Was information provided regarding opioid addiction?: Yes Objective - Vital Signs Vital signs: Vital Signs Temp Pulse 61 07/18/18 13:35 Resp 18 07/18/18 13:35 BP 127/76 07/18/18 13:35 Pulse Ox 96 07/18/18 13:35 Intake & Output 07/17/18 07/18/18 07/18/18 18:59 06:59 18:59 Weight 78.018 kg
== END | disposition home or self-care (01) ==
LOC: PNWHC3 13:03
PROVIDERS: ATTEND Anesthesiology
DX: M47.26 Other spondylosis with radiculopathy, lumbar region (principal); M53.3 Sacrococcygeal disorders, not elsewhere classified; Z98.890 Other specified postprocedural states
CPT/HCPCS: 99211

== ENCOUNTER 2018-12-23 06:55 | Day surgery (SDC) | payer OTHER ==
[2018-12-20 15:04] VITALS: BMI 30.5
[~2018-12-23 06:55] MED LIST changes: +LACTATED RINGERS 1,000 ML IV SCH; -SODIUM CHLORIDE 0.9% 500 ML 500 ML IV SCH
[2018-12-23 07:26] VITALS: RESP 16; TEMP 97.8
[2018-12-23] MEDS ORDERED: ONDANSETRON 4 MG/2 ML VIAL IVP ONE (07:28)
[2018-12-23 07:30] LABS: Glucose,Whole Blood 87 mg/dL (75-99)
[2018-12-23] MEDS ORDERED: PROPOFOL 10 MG/ML 20 ML VIAL IV ONE (07:57)
[2018-12-23] MEDS ORDERED: LIDOCAINE 1% INJ 10MG/ML (20 ML MDV) ONE (07:57)
--- NOTE | 2018-12-23 08:00 | P.GSHP ---
History of Present Illness H&P Date: 12/23/18 Chief Complaint: Screening colonoscopy, GERD This is a 58-year-old female who presents today for EGD and screening colonoscopy. Patient history of GERD. She's had some change in bowel habits with some diarrhea. Past Medical History Past Medical History: Blood Disorder, Chest Pain / Angina, CVA/TIA, Deep Vein Thrombosis (DVT), Fibromyalgia, GERD/Reflux, Hyperlipidemia, Hypertension, Musculoskeletal Disorder, Osteoarthritis (OA), Pulmonary Embolus (PE), Thyroid Disorder Additional Past Medical History / Comment(s): HX CHRONIC BACK PAIN, LISE LEG NEUROPATHY. HX Urinary Incontinence, IBS. BRUISES EASILY D/T RX. BLOOD CLOTTING DISORDER GENE, FACTOR V. HX ENCEPHALOPATHY 2013. History of Any Multi-Drug Resistant Organisms: None Reported Past Surgical History: Breast Surgery, Cholecystectomy, Hysterectomy, Orthopedic Surgery Additional Past Surgical History / Comment(s): Breast reduction, LISE WRIST CARPAL TUNNEL, LEFT WRIST SX TO REPAIR TENDONS/LIGAMENTS, RT Rotator cuff repair; LISE CATARACTS, RT KNEE MENISCUS REPAIR. HAS HAD SPINAL EPIDURALS, ABLATIONS. COLONOSCOPY, EGD. Past Anesthesia/Blood Transfusion Reactions: Family History of Problems w/ Anesthesia, Motion Sickness, Postoperative Nausea & Vomiting (PONV) Additional Past Anesthesia/Blood Transfusion Reaction / Comment(s): No problems with prior blood transfusion. SILVIA HAS PONV. Smoking Status: Never smoker - Past Family History Brother(s) Family Medical History: Cancer, Congestive Heart Failure (CHF), Coronary Artery Disease (CAD), Myocardial Infarction ([place]) Additional Family Medical History / Comment(s): lymphoma, lung CA Medications and Allergies Home Medications Medication Instructions Recorded Confirmed Type Atorvastatin Calcium [Lipitor] 40 mg PO HS 09/24/13 12/23/18 History Dicyclomine [Bentyl] 20 mg PO DAILY 09/24/13 12/23/18 History Loratadine 10 mg PO DAILY 09/24/13 12/23/18 History Nitroglycerin Sl Tabs [Nitrostat] 0.4 mg PO DIRECTED PRN 09/24/13 12/23/18 History buPROPion SR [Wellbutrin SR] 150 mg PO BID 09/24/13 12/23/18 History Omeprazole 40 mg PO DAILY #60 capsule. 10/23/16 12/23/18 Rx Calcium/Magnesium/Zinc 1 each PO DAILY 07/27/17 12/23/18 History [Pbacbxl-Kunergbje-Uzpa Tablet] Cyanocobalamin (Vitamin B-12) 2,000 mcg PO DAILY 07/27/17 12/23/18 History [Vitamin B-12] Ergocalciferol [Vitamin D2 50,000 unit PO FR 07/27/17 12/23/18 History (DRISDOL)] Cyclobenzaprine [Flexeril] 10 mg PO BID PRN 04/26/18 12/23/18 History traMADol HCL [Ultram] 50 mg PO Q6HR PRN 06/20/18 12/23/18 History Gabapentin [Neurontin] 800 mg PO QID 07/10/18 12/23/18 History Levothyroxine Sodium [Synthroid] 112 mcg PO DAILY 07/10/18 12/23/18 History [place]-3 Fatty Acids [[place]-3] 1,000 mg PO DAILY 07/10/18 12/23/18 History Oxybutynin Chloride [Oxybutynin 10 mg PO DAILY 07/10/18 12/23/18 History Chloride ER] Warfarin Sodium [Coumadin] 12.5 mg PO SUMOWEFR 07/10/18 12/20/18 History Warfarin [Coumadin] 12.5 mg PO TUTHSA 07/10/18 12/23/18 History metFORMIN HCL 500 mg PO DAILY 07/10/18 12/23/18 History Alendronate Sodium [Fosamax] 5 mg PO DAILY 07/18/18 12/20/18 History Allergies Allergy/AdvReac Type Severity Reaction Status Date / Time Iodinated Contrast- Oral and Allergy Rash/Hives, Verified 12/23/18 07:19 IV Dye swelling,it [Iodinated Contrast Media - tiffanie Oral and] iodine Allergy Rash/Hives, Verified 12/23/18 07:19 swelling,it tiffanie latex Allergy Swelling,it Verified 12/23/18 07:19 tiffanie,hives pregabalin [From Lyrica] Allergy AFFECTED Verified 12/23/18 07:19 VISION Surgical - Exam Vital Signs Temp Pulse Resp BP Pulse Ox 97.8 F 64 16 125/69 99 12/23/18 07:25 12/23/18 07:25 12/23/18 07:25 12/23/18 07:25 12/23/18 07:25 - General well developed, well nourished, no distress - Eyes PERRL - ENT normal pinna - Neck no masses - Respiratory normal expansion - Cardiovascular Rhythm: regular - Abdomen Abdomen: soft, non tender Assessment and Plan Assessment: GERD, screening colonoscopy. We'll perform EGD and screening colonoscopy.
[2018-12-23 08:48] VITALS: BP 110/77; PULSE 60
--- NOTE | 2018-12-23 09:41 | P.OP ---
Date of Procedure: 12/23/18 Preoperative Diagnosis: GERD Screening colonoscopy Postoperative Diagnosis: Antral gastritis Mild diverticulosis Internal/external hemorrhoids Procedure(s) Performed: EGD Colonoscopy Anesthesia: MAC Surgeon: Pablo Rivera Pathology: other (Antrum) Condition: stable Disposition: PACU Description of Procedure: Patient's placed on the endoscopy table in the lateral position. She received IV sedation. The gastroscope placed oropharynx and passed in the esophagus and into the stomach. Scope was then placed through the pylorus. The first and second portion of duodenum appeared normal. Scope was then brought back the antrum and this appeared mildly inflamed. A biopsies performed. The scope was then retroflexed and the remainder of the stomach appeared normal. There was no significant hiatal hernia. The GE junction was at 40 cm. The distal esophagus appeared normal. The proximal esophagus. No. The scope was withdrawn. Next digital rectal exam was performed which revealed a few internal and external hemorrhoids. The possible colonoscope was then placed patient anus and passed throughout the entire colon. The ileocecal valve sutures. The cecum and ascending colon appeared normal. In the transverse and descending; was a few scattered diverticula. There is known to diverticulitis. The scope was then brought back the rectum and this appeared normal. Scope was then withdrawn through the anus and internal/external hemorrhoids were noted. Scope was withdrawn for patient.
== END 2018-12-23 09:17 | disposition home or self-care (01) ==
LOC: ORWHC2ENDO 06:55
PROVIDERS: ATTEND Surgery
DX: K29.50 Unspecified chronic gastritis without bleeding (principal); K57.90 Diverticulosis of intestine, part unspecified, without perforation or abscess without bleeding; K64.4 Residual hemorrhoidal skin tags; K57.32 Diverticulitis of large intestine without perforation or abscess without bleeding; I10 Essential (primary) hypertension; E78.5 Hyperlipidemia, unspecified; K21.9 Gastro-esophageal reflux disease without esophagitis; M79.7 Fibromyalgia; M19.90 Unspecified osteoarthritis, unspecified site; E07.9 Disorder of thyroid, unspecified; E11.42 Type 2 diabetes mellitus with diabetic polyneuropathy; D68.51 Activated protein C resistance; Z86.73 Personal history of transient ischemic attack (TIA), and cerebral infarction without residual deficits; F32.9 Major depressive disorder, single episode, unspecified; G89.29 Other chronic pain; M54.9 Dorsalgia, unspecified; Z86.718 Personal history of other venous thrombosis and embolism; Z86.711 Personal history of pulmonary embolism; Z90.710 Acquired absence of both cervix and uterus; Z90.49 Acquired absence of other specified parts of digestive tract; Z98.42 Cataract extraction status, left eye; Z98.41 Cataract extraction status, right eye; Z80.1 Family history of malignant neoplasm of trachea, bronchus and lung; Z80.7 Family history of other malignant neoplasms of lymphoid, hematopoietic and related tissues; Z82.49 Family history of ischemic heart disease and other diseases of the circulatory system; Z79.01 Long term (current) use of anticoagulants; Z79.84 Long term (current) use of oral hypoglycemic drugs; Z79.890 Hormone replacement therapy; Z79.891 Long term (current) use of opiate analgesic; Z79.899 Other long term (current) drug therapy; Z91.041 Radiographic dye allergy status; Z91.040 Latex allergy status; Z88.8 Allergy status to other drugs, medicaments and biological substances; Z91.048 Other nonmedicinal substance allergy status
CPT/HCPCS: 88305; 45378; 43239; J2405; J2001; J2704

== ENCOUNTER → 2019-01-12 | Outpatient (CLI) | payer OTHER ==
--- NOTE | 2019-01-12 13:48 | MM ---
Reason for exam: additional evaluation requested from prior study. Last mammogram was performed 1 year and 7 months ago. History: Patient is postmenopausal. Family history of breast cancer in maternal aunt and breast cancer in maternal cousin at age 48. 2000. Took hormonal contraceptives for 15 years beginning at age 17. Physical Findings: Nurse did not find any significant physical abnormalities on exam. MG Diagnostic Mammo w CAD LISE Bilateral CC and MLO view(s) were taken. Prior study comparison: June 21, 2017, bilateral MG diagnostic mammo w CAD LISE. October 29, 2016, bilateral MG diagnostic mammo w CAD LISE. There are scattered fibroglandular densities. No suspicious abnormality. There is a stable 2mm mass of the right upper outer quadrant at middle depth. These results were verbally communicated with the patient and result sheet given to the patient on 01/12/19. ASSESSMENT: Benign, BI-RAD 2 RECOMMENDATION: Routine screening mammogram of both breasts in 6 months. Back on schedule for June 2019.
== END | disposition home or self-care (01) ==
LOC: RADMAMWWP 12:31
PROVIDERS: ATTEND Family Medicine
DX: R92.8 Other abnormal and inconclusive findings on diagnostic imaging of breast (principal); Z80.3 Family history of malignant neoplasm of breast
CPT/HCPCS: 77066

== ENCOUNTER 2019-07-25 06:04 | Day surgery (SDC) | payer OTHER ==
[2019-07-21 14:39] VITALS: BMI 32.3
--- NOTE | 2019-07-24 16:41 | P.HPOB ---
History of Present Illness H&P Date: 07/24/19 Chief Complaint: Vaginal pain: Vaginal lesion Izabella is a 59-year-old female with vaginal pain and a vaginal lesion at approximately 6 to 7:00 that is very tender and vaginal biopsies recommended. This is the precise site where she has pain with intercourse so hopefully this will also relieved that abdomen dermatology. Symptoms have been on for a number of months and have severely limited her capacity to live a normal life and have normal sexual relations. Her physical exam reveals an obese female whose HEENT is unremarkable. Heart regular, lungs clear, extremities without pain. Abdomen is soft and nontender. I'll sounds are noted. Vaginal exam as above. She does have a history of a hysterectomy. Assessment vaginal pain aunts vaginal lesion. Plan excisional biopsy. Past Medical History Past Medical History: Blood Disorder, Chest Pain / Angina, CVA/TIA, Deep Vein Thrombosis (DVT), Fibromyalgia, Hyperlipidemia, Hypertension, Pneumonia, Pulmonary Embolus (PE), Thyroid Disorder Additional Past Medical History / Comment(s): HX CHRONIC BACK PAIN, LISE LEG NEUROPATHY(rt leg worse),sciatica. HX Urinary Incontinence/bladder spasms, IBS. BRUISES EASILY, BLOOD CLOTTING DISORDER GENE- FACTOR V. HX ENCEPHALOPATHY 2013. migraines, recent bronchitis(tx and now resolved), varicose veins, environmental allergies, hx ulcers, hx anemia, TIA x 2-no residual effects History of Any Multi-Drug Resistant Organisms: None Reported Past Surgical History: Breast Surgery, Cholecystectomy, Heart Catheterization, Hysterectomy, Orthopedic Surgery, Tonsillectomy Additional Past Surgical History / Comment(s): Breast reduction, LISE WRIST CARPAL TUNNEL, LEFT WRIST SX TO REPAIR TENDONS/LIGAMENTS, RT shoulder Rotator cuff repair; "surgery lise eyes for pressure", RT KNEE MENISCUS REPAIR. Past Anesthesia/Blood Transfusion Reactions: Family History of Problems w/ Anesthesia, Motion Sickness, Postoperative Nausea & Vomiting (PONV) Additional Past Anesthesia/Blood Transfusion Reaction / Comment(s): No problems with prior blood transfusion. DAUGHTER HAS PONV. Smoking Status: Never smoker - Past Family History Brother(s) Family Medical History: Cancer, Myocardial Infarction ([place]) Additional Family Medical History / Comment(s): lymphoma, lung CA Medications and Allergies Home Medications Medication Instructions Recorded Confirmed Type RX: Atorvastatin Calcium [Lipitor] 40 mg PO HS 09/24/13 07/21/19 History RX: Dicyclomine [Bentyl] 20 mg PO DAILY PRN 09/24/13 07/21/19 History RX: Nitroglycerin Sl Tabs 0.4 mg PO DIRECTED PRN 09/24/13 07/21/19 History [Nitrostat] RX: buPROPion SR [Wellbutrin SR] 150 mg PO BID 09/24/13 07/21/19 History RX: Calcium/Magnesium/Zinc 1 each PO DAILY 07/27/17 07/21/19 History [Zrkgvct-Ddocimyfm-Ivyy Tablet] RX: Cyanocobalamin (Vitamin B-12) 5,000 mcg PO DAILY 07/27/17 07/21/19 History [Vitamin B-12] RX: Ergocalciferol [Vitamin D2 50,000 unit PO MO 07/27/17 07/21/19 History (DRISDOL)] RX: Cyclobenzaprine [Flexeril] 10 mg PO BID PRN 04/26/18 07/21/19 History RX: traMADol HCL [Ultram] 50 mg PO Q6HR PRN 06/20/18 07/21/19 History RX: Gabapentin [Neurontin] 800 mg PO TID 07/10/18 07/21/19 History RX: [place]-3 Fatty Acids [[place]-3] 1,000 mg PO DAILY 07/10/18 07/21/19 History RX: Oxybutynin Chloride 10 mg PO DAILY 07/10/18 07/21/19 History [Oxybutynin Chloride ER] Alendronate Sodium [Fosamax] 5 mg PO DAILY 07/18/18 07/21/19 History Albuterol Sulfate [Proair Hfa] 1 - 2 puff INHALATION Q6HR PRN 07/21/19 07/21/19 History Ibuprofen [Motrin] 800 mg PO TID PRN 07/21/19 07/21/19 History RX: Cetirizine HCl 10 mg PO DAILY 07/21/19 07/21/19 History RX: Levothyroxine Sodium 125 mcg PO DAILY 07/21/19 07/21/19 History RX: Omeprazole 40 mg PO DAILY PRN 07/21/19 07/21/19 History Warfarin Sodium [Coumadin] 12 mg PO 1800 07/21/19 07/21/19 History Allergies Allergy/AdvReac Type Severity Reaction Status Date / Time Iodinated Contrast Media Allergy Rash/Hives, Verified 07/21/19 14:13 [Iodinated Contrast Media - swelling,it Oral and] tiffanie iodine Allergy Rash/Hives, Verified 07/21/19 14:13 swelling,it tiffanie latex Allergy Swelling,it Verified 07/21/19 14:13 tiffanie,hives pregabalin [From Lyrica] Allergy AFFECTED Verified 07/21/19 14:13 VISION Exam Osteopathic Statement: *. No significant issues noted on an osteopathic structural exam other than those noted in the History and Physical/Consult.
[~2019-07-25 06:04] MED LIST changes: +DEXAMETHASONE SOD PHOSPHATE 10 MG/ML 1 ML VIAL IV ONE; +HYDROmorphone 0.5 MG/0.5 ML SYRINGE IVP PRN; +MIDAZOLAM 2 MG/2 ML VIAL IV PRN; +ONDANSETRON 4 MG/2 ML VIAL IVP ONE; +Pre Op ABX Message 1 EACH MISC MISCELLANE ONE; +SCOPOLAMINE 1.5MG/72HR PATCH TRANSDERM ONE
[2019-07-25] MEDS ORDERED: LIDOCAINE 1% (10MG/ML) FOR IV START INTRADERMA ONE (06:37)
[2019-07-25] MEDS ORDERED: MIDAZOLAM 2 MG/2 ML VIAL ONE (07:41)
[2019-07-25] MEDS ORDERED: SUCCINYLCHOLINE CHLORIDE 100 MG/5 ML SYR IV ONE (07:41)
[2019-07-25] MEDS ORDERED: LIDOCAINE 1% INJ 10MG/ML (20 ML MDV) ONE (07:41)
[2019-07-25] MEDS ORDERED: fentaNYL (PF) 50 MCG/ML 2 ML AMP ONE (07:41)
[2019-07-25] MEDS ORDERED: PROPOFOL 10 MG/ML 20 ML VIAL IV ONE (07:41)
[2019-07-25] MEDS ORDERED: BUPIVACAINE (PF) 0.25% 30 ML VIAL MISCELLANE ONE (07:57)
[2019-07-25] MEDS ORDERED: LACTATED RINGERS 1,000 ML IV ONE (08:09)
--- NOTE | 2019-07-25 08:17 | P.OP ---
Date of Procedure: 07/25/19 Preoperative Diagnosis: Vaginal wall lesion and vaginal pain Postoperative Diagnosis: Same Procedure(s) Performed: Excisional biopsy of vaginal wall mass Anesthesia: RUDY Surgeon: Nas Lehman Estimated Blood Loss (ml): 10 Pathology: other (Vaginal wall biopsy) Condition: stable Disposition: same day Operative Findings: Tissue pathology pending Description of Procedure: Izabella was taken to the operating suite and an exam was done with her weeks that I could palpate where the lesion was for certain and she was able to tell me where the pain was at. Once this was accomplished a general anesthetic applied and was found be adequate. She was then prepped and draped in normal sterile fashion and placed in dorsal lithotomy position. Initially an Allis clamp was used to grasp the lesion and quarter percent Marcaine was injected around the lesion. Knife was then used to excise the lesion in total by palpation and was approximately 1 cm x 1 cm x 1 cm deep. Once this was accomplished it was sent to pathology for evaluation and 3-0 Vicryl used to reapproximate the lesion. At the conclusion of the procedure there was no active bleeding coming from the vagina. I did speak with the postoperatively explained there would probably some bleeding as well as wasn't having there was probably what to do, but with her on anticoagulants certainly that risk of her continuing to bleed is there and if that should happen she is to notify our office or report to the emergency room. Plan - Discharge Summary Discharge Rx Participant: No New Discharge Prescriptions: No Action Atorvastatin Calcium [Lipitor] 40 mg PO HS Nitroglycerin Sl Tabs [Nitrostat] 0.4 mg PO DIRECTED PRN PRN Reason: Chest Pain buPROPion SR [Wellbutrin SR] 150 mg PO BID Dicyclomine [Bentyl] 20 mg PO DAILY PRN PRN Reason: IBS Ergocalciferol [Vitamin D2 (DRISDOL)] 50,000 unit PO MO Cyanocobalamin (Vitamin B-12) [Vitamin B-12] 5,000 mcg PO DAILY Calcium/Magnesium/Zinc [Vendgyj-Wpqowdwbk-Qzen Tablet] 1 each PO DAILY Cyclobenzaprine [Flexeril] 10 mg PO BID PRN PRN Reason: Muscle Spasm traMADol HCL [Ultram] 50 mg PO Q6HR PRN PRN Reason: Pain Oxybutynin Chloride [Oxybutynin Chloride ER] 10 mg PO DAILY [place]-3 Fatty Acids [[place]-3] 1,000 mg PO DAILY Gabapentin [Neurontin] 800 mg PO TID Alendronate Sodium [Fosamax] 5 mg PO DAILY Cetirizine HCl 10 mg PO DAILY Levothyroxine Sodium 125 mcg PO DAILY Warfarin Sodium [Coumadin] 12 mg PO 1800 Omeprazole 40 mg PO DAILY PRN PRN Reason: Heartburn Albuterol Sulfate [Proair Hfa] 1 - 2 puff INHALATION Q6HR PRN PRN Reason: Shortness Of Breath Ibuprofen [Motrin] 800 mg PO TID PRN PRN Reason: Pain Discharge Medication List Atorvastatin Calcium [Lipitor] 40 mg PO HS 09/24/13 [History] Dicyclomine [Bentyl] 20 mg PO DAILY PRN 09/24/13 [History] Nitroglycerin Sl Tabs [Nitrostat] 0.4 mg PO DIRECTED PRN 09/24/13 [History] buPROPion SR [Wellbutrin SR] 150 mg PO BID 09/24/13 [History] Calcium/Magnesium/Zinc [Xeketeq-Bfzrcjrvx-Hcgc Tablet] 1 each PO DAILY 07/27/17 [History] Cyanocobalamin (Vitamin B-12) [Vitamin B-12] 5,000 mcg PO DAILY 07/27/17 [History] Ergocalciferol [Vitamin D2 (DRISDOL)] 50,000 unit PO MO 07/27/17 [History] Cyclobenzaprine [Flexeril] 10 mg PO BID PRN 04/26/18 [History] traMADol HCL [Ultram] 50 mg PO Q6HR PRN 06/20/18 [History] Gabapentin [Neurontin] 800 mg PO TID 07/10/18 [History] [place]-3 Fatty Acids [[place]-3] 1,000 mg PO DAILY 07/10/18 [History] Oxybutynin Chloride [Oxybutynin Chloride ER] 10 mg PO DAILY 07/10/18 [History] Alendronate Sodium [Fosamax] 5 mg PO DAILY 07/18/18 [History] Albuterol Sulfate [Proair Hfa] 1 - 2 puff INHALATION Q6HR PRN 07/21/19 [History] Cetirizine HCl 10 mg PO DAILY 07/21/19 [History] Ibuprofen [Motrin] 800 mg PO TID PRN 07/21/19 [History] Levothyroxine Sodium 125 mcg PO DAILY 07/21/19 [History] Omeprazole 40 mg PO DAILY PRN 07/21/19 [History] Warfarin Sodium [Coumadin] 12 mg PO 1800 07/21/19 [History] Follow up Appointment(s)/Referral(s): Nsa Lehman DO [Doctor of Osteopathic Medicine] - 1 Week Activity/Diet/Wound Care/Special Instructions: No heavy lifting, limit stairs and driving, complete pelvic rest if any high temperatures, severe pain, or any heavy bleeding coming from the vagina notify our office or report to the emergency room Discharge Disposition: HOME SELF-CARE
[2019-07-25 08:25] VITALS: TEMP 98
[2019-07-25 08:37] VITALS: RESP 16
[2019-07-25 09:24] LABS: Glucose,Whole Blood 99 mg/dL (75-99)
[2019-07-25] MEDS ORDERED: ONDANSETRON 4 MG/2 ML VIAL IVP ONE (10:04)
[2019-07-25 10:07] VITALS: BP 117/69; PULSE 60
== END 2019-07-25 10:56 | disposition home or self-care (01) ==
LOC: OR 06:04
PROVIDERS: ATTEND Obstetrics & Gynecology
DX: N84.2 Polyp of vagina (principal); K21.9 Gastro-esophageal reflux disease without esophagitis; E03.9 Hypothyroidism, unspecified; E78.5 Hyperlipidemia, unspecified; I10 Essential (primary) hypertension; N32.81 Overactive bladder; D68.51 Activated protein C resistance; M89.49 Other hypertrophic osteoarthropathy, multiple sites; M54.40 Lumbago with sciatica, unspecified side; F63.3 Trichotillomania; Z86.711 Personal history of pulmonary embolism; J30.9 Allergic rhinitis, unspecified; F39 Unspecified mood [affective] disorder; G89.29 Other chronic pain; M54.9 Dorsalgia, unspecified; M79.606 Pain in leg, unspecified; G62.9 Polyneuropathy, unspecified; K58.9 Irritable bowel syndrome, unspecified; G43.909 Migraine, unspecified, not intractable, without status migrainosus; Z86.73 Personal history of transient ischemic attack (TIA), and cerebral infarction without residual deficits; Z86.718 Personal history of other venous thrombosis and embolism; Z90.49 Acquired absence of other specified parts of digestive tract; Z90.710 Acquired absence of both cervix and uterus; Z98.890 Other specified postprocedural states; Z80.1 Family history of malignant neoplasm of trachea, bronchus and lung; Z80.7 Family history of other malignant neoplasms of lymphoid, hematopoietic and related tissues; Z82.49 Family history of ischemic heart disease and other diseases of the circulatory system; Z79.01 Long term (current) use of anticoagulants; Z79.1 Long term (current) use of non-steroidal anti-inflammatories (NSAID); Z79.890 Hormone replacement therapy; Z79.899 Other long term (current) drug therapy; Z79.891 Long term (current) use of opiate analgesic; Z91.041 Radiographic dye allergy status; Z91.040 Latex allergy status; Z88.8 Allergy status to other drugs, medicaments and biological substances; Z91.048 Other nonmedicinal substance allergy status
CPT/HCPCS: 88305; 88342; 88341; 57135; J2250; J1100; J2405; J2001; J3010; J0330; J2704

== ENCOUNTER → 2020-08-28 | Outpatient (CLI) | payer OTHER ==
--- NOTE | 2020-08-28 12:38 | US ---
EXAMINATION TYPE: US thyroid st tissue head/neck DATE OF EXAM: 08/28/2020 COMPARISON: NONE CLINICAL HISTORY: R22.1 Neck swelling. Patient states having palpable lesions on neck x few month. F amily hx of cancer in lymph nodes per patient. Patient has had both doses of Covid vaccine, with las t shot August 25. Bilateral neck scanned. Lymph nodes seen. Largest measured. Right- 1.5 x 0.8 x 0.7 cm Left- 1.7 x 1.3 x 0.7 cm IMPRESSION: Mildly prominent lymph nodes. Correlate clinically.
== END | disposition home or self-care (01) ==
LOC: RADUSWWP 11:59
PROVIDERS: ATTEND Otolaryngology Plastic Surgery within the Head & Neck
DX: R22.1 Localized swelling, mass and lump, neck (principal)
CPT/HCPCS: 76536

== ENCOUNTER 2020-11-29 14:28 | Emergency (ER) | payer OTHER ==
[2020-11-29 14:43] VITALS: BP 127/86; PULSE 83; RESP 18; TEMP 98
[2020-11-29] MEDS ORDERED: HYDROcodone/APAP 5-325MG 1 EACH TAB PO STA (15:07)
[2020-11-29] MEDS ORDERED: IBUPROFEN 600 MG TAB PO STA (15:07)
--- NOTE | 2020-11-29 15:14 | ED ---
Upper Extremity HPI - General Chief Complaint: Extremity Injury, Upper Stated Complaint: Fall, R Arm Pain Source: patient, RN/MD Mode of arrival: ambulatory Limitations: no limitations - History of Present Illness Initial Comments: 1-year-old white female, alert and oriented 4, presents to the emergency room with complaints of falling off of a chair in the home trying to get something off the china cabinet. Patient states that she was getting ready to stepdown and just lost her balance and the chair tipped. she fell on an outstretched right hand. She is complaining of right wrist pain but also has some right shoulder pain. Patient states that she does have chronic right shoulder pain with surgery in the past she is not sure if she aggravated that or there is a new injury. Patient did not hit her head, denies loss of consciousness. She has no other injuries. MD Complaint: Injury to:: right, shoulder, wrist -: hour(s) (2) Place: home Severity scale (1-10): 10 Improves With: immobilization Worsens With: movement of extremity Context: fall Associated Symptoms: denies other symptoms - Related Data Home Medications Medication Instructions Recorded Confirmed Atorvastatin Calcium [Lipitor] 40 mg PO HS 09/24/13 07/25/19 Dicyclomine [Bentyl] 20 mg PO DAILY PRN 09/24/13 07/25/19 Nitroglycerin Sl Tabs [Nitrostat] 0.4 mg PO DIRECTED PRN 09/24/13 07/25/19 buPROPion SR [Wellbutrin SR] 150 mg PO BID 09/24/13 07/25/19 Calcium/Magnesium/Zinc 1 each PO DAILY 07/27/17 07/25/19 [Dktzrlv-Xbdukuryo-Shjx Tablet] Cyanocobalamin (Vitamin B-12) 5,000 mcg PO DAILY 07/27/17 07/25/19 [Vitamin B-12] Ergocalciferol [Vitamin D2 50,000 unit PO MO 07/27/17 07/25/19 (DRISDOL)] Cyclobenzaprine [Flexeril] 10 mg PO BID PRN 04/26/18 07/25/19 traMADol HCL [Ultram] 50 mg PO Q6HR PRN 06/20/18 07/25/19 Gabapentin [Neurontin] 800 mg PO TID 03/03/19 03/17/20 [place]-3 Fatty Acids [[place]-3] 1,000 mg PO DAILY 07/10/18 07/25/19 Oxybutynin Chloride [Oxybutynin 10 mg PO DAILY 07/10/18 07/25/19 Chloride ER] Alendronate Sodium [Fosamax] 5 mg PO DAILY 07/18/18 07/25/19 Albuterol Sulfate [Proair Hfa] 1 - 2 puff INHALATION Q6HR PRN 07/21/19 07/25/19 Cetirizine HCl 10 mg PO DAILY 07/21/19 07/25/19 Ibuprofen [Motrin] 800 mg PO TID PRN 07/21/19 07/25/19 Levothyroxine Sodium 125 mcg PO DAILY 07/21/19 07/25/19 Omeprazole 40 mg PO DAILY PRN 07/21/19 07/25/19 Warfarin Sodium [Coumadin] 12 mg PO 1800 07/21/19 07/25/19 Allergies Allergy/AdvReac Type Severity Reaction Status Date / Time Iodinated Contrast Media Allergy Rash/Hives, Verified 11/29/20 14:37 [Iodinated Contrast Media - swelling,it Oral and] tiffanie iodine Allergy Rash/Hives, Verified 11/29/20 14:37 swelling,it tiffanie latex Allergy Swelling,it Verified 11/29/20 14:37 tiffanie,hives pregabalin [From Lyrica] Allergy AFFECTED Verified 11/29/20 14:37 VISION Review of Systems ROS Statement: Those systems with pertinent positive or pertinent negative responses have been documented in the HPI. ROS Other: All systems not noted in ROS Statement are negative. Past Medical History Past Medical History: Blood Disorder, Chest Pain / Angina, CVA/TIA, Deep Vein Thrombosis (DVT), Fibromyalgia, Hyperlipidemia, Hypertension, Pneumonia, Pulmonary Embolus (PE), Thyroid Disorder Additional Past Medical History / Comment(s): HX CHRONIC BACK PAIN, LISE LEG NEUROPATHY(rt leg worse),sciatica. HX Urinary Incontinence/bladder spasms, IBS. BRUISES EASILY, BLOOD CLOTTING DISORDER GENE- FACTOR V. HX ENCEPHALOPATHY 2013. migraines, recent bronchitis(tx and now resolved), varicose veins, environmental allergies, hx ulcers, hx anemia, TIA x 2-no residual effects History of Any Multi-Drug Resistant Organisms: None Reported Past Surgical History: Breast Surgery, Cholecystectomy, Heart Catheterization, Hysterectomy, Orthopedic Surgery, Tonsillectomy Additional Past Surgical History / Comment(s): Breast reduction, LISE WRIST CARPAL TUNNEL, LEFT WRIST SX TO REPAIR TENDONS/LIGAMENTS, RT shoulder Rotator cuff repair; "surgery lise eyes for pressure", RT KNEE MENISCUS REPAIR. Past Anesthesia/Blood Transfusion Reactions: Family History of Problems w/ Anesthesia, Motion Sickness, Postoperative Nausea & Vomiting (PONV) Additional Past Anesthesia/Blood Transfusion Reaction / Comment(s): No problems with prior blood transfusion. DAUGHTER HAS PONV. Past Psychological History: No Psychological Hx Reported Smoking Status: Never smoker Past Alcohol Use History: Occasional Past Drug Use History: None Reported - Past Family History Brother(s) Family Medical History: Cancer, Myocardial Infarction ([place]) Additional Family Medical History / Comment(s): lymphoma, lung [place] General Exam Limitations: no limitations General appearance: alert, in no apparent distress Head exam: Present: atraumatic, normocephalic, normal inspection Eye exam: Present: normal appearance, PERRL, EOMI. Absent: scleral icterus, conjunctival injection, periorbital swelling Pupils: Present: normal accommodation ENT exam: Present: normal exam, normal oropharynx, mucous membranes moist Neck exam: Present: normal inspection, full ROM. Absent: tenderness, meningismus, lymphadenopathy, thyromegaly Respiratory exam: Present: normal lung sounds bilaterally. Absent: respiratory distress, wheezes, rales, rhonchi, stridor, chest wall tenderness, accessory muscle use, decreased breath sounds Cardiovascular Exam: Present: regular rate, normal rhythm, normal heart sounds. Absent: systolic murmur, diastolic murmur, rubs, gallop, clicks GI/Abdominal exam: Present: soft, normal bowel sounds. Absent: distended, tenderness, guarding, rebound, rigid Extremities exam: Present: normal capillary refill. Absent: pedal edema, calf tenderness Right Shoulder Exam: Present: tenderness. Absent: laceration, ecchymosis, deformity, crepitus, erythema Upper Arm exam: Present: normal inspection, full ROM Elbow exam: Absent: tenderness, swelling, abrasion, laceration, ecchymosis, deformity, crepitus, dislocation Forearm Wrist exam: Present: tenderness, swelling. Absent: full ROM, abrasion, laceration, ecchymosis Hand Wrist exam: Absent: tenderness, swelling, laceration, ecchymosis Neuro motor exam: Present: thumb IP flexion intact, thumb adduction intact (Minimally due to pain). Absent: wrist extension intact Vascular: Present: normal capillary refill, radial pulse Back exam: Present: full ROM. Absent: tenderness Neurological exam: Present: alert, oriented X3, CN II-XII intact Psychiatric exam: Present: normal affect, normal mood. Absent: depressed, flat affect Skin exam: Present: warm, dry, intact, normal color. Absent: rash, cyanosis, diaphoretic, erythema, petechiae, pallor, mottled Course Vital Signs 11/29/20 14:37 Temperature 98 F Pulse Rate 83 Respiratory 18 Rate Blood Pressure 127/86 O2 Sat by Pulse 97 Oximetry Procedures - Orthopedic Splinting/Casting Injury #1 Side: right Upper Extremity Injury Location: short arm Upper Extremity Immobilizer: synthetic pre-padded splint Medical Decision Making - Medical Decision Making X-ray of the right shoulder without evidence of fracture or dislocation. X-ray of the right forearm and wrist shows a transverse fracture of the distal metaphyseal radius with soft tissue swelling. Patient placed in a short arm posterior mold. She'll be referred to [facility] for continuation of care. Directed to ice, cold compresses and elevate at home. Patient states she has Motrin at home and does not need a prescription. Pt offered a sling and she declined. Case discussed with Dr. Stout Disposition Clinical Impression: Radial fracture Disposition: HOME SELF-CARE Condition: Good Instructions (If sedation given, give patient instructions): Wrist Fracture in Adults (ED) Additional Instructions: Rest, ice, elevate and wear splint until seen by orthopedics. Take Motrin every 8 hours for pain and swelling. FollowUp with orthopedics next week. Return to the emergency room with worsening pain, numbness or tingling. Is patient prescribed a controlled substance at d/c from ED?: No Referrals: Floresita Gonzalez DO [Primary Care Provider] - 1-2 days Dinh Young DO [Doctor of Osteopathic Medicine] - 1-2 days Time of Disposition: 16:48
--- NOTE | 2020-11-29 15:59 | XR ---
EXAMINATION TYPE: XR shoulder complete RT DATE OF EXAM: 11/29/2020 COMPARISON: NONE HISTORY: Pain TECHNIQUE: Shoulder examined in 3 views FINDINGS: The humeral head articulates with the glenoid. The acromio-clavicular junction is normal. No acute fractures or dislocations are evident. A follow up study can be performed 7-10 days from acute trauma for continued pain. IMPRESSION: 1. Normal three-view right Shoulder
--- NOTE | 2020-11-29 16:00 | XR ---
EXAMINATION TYPE: XR forearm RT DATE OF EXAM: 11/29/2020 COMPARISON: None HISTORY: Fall, pain TECHNIQUE: 2 view right forearm FINDINGS: There is a transverse fracture through the distal metaphyseal radius. No additional fractur es are identified. Soft tissue swelling is over the fracture site. Radius aligns normally with the hu merus. IMPRESSION: 1. Transverse fracture distal metaphyseal radius.
--- NOTE | 2020-11-29 16:02 | XR ---
EXAMINATION TYPE: XR wrist complete RT DATE OF EXAM: 11/29/2020 COMPARISON: None HISTORY: Fall on arm TECHNIQUE: Two-view right wrist FINDINGS: There is a transverse fracture of the distal metaphyseal radius. No additional fractures are evident. Soft tissue swelling is over the fracture site. Note is made of a foreshortened fifth metacarpal. There may be a secondary ossification adjacent to the trapezium at the carpal metacarpal junction of the thumb. IMPRESSION: 1. Transverse metaphyseal distal radial fracture. 2. Soft tissue swelling
--- NOTE | 2020-11-29 16:03 | XR ---
EXAMINATION TYPE: XR cervical spine limited DATE OF EXAM: 11/29/2020 COMPARISON: None HISTORY: Fall, pain lump after fall TECHNIQUE: 3 view cervical spine FINDINGS: Disc space narrowing is present C4-5 C6-7. Remaining discs are preserved in height. There i s some kyphosis at C6-7 level. The posterior spinal lamellar line is intact. Prevertebral space is no rmal. Facet degenerative changes are present. The odontoid is limited with overlying maxilla. Vertebr al body heights appear preserved. IMPRESSION: 1. Degenerative disc changes C4-5 and C6-7. 2. No acute osseous abnormality is evident.
== END 2020-11-29 17:04 | disposition home or self-care (01) ==
LOC: EC 14:28
DX: S59.201A Unspecified physeal fracture of lower end of radius, right arm, initial encounter for closed fracture (principal); I10 Essential (primary) hypertension; E78.5 Hyperlipidemia, unspecified; M79.7 Fibromyalgia; Z86.711 Personal history of pulmonary embolism; Z86.718 Personal history of other venous thrombosis and embolism; Z86.73 Personal history of transient ischemic attack (TIA), and cerebral infarction without residual deficits; Z82.49 Family history of ischemic heart disease and other diseases of the circulatory system; Z79.01 Long term (current) use of anticoagulants; Z79.890 Hormone replacement therapy; Z79.899 Other long term (current) drug therapy; W07.XXXA Fall from chair, initial encounter; Y92.009 Unspecified place in unspecified non-institutional (private) residence as the place of occurrence of the external cause
CPT/HCPCS: 72040; 99284

== ENCOUNTER 2021-01-27 12:14 | Emergency (ER) | payer OTHER ==
[2021-01-27 12:51] VITALS: BP 132/91; PULSE 75; RESP 18; TEMP 98.3
--- NOTE | 2021-01-27 12:52 | ED ---
Lower Extremity Injury HPI - General Source: patient, RN notes reviewed Mode of arrival: ambulatory Limitations: no limitations <Ever Childress - Last Filed: 01/27/21 12:49> <Anali Pizano - Last Filed: 01/27/21 16:02> - General Chief Complaint: Extremity Injury, Lower Stated Complaint: leg pain Time Seen by Provider: 01/27/21 12:40 - History of Present Illness Initial Comments: This a 60-year-old female presents emergency Department with chief complaint of right calf Pain. She states this has been approximately one week. Patient states she denies any trauma. 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 Patient is currently on Coumadin. Patient states her last PT/INR was 1 month ago. Patient denies any chest pain or shortness of breath. (Ever Childress) - Related Data Home Medications Medication Instructions Recorded Confirmed Atorvastatin Calcium [Lipitor] 40 mg PO HS 09/24/13 07/25/19 Dicyclomine [Bentyl] 20 mg PO DAILY PRN 09/24/13 07/25/19 Nitroglycerin Sl Tabs [Nitrostat] 0.4 mg PO DIRECTED PRN 09/24/13 07/25/19 buPROPion SR [Wellbutrin SR] 150 mg PO BID 09/24/13 07/25/19 Calcium/Magnesium/Zinc 1 each PO DAILY 07/27/17 07/25/19 [Wxaardv-Ppsqejakt-Zred Tablet] Cyanocobalamin (Vitamin B-12) 5,000 mcg PO DAILY 07/27/17 07/25/19 [Vitamin B-12] Ergocalciferol [Vitamin D2 50,000 unit PO MO 07/27/17 07/25/19 (DRISDOL)] Cyclobenzaprine [Flexeril] 10 mg PO BID PRN 04/26/18 07/25/19 traMADol HCL [Ultram] 50 mg PO Q6HR PRN 06/20/18 07/25/19 Gabapentin [Neurontin] 800 mg PO TID 07/10/18 07/25/19 [place]-3 Fatty Acids [[place]-3] 1,000 mg PO DAILY 07/10/18 07/25/19 Oxybutynin Chloride [Oxybutynin 10 mg PO DAILY 07/10/18 07/25/19 Chloride ER] Alendronate Sodium [Fosamax] 5 mg PO DAILY 07/18/18 07/25/19 Albuterol Sulfate [Proair Hfa] 1 - 2 puff INHALATION Q6HR PRN 07/21/19 07/25/19 Cetirizine HCl 10 mg PO DAILY 07/21/19 07/25/19 Ibuprofen [Motrin] 800 mg PO TID PRN 07/21/19 07/25/19 Levothyroxine Sodium 125 mcg PO DAILY 07/21/19 07/25/19 Omeprazole 40 mg PO DAILY PRN 07/21/19 07/25/19 Warfarin Sodium [Coumadin] 12 mg PO 1800 07/21/19 07/25/19 Allergies Allergy/AdvReac Type Severity Reaction Status Date / Time Iodinated Contrast Media Allergy Rash/Hives, Verified 01/27/21 12:48 [Iodinated Contrast Media - swelling,it Oral and] tiffanie iodine Allergy Rash/Hives, Verified 01/27/21 12:48 swelling,it tiffanie latex Allergy Swelling,it Verified 01/27/21 12:48 tiffanie,hives pregabalin [From Lyrica] Allergy AFFECTED Verified 01/27/21 12:48 VISION Review of Systems ROS Other: All systems not noted in ROS Statement are negative. <Ever Childress - Last Filed: 01/27/21 12:49> ROS Other: All systems not noted in ROS Statement are negative. <Anali Pizano - Last Filed: 01/27/21 16:02> ROS Statement: Those systems with pertinent positive or pertinent negative responses have been documented in the HPI. Past Medical History Past Medical History: Blood Disorder, Chest Pain / Angina, CVA/TIA, Deep Vein Thrombosis (DVT), Fibromyalgia, Hyperlipidemia, Hypertension, Pneumonia, Pulmonary Embolus (PE), Thyroid Disorder Additional Past Medical History / Comment(s): HX CHRONIC BACK PAIN, LISE LEG NEUROPATHY(rt leg worse),sciatica. HX Urinary Incontinence/bladder spasms, IBS. BRUISES EASILY, BLOOD CLOTTING DISORDER GENE- FACTOR V. HX ENCEPHALOPATHY 2013. migraines, recent bronchitis(tx and now resolved), varicose veins, environmental allergies, hx ulcers, hx anemia, TIA x 2-no residual effects History of Any Multi-Drug Resistant Organisms: None Reported Past Surgical History: Breast Surgery, Cholecystectomy, Heart Catheterization, Hysterectomy, Orthopedic Surgery, Tonsillectomy Additional Past Surgical History / Comment(s): Breast reduction, LISE WRIST CARPAL TUNNEL, LEFT WRIST SX TO REPAIR TENDONS/LIGAMENTS, RT shoulder Rotator cuff repair; "surgery lise eyes for pressure", RT KNEE MENISCUS REPAIR. Past Anesthesia/Blood Transfusion Reactions: Family History of Problems w/ Anesthesia, Motion Sickness, Postoperative Nausea & Vomiting (PONV) Additional Past Anesthesia/Blood Transfusion Reaction / Comment(s): No problems with prior blood transfusion. DAUGHTER HAS PONV. Past Psychological History: No Psychological Hx Reported Smoking Status: Never smoker Past Alcohol Use History: Occasional Past Drug Use History: None Reported - Past Family History Brother(s) Family Medical History: Cancer, Myocardial Infarction ([place]) Additional Family Medical History / Comment(s): lymphoma, lung CA <Ever Childress - Last Filed: 01/27/21 12:49> Course Vital Signs 01/27/21 12:49 Temperature 98.3 F Pulse Rate 75 Respiratory 18 Rate Blood Pressure 132/91 O2 Sat by Pulse 97 Oximetry Medical Decision Making <Anali Pizano - Last Filed: 01/27/21 16:02> - Medical Decision Making Patient is a 60-year-old female here for right calf pain times one week. No apparent injury. Patient left AMA before seeing a provider and before results. (Anali Pizano) - Lab Data Lab Results 01/27/21 Range/Units 14:01 PT 13.4 H (9.0-12.0) sec INR 1.3 H (<1.2) Disposition <Ever Childress - Last Filed: 01/27/21 12:49> Time of Disposition: 16:02 <Anali Pizano - Last Filed: 01/27/21 16:02> Clinical Impression: Right calf pain Disposition: Left Against Medical Advice Referrals: Floresita Gonzalez DO [Primary Care Provider] - 1-2 days
--- NOTE | 2021-01-27 14:33 | US ---
EXAMINATION TYPE: US venous doppler duplex LE RT DATE OF EXAM: 01/27/2021 1:53 PM COMPARISON: NONE CLINICAL HISTORY: 60-year-old female pain in right leg. Hx of DVT and PE. Patient on coumadin. SIDE PERFORMED: Right TECHNIQUE: The lower extremity deep venous system is examined utilizing real time linear array sonog gurvinder with graded compression, doppler sonography and color-flow sonography. FINDINGS: VESSELS IMAGED: Common Femoral Vein Deep Femoral Vein Greater Saphenous Vein * Femoral Vein Popliteal Vein Small Saphenous Vein * Proximal Calf Veins (* superficial vessels) Right Leg: Internal echoes seen within one of the paired intramuscular veins just superficial to the lower popliteal vessels. This vein does not appear to compress. Possible single gastrocnemius vein thrombus. IMPRESSION: 1. Paired gastrocnemius veins, one of which appears occluded and thrombosed. This would be compatible with distal DVT. 2. No other DVT seen within the right lower extremity imaged from the groin to the upper calf.
[2021-01-27 14:38] LABS: INR 1.3 (<1.2); Prothrombin Time 13.4 sec (9.0-12.0)
== END 2021-01-27 15:15 | disposition left against medical advice (07) ==
LOC: EC 12:14
DX: M79.604 Pain in right leg (principal); Z86.73 Personal history of transient ischemic attack (TIA), and cerebral infarction without residual deficits; M79.7 Fibromyalgia; I10 Essential (primary) hypertension; E78.5 Hyperlipidemia, unspecified; E07.9 Disorder of thyroid, unspecified; Z86.718 Personal history of other venous thrombosis and embolism; Z79.890 Hormone replacement therapy; Z86.711 Personal history of pulmonary embolism; Z79.899 Other long term (current) drug therapy; Z91.040 Latex allergy status; Z88.8 Allergy status to other drugs, medicaments and biological substances
CPT/HCPCS: 36415; 85610; 99284

== ENCOUNTER → 2021-05-30 | Outpatient (CLI) | payer OTHER ==
--- NOTE | 2021-05-31 02:45 | MR ---
EXAMINATION TYPE: MR wrist RT wo con DATE OF EXAM: 05/30/2021 COMPARISON: None HISTORY: R wrist pain Multiplanar multiecho imaging of the right wrist without contrast. There is narrowing of the radiocarpal joint space. There is mild edema in the distal ulna and also in the lunate. There is linear defect through the triangular cartilage. Flexor tendons appear intact. S caphoid is intact. There is severe narrowing and spur formation and subchondral cystic changes on bot h sides of the first carpometacarpal joint. There is small area of edema measuring 5 mm in the trapez oid. There is spurring at the distal radioulnar joint. There is some mild soft tissue edema around th e distal ulna. IMPRESSION: Osteoarthritic changes as above seen mainly at the first carpometacarpal joint and at the distal radi al carpal joint. There is tear of the triangular cartilage with moderate soft tissue edema around the distal ulna and edema within the distal ulna.
== END | disposition home or self-care (01) ==
LOC: RADMRIMAIN 11:11
PROVIDERS: ATTEND Orthopaedic Surgery Hand Surgery
DX: M18.9 Osteoarthritis of first carpometacarpal joint, unspecified (principal); M19.09 Primary osteoarthritis, other specified site; S63.501A Unspecified sprain of right wrist, initial encounter; X58.XXXA Exposure to other specified factors, initial encounter

== ENCOUNTER 2021-12-18 09:33 | Day surgery (SDC) | payer OTHER ==
[2021-12-17 10:23] VITALS: BMI 31.1
[~2021-12-18 09:33] MED LIST changes: -DEXAMETHASONE SOD PHOSPHATE 10 MG/ML 1 ML VIAL IV ONE; -HYDROmorphone 0.5 MG/0.5 ML SYRINGE IVP PRN; +LIDOCAINE 1% (10MG/ML) FOR IV START INTRADERMA PRN; -MIDAZOLAM 2 MG/2 ML VIAL IV PRN; -ONDANSETRON 4 MG/2 ML VIAL IVP ONE; -Pre Op ABX Message 1 EACH MISC MISCELLANE ONE; -SCOPOLAMINE 1.5MG/72HR PATCH TRANSDERM ONE
[2021-12-18 10:13] VITALS: RESP 18; TEMP 98.6
[2021-12-18] MEDS ORDERED: LIDOCAINE 2% INJ 20 MG/ML (2 ML VIAL) ONE (10:39)
[2021-12-18] MEDS ORDERED: diphenhydrAMINE 50 MG/ML 1 ML VIAL ONE (10:39)
[2021-12-18] MEDS ORDERED: PROPOFOL 10 MG/ML 20 ML VIAL IV ONE (10:39)
[2021-12-18] MEDS ORDERED: ONDANSETRON 4 MG/2 ML VIAL ONE (10:39)
--- NOTE | 2021-12-18 10:47 | P.GSHP ---
History of Present Illness H&P Date: 12/18/21 Chief Complaint: History of colon polyps This a 61-year-old female who presents today for colonoscopy. She has a history of colon polyps. Past Medical History Past Medical History: Blood Disorder, Chest Pain / Angina, CVA/TIA, Deep Vein Thrombosis (DVT), Fibromyalgia, Hearing Disorder / Deafness, Hyperlipidemia, Hypertension, Neurologic Disorder, Osteoarthritis (OA), Pneumonia, Pulmonary Embolus (PE), Thyroid Disorder Additional Past Medical History / Comment(s): Recent rectal bleeding X2 months. HX CHRONIC BACK PAIN, BILATERAL LEG NEUROPATHY(right leg worse), sciatica. Urinary incontinence/bladder spasms. IBS. 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 HX ENCEPHALOPATHY 2013. Migraines. Hx bronchitis. Varicose veins. Environmental allergies. Hx ulcers, hx anemia. Hx TIA X2, no residual effects. Hypertension resolved. Muscle weakness. Hard of hearing. History of Any Multi-Drug Resistant Organisms: None Reported Past Surgical History: Breast Surgery, Cholecystectomy, Heart Catheterization, Hysterectomy, Orthopedic Surgery, Tonsillectomy Additional Past Surgical History / Comment(s): Breast reduction, BILATERAL WRIST CARPAL TUNNEL SURGERY, LEFT WRIST SURGERY TO REPAIR TENDONS/LIGAMENTS, right shoulder rotator cuff repair, "surgery bilateral eyes for pressure", RIGHT KNEE MENISCUS REPAIR. Past Anesthesia/Blood Transfusion Reactions: Motion Sickness, Postoperative Nausea & Vomiting (PONV) Additional Past Anesthesia/Blood Transfusion Reaction / Comment(s): No problems with prior blood transfusion. Slow to wake up. Daughter PONV and slow to wake up. Past Psychological History: No Psychological Hx Reported Smoking Status: Never smoker Past Alcohol Use History: Rare Past Drug Use History: None Reported - Past Family History Brother(s) Family Medical History: Cancer, Myocardial Infarction ([place]) Additional Family Medical History / Comment(s): One brother had lymphoma, lung cancer. Other Brother - cancer in neck. Medications and Allergies Home Medications Medication Instructions Recorded Confirmed Type Atorvastatin Calcium [Lipitor] 40 mg PO HS 09/24/13 12/18/21 History Dicyclomine [Bentyl] 20 mg PO DAILY PRN 09/24/13 12/18/21 History Nitroglycerin Sl Tabs [Nitrostat] 0.4 mg PO DIRECTED PRN 09/24/13 12/18/21 History buPROPion SR [Wellbutrin SR] 150 mg PO BID 09/24/13 12/18/21 History Cyanocobalamin (Vitamin B-12) 5,000 mcg PO DAILY 07/27/17 12/18/21 History [Vitamin B-12] Ergocalciferol [Vitamin D2 50,000 unit PO MO 07/27/17 12/18/21 History (DRISDOL)] Cyclobenzaprine [Flexeril] 10 mg PO BID PRN 04/26/18 12/18/21 History traMADol HCL [Ultram] 50 mg PO Q6HR PRN 06/20/18 12/18/21 History Gabapentin [Neurontin] 800 mg PO TID 07/10/18 12/18/21 History [place]-3 Fatty Acids [[place]-3] 1,000 mg PO DAILY 07/10/18 12/18/21 History Oxybutynin Chloride [Oxybutynin 10 mg PO DAILY 07/10/18 12/18/21 History Chloride ER] Albuterol Sulfate [Proair Hfa] 1 - 2 puff INHALATION Q6HR PRN 07/21/19 12/18/21 History Cetirizine HCl 10 mg PO DAILY 07/21/19 12/18/21 History Ibuprofen [Motrin] 800 mg PO TID PRN 07/21/19 12/18/21 History Levothyroxine Sodium 125 mcg PO QAM 07/21/19 12/18/21 History Omeprazole 40 mg PO DAILY PRN 07/21/19 12/18/21 History Rivaroxaban [Xarelto] 20 mg PO DAILY 12/17/21 12/18/21 History Allergies Allergy/AdvReac Type Severity Reaction Status Date / Time Iodinated Contrast Media Allergy Rash/Hives, Verified 12/18/21 10:07 [Iodinated Contrast Media - swelling,it Oral and] tiffanie iodine Allergy Rash/Hives, Verified 12/18/21 10:07 swelling,it tiffanie latex Allergy Swelling,it Verified 12/18/21 10:07 tiffanie,hives pregabalin [From Lyrica] Allergy AFFECTED Verified 12/18/21 10:07 [facility] - Exam Vital Signs Temp Pulse Resp BP Pulse Ox 98.6 F 75 18 108/65 98 12/18/21 10:11 12/18/21 10:11 12/18/21 10:11 12/18/21 10:11 12/18/21 10:11 - General well developed, well nourished, no distress - Eyes PERRL - ENT normal pinna - Neck no masses - Respiratory normal expansion - Cardiovascular Rhythm: regular - Abdomen Abdomen: soft, non tender Assessment and Plan Assessment: History of colon polyps. We'll perform colonoscopy.
--- NOTE | 2021-12-18 10:57 | P.OP ---
Date of Procedure: 12/18/21 Preoperative Diagnosis: History of colon polyps Postoperative Diagnosis: Hemorrhoids No polyps visualized Procedure(s) Performed: Colonoscopy Anesthesia: MAC Surgeon: Pablo Rivera Pathology: none sent Condition: stable Disposition: PACU Description of Procedure: The patient's placed on the endoscopy table in the lateral position. She received IV sedation. Digital rectal exam was performed. This revealed a few external hemorrhoids. The flexible colonoscope was then placed patient anus and passed throughout the entire colon the ileocecal valve was visually is. The cecum, ascending and transverse colon appeared normal. The descending and sigmoid colon appeared normal. Scope summer back the rectum and this appeared normal. There were no polyps seen throughout the colon. Patient did have external hemorrhoids.
[2021-12-18 11:01] VITALS: PULSE 63
[2021-12-18 11:12] VITALS: BP 116/69
== END 2021-12-18 11:20 | disposition home or self-care (01) ==
LOC: ORWHC2ENDO 09:33
PROVIDERS: ATTEND Surgery
DX: K64.4 Residual hemorrhoidal skin tags (principal); Z86.010 Personal history of colon polyps; E78.5 Hyperlipidemia, unspecified; K21.9 Gastro-esophageal reflux disease without esophagitis; F32.A Depression, unspecified; E07.9 Disorder of thyroid, unspecified; Z88.8 Allergy status to other drugs, medicaments and biological substances; Z91.040 Latex allergy status; Z79.890 Hormone replacement therapy; Z79.899 Other long term (current) drug therapy; Z90.49 Acquired absence of other specified parts of digestive tract; Z91.041 Radiographic dye allergy status; Z79.01 Long term (current) use of anticoagulants; Z80.7 Family history of other malignant neoplasms of lymphoid, hematopoietic and related tissues; Z80.1 Family history of malignant neoplasm of trachea, bronchus and lung; Z82.49 Family history of ischemic heart disease and other diseases of the circulatory system
CPT/HCPCS: 45378; J1200; J2405; J2704; J2001

== ENCOUNTER 2021-12-19 11:04 | Emergency (ER) | payer OTHER ==
[2021-12-19 11:21] VITALS: TEMP 98
[2021-12-19] MEDS ORDERED: SODIUM CHLORIDE 0.9% 500 ML 500 ML IV STA (11:48)
[2021-12-19] MEDS ORDERED: DIPH,PERTUS(ACELL)TETVAC-LF 0.5 ML VIAL IM ONE (11:54)
[2021-12-19] MEDS ORDERED: ONDANSETRON 4 MG/2 ML VIAL IVP STA ×2 (11:55→14:32)
[2021-12-19] MEDS ORDERED: HYDROmorphone 0.5 MG/0.5 ML SYRINGE IVP STA ×2 (11:55→13:09)
[2021-12-19 12:15] LABS: Basophils # (A) 0.1 k/uL (0-0.2); Basophils % (A) 1 %; Eosinophils # (A) 0.1 k/uL (0-0.7); Eosinophils % (A) 2 %; HCT 42.4 % (34.0-46.0); HGB 13.9 gm/dL (11.4-16.0); Lymphocytes # (A) 1.3 k/uL (1.0-4.8); Lymphocytes % (A) 23 %; MCH 31.6 pg (25.0-35.0); MCHC 32.8 g/dL (31.0-37.0); MCV 96.4 fL (80.0-100.0); Monocytes # (A) 0.3 k/uL (0-1.0); Monocytes % (A) 5 %; Neutrophils # (A) 3.8 k/uL (1.3-7.7); Neutrophils % (A) 67 %; Platelet Count 188 k/uL (150-450); RDW 13.2 % (11.5-15.5); WBC 5.6 k/uL (3.8-10.6)
[2021-12-19 12:28] LABS: Partial Thromboplastin Time 24.9 sec (22.0-30.0)
[2021-12-19 12:31] LABS: ALT 18 U/L (4-34); AST 24 U/L (14-36); African American GFR (CKD) >90 (>60 ml/min/1.73 sqM); Albumin 4.3 g/dL (3.5-5.0); Alkaline Phosphatase 54 U/L (38-126); Anion Gap 10 mmol/L; Blood Urea Nitrogen 11 mg/dL (7-17); Calcium 9.3 mg/dL (8.4-10.2); Carbon Dioxide 24 mmol/L (22-30); Chloride 106 mmol/L (98-107); Glucose 100 mg/dL (74-99); Magnesium 2.1 mg/dL (1.6-2.3); Non-African American GFR(CKD) 82 (>60 ml/min/1.73 sqM); Potassium 3.7 mmol/L (3.5-5.1); Sodium 140 mmol/L (137-145); Total Bilirubin 0.9 mg/dL (0.2-1.3); Total Protein 7.2 g/dL (6.3-8.2)
--- NOTE | 2021-12-19 12:32 | ED ---
General Adult HPI <Marquez Bojorquez - Last Filed: 12/19/21 15:11> - General Source: patient, RN notes reviewed Mode of arrival: ambulatory Limitations: no limitations <Ever Childress - Last Filed: 12/19/21 15:37> - General Chief complaint: Syncope Stated complaint: syncope, head/wrist injury Time Seen by Provider: 12/19/21 11:30 - History of Present Illness Initial comments: 61-year-old female presents emergency Department chief complaint of passing out episode. Patient states that she bent over to grab something came very dizzy and she woke up on the ground. Patient did strike her head she has some swelling or for had small superficial laceration she is unsure when her last tetanus was. She does complain of right knee pain, left wrist pain. Denies any neck pain no neck stiffness of back pain. Patient states she's never had a past episode though she's been having multiple dizzy spells of recent in which she did discuss this with her primary care physician. Patient does admit she had a colonoscopy yesterday did have decreased oral intake because of this. (Ever Childress) - Related Data Home Medications Medication Instructions Recorded Confirmed Atorvastatin Calcium [Lipitor] 40 mg PO HS 09/24/13 12/19/21 Dicyclomine [Bentyl] 20 mg PO DAILY PRN 09/24/13 12/19/21 Nitroglycerin Sl Tabs [Nitrostat] 0.4 mg PO Q5M PRN 09/24/13 12/19/21 buPROPion SR [Wellbutrin SR] 150 mg PO BID 09/24/13 12/19/21 Cyanocobalamin (Vitamin B-12) 5,000 mcg PO DAILY 07/27/17 12/19/21 [Vitamin B-12] Ergocalciferol [Vitamin D2 50,000 unit PO MO 07/27/17 12/19/21 (DRISDOL)] Cyclobenzaprine [Flexeril] 10 mg PO BID PRN 04/26/18 12/19/21 traMADol HCL [Ultram] 50 mg PO Q6HR PRN 06/20/18 12/19/21 Gabapentin [Neurontin] 800 mg PO TID 07/10/18 12/19/21 [place]-3 Fatty Acids [[place]-3] 1,000 mg PO DAILY 07/10/18 12/19/21 Oxybutynin Chloride [Oxybutynin 10 mg PO DAILY 07/10/18 12/19/21 Chloride ER] Albuterol Sulfate [Proair Hfa] 1 - 2 puff INHALATION Q6HR PRN 07/21/19 12/19/21 Cetirizine HCl 10 mg PO DAILY 07/21/19 12/19/21 Levothyroxine Sodium 125 mcg PO DAILY 07/21/19 12/19/21 Omeprazole 40 mg PO DAILY PRN 07/21/19 12/19/21 Rivaroxaban [Xarelto] 20 mg PO DAILY 12/17/21 12/19/21 Ibuprofen [Motrin] 600 mg PO Q8H PRN 12/19/21 12/19/21 Allergies Allergy/AdvReac Type Severity Reaction Status Date / Time Iodinated Contrast Media Allergy Rash/Hives, Verified 12/19/21 12:02 [Iodinated Contrast Media - swelling,it Oral and] tiffanie iodine Allergy Rash/Hives, Verified 12/19/21 12:02 swelling,it tiffanie latex Allergy Swelling,it Verified 12/19/21 12:02 tiffanie,hives pregabalin [From Lyrica] Allergy AFFECTED Verified 12/19/21 12:02 [facility]ISION Review of Systems ROS Other: All systems not noted in ROS Statement are negative. <Marquez Bojorquez - Last Filed: 12/19/21 15:11> ROS Other: All systems not noted in ROS Statement are negative. <Ever Childress - Last Filed: 12/19/21 15:37> ROS Statement: Those systems with pertinent positive or pertinent negative responses have been documented in the HPI. Past Medical History Past Medical History: Blood Disorder, Chest Pain / Angina, CVA/TIA, Deep Vein Thrombosis (DVT), Fibromyalgia, Hearing Disorder / Deafness, Hyperlipidemia, Hypertension, Neurologic Disorder, Osteoarthritis (OA), Pneumonia, Pulmonary Embolus (PE), Thyroid Disorder Additional Past Medical History / Comment(s): Recent rectal bleeding X2 months. HX CHRONIC BACK PAIN, BILATERAL LEG NEUROPATHY(right leg worse), sciatica. Urinary incontinence/bladder spasms. IBS. 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 HX ENCEPHALOPATHY 2013. Migraines. Hx bronchitis. Varicose veins. Environmental allergies. Hx ulcers, hx anemia. Hx TIA X2, no residual effects. Hypertension resolved. Muscle weakness. Hard of hearing. History of Any Multi-Drug Resistant Organisms: None Reported Past Surgical History: Breast Surgery, Cholecystectomy, Heart Catheterization, Hysterectomy, Orthopedic Surgery, Tonsillectomy Additional Past Surgical History / Comment(s): Breast reduction, BILATERAL WRIST CARPAL TUNNEL SURGERY, LEFT WRIST SURGERY TO REPAIR TENDONS/LIGAMENTS, right shoulder rotator cuff repair, "surgery bilateral eyes for pressure", RIGHT KNEE MENISCUS REPAIR. Past Anesthesia/Blood Transfusion Reactions: Motion Sickness, Postoperative Nausea & Vomiting (PONV) Additional Past Anesthesia/Blood Transfusion Reaction / Comment(s): No problems with prior blood transfusion. Slow to wake up. Daughter PONV and slow to wake up. Past Psychological History: No Psychological Hx Reported Smoking Status: Never smoker Past Alcohol Use History: Rare Past Drug Use History: None Reported - Past Family History Brother(s) Family Medical History: Cancer, Myocardial Infarction ([place]) Additional Family Medical History / Comment(s): One brother had lymphoma, lung cancer. Other Brother - cancer in neck. <Ever Childress - Last Filed: 12/19/21 15:37> General Exam Limitations: no limitations General appearance: alert, in no apparent distress Head exam: Present: atraumatic, normocephalic. Absent: normal inspection (For head swelling, ecchymosis small superficial abrasion) Eye exam: Present: normal appearance, PERRL, EOMI. Absent: scleral icterus, conjunctival injection, periorbital swelling ENT exam: Present: normal exam, normal oropharynx, mucous membranes moist Neck exam: Present: normal inspection, full ROM. Absent: tenderness, me ningismus, lymphadenopathy Respiratory exam: Present: normal lung sounds bilaterally. Absent: respiratory distress, wheezes, rales, rhonchi, stridor Cardiovascular Exam: Present: normal rhythm, tachycardia, normal heart sounds. Absent: systolic murmur, diastolic murmur, rubs, gallop, clicks GI/Abdominal exam: Present: soft, normal bowel sounds. Absent: distended, tenderness, guarding, rebound, rigid Extremities exam: Present: other (Right knee full range of motion neurovascular intact mild diffuse tenderness, bilateral lower extremity equal pulses, left wrist obvious deformity Refill less than 2 seconds) Neurological exam: Present: alert, oriented X3, CN II-XII intact, reflexes normal. Absent: motor sensory deficit Skin exam: Present: warm, dry, intact, normal color. Absent: rash <Ever Childress - Last Filed: 12/19/21 15:37> Course Vital Signs 12/19/21 12/19/21 12/19/21 11:19 14:00 14:53 Temperature 98 F Pulse Rate 121 H 86 73 Respiratory 24 20 18 Rate Blood Pressure 124/84 119/62 124/63 O2 Sat by Pulse 96 95 98 Oximetry 12/19/21 12/19/21 12/19/21 15:00 15:05 15:12 Temperature Pulse Rate 58 L 64 57 L Respiratory 9 L 9 L 10 L Rate Blood Pressure 84/37 152/80 142/84 O2 Sat by Pulse 94 L 96 Oximetry 12/19/21 15:15 Temperature Pulse Rate 61 Respiratory 12 Rate Blood Pressure 126/82 O2 Sat by Pulse 100 Oximetry Procedures - Procedural Sedation Procedural Sedation Start Time: 14:52 Procedural Sedation Stop Time: 15:20 Indications: fracture/dislocation reduction Mallampati Airway Score: 2 Preparation: voicer applied, pulse oximeter, capnometry used, supplemental O2 applied IV Propofol Dose (mgs): 80 Complications: none Patient Tolerated Procedure: well <Marquez Bojorquez - Last Filed: 12/19/21 15:11> - Orthopedic Fracture Reduction Fracture #1 Consent Obtained: written consent Side: left Fracture Reduction Location: radius, ulna Analgesia: procedural sedation Technique: direct manipulation, traction/counter-traction Post Reduction X-rays Demonstrate: acceptable reduction Post-Reduction Neuro Exam: intact Post-Reduction Vascular Exam: intact Splint Applied: Yes Patient Tolerated Procedure: well, no complications - Orthopedic Splinting/Casting Injury #1 Side: left Upper Extremity Injury Location: short arm, wrist Upper Extremity Immobilizer: sugar tong splint, synthetic pre-padded splint <Ever Childress - Last Filed: 12/19/21 15:37> Medical Decision Making - Lab Data Result diagrams: 12/19/21 12:01 12/19/21 12:01 <Marquez Bojorquez - Last Filed: 12/19/21 15:11> - Lab Data Result diagrams: 12/19/21 12:01 12/19/21 12:01 <Ever Childress - Last Filed: 12/19/21 15:37> - Medical Decision Making Patient presented emergency from for syncopal episode after leaning over. Patient had recent sedation yesterday for colonoscopy felt dehydrated. Patient was given IV fluids patient had CT of her brain, C-spine which was negative patient noted have angulated distal radius ulna fracture this was reduced with conscious sedation. Sedation performed by Dr. Bojorquez. Patient lab work does not reveal any significant findings otherwise. Patient will be discharged in stable condition with follow-up with orthopedics. (Ever Childress) - Lab Data Lab Results 12/19/21 12/19/21 12/19/21 Range/Units 12:01 12:01 12:01 WBC 5.6 (3.8-10.6) k/uL RBC 4.40 (3.80-5.40) m/uL Hgb 13.9 (11.4-16.0) gm/dL Hct 42.4 (34.0-46.0) % MCV 96.4 (80.0-100.0) fL MCH 31.6 (25.0-35.0) pg MCHC 32.8 (31.0-37.0) g/dL RDW 13.2 (11.5-15.5) % Plt Count 188 (150-450) k/uL MPV 8.0 Neutrophils % 67 % Lymphocytes % 23 % Monocytes % 5 % Eosinophils % 2 % Basophils % 1 % Neutrophils # 3.8 (1.3-7.7) k/uL Lymphocytes # 1.3 (1.0-4.8) k/uL Monocytes # 0.3 (0-1.0) k/uL Eosinophils # 0.1 (0-0.7) k/uL Basophils # 0.1 (0-0.2) k/uL PT 11.0 (9.0-12.0) sec INR 1.0 (<1.2) APTT 24.9 (22.0-30.0) sec Sodium 140 (137-145) mmol/L Potassium 3.7 (3.5-5.1) mmol/L Chloride 106 (98-107) mmol/L Carbon Dioxide 24 (22-30) mmol/L Anion Gap 10 mmol/L BUN 11 (7-17) mg/dL Creatinine 0.78 (0.52-1.04) mg/dL Est GFR (CKD-EPI)AfAm >90 (>60 ml/min/1.73 sqM) Est GFR (CKD-EPI)NonAf 82 (>60 ml/min/1.73 sqM) Glucose 100 H (74-99) mg/dL Calcium 9.3 (8.4-10.2) mg/dL Magnesium 2.1 (1.6-2.3) mg/dL Total Bilirubin 0.9 (0.2-1.3) mg/dL AST 24 (14-36) U/L ALT 18 (4-34) U/L Alkaline Phosphatase 54 (38-126) U/L Troponin I (0.000-0.034) ng/mL Total Protein 7.2 (6.3-8.2) g/dL Albumin 4.3 (3.5-5.0) g/dL 12/19/21 Range/Units 12:01 WBC (3.8-10.6) k/uL RBC (3.80-5.40) m/uL Hgb (11.4-16.0) gm/dL Hct (34.0-46.0) % MCV (80.0-100.0) fL MCH (25.0-35.0) pg MCHC (31.0-37.0) g/dL RDW (11.5-15.5) % Plt Count (150-450) k/uL MPV Neutrophils % % Lymphocytes % % Monocytes % % Eosinophils % % Basophils % % Neutrophils # (1.3-7.7) k/uL Lymphocytes # (1.0-4.8) k/uL Monocytes # (0-1.0) k/uL Eosinophils # (0-0.7) k/uL Basophils # (0-0.2) k/uL PT (9.0-12.0) sec INR (<1.2) APTT (22.0-30.0) sec Sodium (137-145) mmol/L Potassium (3.5-5.1) mmol/L Chloride (98-107) mmol/L Carbon Dioxide (22-30) mmol/L Anion Gap mmol/L BUN (7-17) mg/dL Creatinine (0.52-1.04) mg/dL Est GFR (CKD-EPI)AfAm (>60 ml/min/1.73 sqM) Est GFR (CKD-EPI)NonAf (>60 ml/min/1.73 sqM) Glucose (74-99) mg/dL Calcium (8.4-10.2) mg/dL Magnesium (1.6-2.3) mg/dL Total Bilirubin (0.2-1.3) mg/dL AST (14-36) U/L ALT (4-34) U/L Alkaline Phosphatase (38-126) U/L Troponin I <0.012 (0.000-0.034) ng/mL Total Protein (6.3-8.2) g/dL Albumin (3.5-5.0) g/dL Disposition <Marquez Bojorquez - Last Filed: 12/19/21 15:11> Is patient prescribed a controlled substance at d/c from ED?: No Time of Disposition: 15:37 <Ever Childress - Last Filed: 12/19/21 15:37> Clinical Impression: Closed fracture of left distal radius and ulna, Contusion of head, Contusion of right knee, Syncopal episodes Disposition: HOME SELF-CARE Condition: Stable Instructions (If sedation given, give patient instructions): Moderate Sedation (ED), Arm Fracture in Adults (ED) Additional Instructions: Please return to the Emergency Department if symptoms worsen or any other concerns. Referrals: Floresita Gonzalez DO [Primary Care Provider] - 1-2 days Adriano Brand DO [Doctor of Osteopathic Medicine] - 1-2 days
--- NOTE | 2021-12-19 12:52 | XR ---
EXAMINATION TYPE: XR wrist complete LT DATE OF EXAM: 12/19/2021 COMPARISON: None HISTORY: Fall, pain TECHNIQUE: 3 view left wrist FINDINGS: There is an impacted fracture of the distal radius. This has intra-articular extension. Fra cture is comminuted with 45 degree dorsal angulation. There is avulsion of the ulnar styloid and late ral ulna. Soft tissue swelling is present. If there is pain at the anatomic snuff box, nuclear medicine bone scan could be performed for additio nal evaluation. No additional fractures are evident. Follow-up can be performed as clinically indicat ed. IMPRESSION: 1. Comminuted impacted fracture with dorsal angulation of the distal radius. This has intra-articula r extension. 2. Fracture through the ulnar styloid to the metaphysis of the ulna. 3. Overlying soft tissue swelling
--- NOTE | 2021-12-19 12:53 | XR ---
EXAMINATION TYPE: XR chest 2V DATE OF EXAM: 12/19/2021 COMPARISON: 07/10/2018 INDICATION: Syncope, fall pain in left shoulder TECHNIQUE: Frontal and lateral views of the chest are obtained. FINDINGS: The heart size is normal. The pulmonary vasculature is normal. The lungs are clear. No acute osseous abnormality is evident. No pneumothorax is evident. IMPRESSION: 1. No acute pulmonary process.
--- NOTE | 2021-12-19 12:55 | XR ---
EXAMINATION TYPE: XR knee complete RT DATE OF EXAM: 12/19/2021 COMPARISON: 06/20/2018 HISTORY: Fall, pain TECHNIQUE: 3 view right knee FINDINGS: There is loss of the medial compartment joint space. Medial femoral condylar and tibial paulo teau spurring is present. There is prominent narrowing of the lateral compartment joint space. Latera l tibial plateau spur is present. No acute fractures are evident. Patellofemoral joint space changes are present. No joint effusion is evident. Follow up exams can be performed 7-10 days from acute trauma for continued pain. IMPRESSION: 1. Progression of moderate osteoarthritic degenerative change right knee. 2. No acute osseous abnormality. Follow-up as clinically indicated.
--- NOTE | 2021-12-19 14:09 | CT ---
EXAMINATION TYPE: CT brain duran wo con DATE OF EXAM: 12/19/2021 COMPARISON: None HISTORY: Pain fall while bump right eye CT DLP: 1332.6 mGycm, Automated exposure control for dose reduction was used. CONTRAST: Patient injected with 0 mL of Isovue 300. CT of the brain is performed utilizing 3 mm thick sections through the posterior fossa and 3 mm thick sections through the remaining calvarium. Study is performed within 24 hours of arrival to the hospital. No abnormal hyperdensity is present to suggest an acute intracranial hemorrhage. No mass lesion is evident. Physiologic basal ganglion calcification is present. No acute infarcts are evident. Ventricles and sulci are appropriate for the patient age. Soft tissue swelling is over the right frontal region0 no acute fractures are evident. Paranasal sinuses and mastoid air cells within the [id number] are clear. IMPRESSIONS: 1. No acute intracranial process. Follow-up MRI can be performed as clinically indicated. CT cervical spine. COMPARISON: None CT of the cervical spine is performed in the axial plane at 2 mm thick sections. Reconstructed image s in the coronal, and sagittal plane are reviewed on the computer. No acute fractures are evident. There is cervical kyphosis. There is a retrolisthesis of C4 posterior on C5. There is loss of disc height at C4-5. Some mild diffuse disc space narrowing is present through the c ervical spine. Vertebral body heights are preserved. No spinal canal stenosis is evident. Uncovertebral joint hypertrophy is present C4-5 with severe bilateral foraminal stenosis. IMPRESSIONS: 1. Grade 1 retrolisthesis of C4 on C5. Uncovertebral joint hypertrophy is contributing to bilateral s evere foraminal stenosis at C4-5. 2. Diffuse degenerative disc changes. 3. Cervical kyphosis related to patient positioning or muscle spasm.
[2021-12-19] MEDS ORDERED: PROPOFOL 10 MG/ML 20 ML VIAL IV STA (14:16)
[2021-12-19] MEDS ORDERED: SODIUM CHLORIDE 0.9% 1,000 ML IV STA (14:16)
[2021-12-19] MEDS ORDERED: diphenhydrAMINE 50 MG/ML 1 ML VIAL IVP STA (14:32)
--- NOTE | 2021-12-19 15:40 | XR ---
EXAMINATION TYPE: XR wrist limited LT DATE OF EXAM: 12/19/2021 COMPARISON: Earlier exam HISTORY: Fracture post reduction TECHNIQUE: 2 view left wrist FINDINGS: Comminuted fracture distal radius is again evident. There is improved alignment in position ing from prior exam. The ulnar fractures poorly visualized on this examination. Images were obtained through a fiberglass cast. IMPRESSION: 1. Improved alignment and positioning distal comminuted radial fracture. 2. Ulnar fracture appears near anatomic.
[2021-12-19 15:52] VITALS: BP 135/84; RESP 12
[2021-12-19 16:08] VITALS: PULSE 77
[2021-12-19] MEDS ORDERED: traMADol 50 MG STARTER PACK 3 TAB BTL PO STA (16:10)
== END 2021-12-19 16:53 | disposition home or self-care (01) ==
LOC: EC 11:04
DX: T14.90XA Injury, unspecified, initial encounter (principal); R55 Syncope and collapse
CPT/HCPCS: 93005; 80053; 83735; 84484; 85025; 85610; 85730; 73100; 73110; 73562; 71046; 72125; 70450; 90715; 99285; J1200; J2405; J2704; J1170

== ENCOUNTER → 2022-02-23 | Outpatient (CLI) | payer OTHER ==
--- NOTE | 2022-02-24 04:10 | MR ---
EXAMINATION TYPE: MR lumbar spine wo con DATE OF EXAM: 02/23/2022 COMPARISON: 02/17/2018 HISTORY: Pain into [place] lower extremities, fall Multiplanar multiecho imaging of the lumbar spine with no contrast. The lumbar vertebrae have normal alignment. There is mild narrowing of disc spaces from L2 to L5. The re is mild posterior disc bulging from L2 L5. There is developmentally adequate spinal canal and no s johnathon stenosis. No lumbar paraspinal mass. No compression fracture. The lumbar neural foramina are fa irly well maintained. No focal bone destruction. The visualized sacroiliac joints are intact. IMPRESSION: Mild degenerative disc changes in the lumbar spine as above. No significant overall change compared t o old exam. No spinal stenosis or fracture.
== END | disposition home or self-care (01) ==
LOC: RADMRIMAIN 13:27
PROVIDERS: ATTEND Family Medicine
DX: M51.16 Intervertebral disc disorders with radiculopathy, lumbar region (principal)
CPT/HCPCS: 72148

== ENCOUNTER → 2022-03-26 | Outpatient (CLI) | payer OTHER ==
--- NOTE | 2022-03-27 08:35 | MM ---
Reason for Exam: Screening (asymptomatic). Last mammogram was performed 3 year(s) and 2 month(s) ago. Patient History: Menarche at age 10. First Full-Term at age 16. Right ovary removed at age 37. Hysterectomy at age 37. Postmenopausal. Hormonal Contraceptives for 15 years from age 17 until age 32. 2001, Reduction. Maternal cousin had breast cancer, age 38. Maternal aunt had breast cancer, age 48. Sister had ovarian cancer, age 38. Nephew/Niece had ovarian cancer, age 26. Sister had ovarian cancer, age 28. Risk Values: Lori 5 year model risk: 1.2%. NCI Lifetime model risk: 5.5%. Prior Study Comparison: 10/29/2016 Bilateral Diagnostic Mammogram, [facility]. 06/21/2017 Bilateral Diagnostic Mammogram, [facility]. 01/12/2019 Bilateral Diagnostic Mammogram, [facility]. Tissue Density: There are scattered fibroglandular densities. Findings: Analyzed By CAD. There is no suspicious group of microcalcifications or new suspicious mass in either breast. Overall Assessment: Negative, BI-RAD 1 Management: Screening Mammogram of both breasts in 1 year. A clinical breast exam by your physician is recommended on an annual basis and results should be correlated with mammographic findings. Electronically signed and approved by: Atul Baltazar M.D. Radiologis
== END | disposition home or self-care (01) ==
LOC: RADMAMWWP 15:50
PROVIDERS: ATTEND Family Medicine
DX: Z12.31 Encounter for screening mammogram for malignant neoplasm of breast (principal); Z80.3 Family history of malignant neoplasm of breast; Z78.0 Asymptomatic menopausal state
CPT/HCPCS: 77067

== ENCOUNTER → 2022-04-01 | Outpatient (CLI) | payer OTHER ==
[2022-04-01 08:51] VITALS: BP 123/84; PULSE 79; RESP 18; TEMP 98.1
--- NOTE | 2022-04-01 12:13 | P.PAINCN ---
History of Present Illness - Reason for Consult Consult date: 04/01/22 - History of Present Illness This is 61 years old female with a chronic history of severe low back pain started several years ago, denies any initiating event, pain score seventh localized in the low back area with radiation to the lower extremity bilaterally and it's more prominent on the right side, she has some numbness and tingling sensation in the lower extremity, and also she is having severe low back pain which is increased with any activity and interfere with her quality of life, she tried physical therapy without any benefit she tried massage treatments without any benefit , and she is currently on multiple pain medication with only minimal relief she is currently on ibuprofen 600 mg when necessary and gabapentin 800 mg 3 times a day and [place] 5/325 when necessary, and Flexeril 10 mg twice a day, getting prescription refills from her primary care and she denies any side effect of the medication Past Medical History Past Medical History: Blood Disorder, Chest Pain / Angina, CVA/TIA, Deep Vein Thrombosis (DVT), Fibromyalgia, Hearing Disorder / Deafness, Hyperlipidemia, Hypertension, Neurologic Disorder, Osteoarthritis (OA), Pneumonia, Pulmonary Embolus (PE), Thyroid Disorder Additional Past Medical History / Comment(s): CHRONIC BACK PAIN, BILATERAL LEG NEUROPATHY(right leg worse), sciatica. Urinary incontinence/bladder spasms. IBS. 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 HX ENCEPHALOPATHY 2013. Migraines. Hx bronchitis. Varicose veins. Environmental allergies. Hx ulcers, hx anemia. Hx TIA X2, no residual effects. Hypertension resolved. Muscle weakness. Hard of hearing., hx PE and DVT's- last dvt Jan 2021 right leg., states colonoscopy 12/18/21 showed internal hemorrhoids., pt states day after colonoscopy she fell and was seen in the ER for fx left wrist & concussion-she states abrasion with bump on forehead, bruised right hand and knee and left eye is black & blue., brace on left wrist. History of Any Multi-Drug Resistant Organisms: None Reported Past Surgical History: Breast Surgery, Cholecystectomy, Heart Catheterization, Hysterectomy, Orthopedic Surgery, Tonsillectomy Additional Past Surgical History / Comment(s): Breast reduction, BILATERAL WRIST CARPAL TUNNEL SURGERY, LEFT WRIST SURGERY TO REPAIR TENDONS/LIGAMENTS, right shoulder rotator cuff repair, "surgery bilateral eyes for pressure", RIGHT KNEE MENISCUS REPAIR. Past Anesthesia/Blood Transfusion Reactions: Motion Sickness, Postoperative Nausea & Vomiting (PONV) Additional Past Anesthesia/Blood Transfusion Reaction / Comm: No problems with prior blood transfusion. Slow to wake up. Daughter PONV and slow to wake up. states versed and propafol cause nausea and vomiting. Smoking Status: Never smoker - Past Family History Brother(s) Family Medical History: Cancer, Myocardial Infarction ([place]) Additional Family Medical History / Comment(s): One brother had lymphoma, lung cancer. Other Brother - cancer in neck. Medications and Allergies Home Medications Medication Instructions Recorded Confirmed Type Atorvastatin Calcium [Lipitor] 40 mg PO DAILY 09/24/13 12/24/21 History Dicyclomine [Bentyl] 20 mg PO DAILY PRN 09/24/13 12/24/21 History Nitroglycerin Sl Tabs [Nitrostat] 0.4 mg PO Q5M PRN 09/24/13 12/24/21 History buPROPion SR [Wellbutrin SR] 150 mg PO BID PRN 09/24/13 12/24/21 History Ergocalciferol [Vitamin D2 50,000 unit PO MO 07/27/17 12/24/21 History (DRISDOL)] Cyclobenzaprine [Flexeril] 10 mg PO BID PRN 04/26/18 12/24/21 History traMADol HCL [Ultram] 50 mg PO Q6HR PRN 06/20/18 12/24/21 History Gabapentin [Neurontin] 800 mg PO TID PRN 07/10/18 12/24/21 History Oxybutynin Chloride [Oxybutynin 10 mg PO DAILY 07/10/18 12/24/21 History Chloride ER] Cetirizine HCl 10 mg PO DAILY 07/21/19 12/24/21 History Levothyroxine Sodium 125 mcg PO DAILY 07/21/19 12/24/21 History Rivaroxaban [Xarelto] 20 mg PO HS 12/17/21 12/24/21 History Ibuprofen [Motrin] 600 mg PO DAILY PRN 12/19/21 12/24/21 History HYDROcodone/APAP 5-325MG [[place] 1 tab PO Q6HR PRN 12/24/21 12/24/21 History 5-325] Naproxen Sodium [Aleve] 220 mg PO DIRECTED PRN 12/24/21 12/24/21 History Allergies Allergy/AdvReac Type Severity Reaction Status Date / Time Iodinated Contrast Media Allergy Rash/Hives, Verified 12/25/21 08:40 [Iodinated Contrast Media - swelling,it Oral and] tiffanie iodine Allergy Rash/Hives, Verified 12/25/21 08:40 swelling,it tiffanie latex Allergy Swelling,it Verified 12/25/21 08:40 tiffanie,hives pregabalin [From Lyrica] Allergy affected Verified 12/25/21 08:40 vision midazolam [From Versed] AdvReac Unknown Nausea & Verified 12/25/21 08:40 Vomiting propofol AdvReac Unknown Nausea & Verified 12/25/21 08:40 Vomiting Physical Exam Vitals: Vital Signs Temp Pulse Resp BP Pulse Ox 04/01/22 08:40 98.1 F 79 18 123/84 98 Intake and Output 03/31/22 04/01/22 04/01/22 22:59 06:59 14:59 Other: Weight 81.647 kg Physical Examinations : -Constitutiona : Cooperative , not in acute distress . -HEENT : nech : supple , no Lymphadenopathy , normal thyroid size . : eyes : no ptosis , no icterus, no photophobia . - neurologic : Cranial nerve II to XII intact , no focal neurological deffecit . -psychatric : alert , oriented X 3 , appropriate affect , intact judgment and insight . -Lymphatic : no Lymphadenopathy . - musculoskeltal : Lumber spine moter stegnth lower extremities ,thigh and legs 5/5 Right side , 5/5 Left side deep tendon reflexes : normal Knee Jerk , normal ankle Jerk lumber facet Loading Test =positive Right , positive Left Range of motion of the lumbar spine Flexion 30 degrees, extension 10 degrees strait leg raising test = positive at 30 degree right side and 45 left side Fabere test= positive Right , and positive LT . Sever tenderness over the Sacroiliac joint on the Right , and Left sides Gaenslen test= positive right ,and positive left . Seated flexion test= positive right ,and positive Left . Distraction test= positive bilaterally Sacroiliac compression test= positive bilaterally Results Comments: MRI of the lumbar spine= degenerative disc disease lumbar area Assessment and Plan Plan: Assessment and plan= 1-Lumbar radiculopathy . 2-lumbar degenerative disc disease , 3-lumbar spondylosis with lumbar facet arthropathy .4-bilateral sacroiliitis Patient could benefit from lumbar epidural steroid injection at L5-S1, and we will reevaluate her response to the injection and if she had no benefit and we should consider doing diagnostic medial branch block lumbar area, she should continue her current medication as prescribed by her primary care Time with Patient: Greater than 30 PQRS Measure Charge Sheet Mode of Arrival: Ambulatory - Pain Location Bilateral Lower Back Non-Pharmacological Interventions: Heat, Inactivity, Massage, Physical Therapy, Position/Reposition Pharmacological Interventions: PRN Medication, Scheduled Medication, Topical Medication PQRS Narrative: Smoking Status Never smoker Blood Pressure 123/84 Pain Intensity [Bilateral 3 Lower Back] Scale Used Numeric (1 - 10) Hx Alcohol Use (MH) Yes Home Medications: Ambulatory Orders Atorvastatin Calcium [Lipitor] 40 mg PO DAILY 09/24/13 Dicyclomine [Bentyl] 20 mg PO DAILY PRN 09/24/13 Nitroglycerin Sl Tabs [Nitrostat] 0.4 mg PO Q5M PRN 09/24/13 buPROPion SR [Wellbutrin SR] 150 mg PO BID PRN 09/24/13 Ergocalciferol [Vitamin D2 (DRISDOL)] 50,000 unit PO MO 07/27/17 Cyclobenzaprine [Flexeril] 10 mg PO BID PRN 04/26/18 traMADol HCL [Ultram] 50 mg PO Q6HR PRN 06/20/18 Gabapentin [Neurontin] 800 mg PO TID PRN 07/10/18 Oxybutynin Chloride [Oxybutynin Chloride ER] 10 mg PO DAILY 07/10/18 Cetirizine HCl 10 mg PO DAILY 07/21/19 Levothyroxine Sodium 125 mcg PO DAILY 07/21/19 Rivaroxaban [Xarelto] 20 mg PO HS 12/17/21 Ibuprofen [Motrin] 600 mg PO DAILY PRN 12/19/21 HYDROcodone/APAP 5-325MG [[place] 5-325] 1 tab PO Q6HR PRN 12/24/21 Naproxen Sodium [Aleve] 220 mg PO DIRECTED PRN 12/24/21
== END | disposition home or self-care (01) ==
LOC: PNWHC3 08:12
PROVIDERS: ATTEND Specialist
DX: M51.36 Other intervertebral disc degeneration, lumbar region (principal); M47.896 Other spondylosis, lumbar region; M46.96 Unspecified inflammatory spondylopathy, lumbar region; M54.16 Radiculopathy, lumbar region
CPT/HCPCS: 99211

== ENCOUNTER 2022-06-08 14:10 | Emergency (ER) | payer OTHER ==
[2022-06-08 14:21] VITALS: BP 140/86; PULSE 75; RESP 16; TEMP 98
--- NOTE | 2022-06-08 14:29 | ED ---
Extremity Problem HPI - General Source: patient, RN notes reviewed Mode of arrival: ambulatory Limitations: no limitations <Ever Childress - Last Filed: 06/08/22 14:29> - General Source: patient, RN notes reviewed Mode of arrival: ambulatory Limitations: no limitations - History of Present Illness MD Complaint: extremity pain, extremity swelling <Pari Longoria - Last Filed: 06/09/22 00:27> - General Chief complaint: Extremity Problem,Nontraumatic Stated complaint: R/O Blood Clot,Sent by PCP Time Seen by Provider: 06/08/22 14:23 - History of Present Illness Initial comments: 62-year-old female presents emergency Department chief complaint of left posterior knee pain, swelling. Patient states that she does have a history of DVTs. Patient states she is on Xarelto. Patient states even when she's been on Xarelto she's form DVTs. She states that she was helping move something with her son states that she felt she does injured it but it was more swollen, gets worse throughout the day. Patient was sent here to rule out DVT (Ever Childress) When I went to evaluate the patient, she confirmed the statements listed above. (Pari Longoria) - Related Data Home Medications Medication Instructions Recorded Confirmed Atorvastatin Calcium [Lipitor] 40 mg PO DAILY 09/24/13 05/08/22 Dicyclomine [Bentyl] 20 mg PO DAILY PRN 09/24/13 05/08/22 Nitroglycerin Sl Tabs [Nitrostat] 0.4 mg PO Q5M PRN 09/24/13 05/08/22 buPROPion SR [Wellbutrin SR] 150 mg PO BID PRN 09/24/13 05/08/22 Ergocalciferol [Vitamin D2 50,000 unit PO MO 07/27/17 05/08/22 (DRISDOL)] Cyclobenzaprine [Flexeril] 10 mg PO BID PRN 04/26/18 05/08/22 traMADol HCL [Ultram] 50 mg PO Q6HR PRN 06/20/18 05/08/22 Gabapentin [Neurontin] 800 mg PO TID PRN 07/10/18 05/08/22 Oxybutynin Chloride [Oxybutynin 10 mg PO DAILY 07/10/18 05/08/22 Chloride ER] Cetirizine HCl 10 mg PO DAILY 07/21/19 05/08/22 Levothyroxine Sodium 137 mcg PO DAILY 07/21/19 05/08/22 Rivaroxaban [Xarelto] 20 mg PO HS 12/17/21 05/08/22 Ibuprofen [Motrin] 600 mg PO DAILY PRN 12/19/21 05/08/22 Naproxen Sodium [Aleve] 220 mg PO DIRECTED PRN 12/24/21 05/08/22 Previous Rx's Medication Instructions Recorded HYDROcodone/APAP 5-325MG [[place] 1 tab PO Q6HR PRN 3 Days #12 tab 06/08/22 5-325] Allergies Allergy/AdvReac Type Severity Reaction Status Date / Time Iodinated Contrast Media Allergy Rash/Hives, Verified 05/08/22 10:42 [Iodinated Contrast Media - swelling,it Oral and] tiffanie iodine Allergy Rash/Hives, Verified 05/08/22 10:42 swelling,it tiffanie latex Allergy Swelling,it Verified 05/08/22 10:42 tiffanie,hives pregabalin [From Lyrica] Allergy affected Verified 05/08/22 10:42 vision midazolam [From Versed] AdvReac Unknown Nausea & Verified 05/08/22 10:42 Vomiting propofol AdvReac Unknown Nausea & Verified 05/08/22 10:42 Vomiting Review of Systems ROS Other: All systems not noted in ROS Statement are negative. <Ever Childress - Last Filed: 06/08/22 14:29> ROS Other: All systems not noted in ROS Statement are negative. <Pari Longoria - Last Filed: 06/09/22 00:27> ROS Statement: Those systems with pertinent positive or pertinent negative responses have been documented in the HPI. Past Medical History Past Medical History: Blood Disorder, Chest Pain / Angina, CVA/TIA, Deep Vein Thrombosis (DVT), Fibromyalgia, Hearing Disorder / Deafness, Hyperlipidemia, Hypertension, Neurologic Disorder, Osteoarthritis (OA), Pneumonia, Pulmonary Embolus (PE), Thyroid Disorder Additional Past Medical History / Comment(s): CHRONIC BACK PAIN, BILATERAL LEG NEUROPATHY(right leg worse), sciatica. Urinary incontinence/bladder spasms. IBS. 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 HX ENCEPHALOPATHY 2013. Migraines. Hx bronchitis. Varicose veins. Environmental allergies. Hx ulcers, hx anemia. Hx TIA X2, no residual effects. Hypertension resolved. Muscle weakness. Hard of hearing., hx PE and DVT's- last dvt Jan 2021 right leg., states colonoscopy 12/18/21 showed internal hemorrhoids., pt states day after colonoscopy she fell and was seen in the ER for fx left wrist & concussion-she states abrasion with bump on forehead, bruised right hand and knee and left eye is black & blue., brace on left wrist. History of Any Multi-Drug Resistant Organisms: None Reported Past Surgical History: Breast Surgery, Cholecystectomy, Heart Catheterization, Hysterectomy, Orthopedic Surgery, Tonsillectomy Additional Past Surgical History / Comment(s): Breast reduction, BILATERAL WRIST CARPAL TUNNEL SURGERY, LEFT WRIST SURGERY TO REPAIR TENDONS/LIGAMENTS, right shoulder rotator cuff repair, "surgery bilateral eyes for pressure", RIGHT KNEE MENISCUS REPAIR. Past Anesthesia/Blood Transfusion Reactions: Motion Sickness, Postoperative Nausea & Vomiting (PONV) Additional Past Anesthesia/Blood Transfusion Reaction / Comment(s): No problems with prior blood transfusion. Slow to wake up. Daughter PONV and slow to wake up. states versed and propafol cause nausea and vomiting. Past Psychological History: No Psychological Hx Reported Smoking Status: Never smoker - Past Family History Brother(s) Family Medical History: Cancer, Myocardial Infarction ([place]) Additional Family Medical History / Comment(s): One brother had lymphoma, lung cancer. Other Brother - cancer in neck. <Ever Childress M - Last Filed: 06/08/22 14:29> General Exam Limitations: no limitations <Ever Childress M - Last Filed: 06/08/22 14:29> Limitations: no limitations General appearance: alert, in no apparent distress Head exam: Present: atraumatic, normocephalic, normal inspection Respiratory exam: Present: normal lung sounds bilaterally. Absent: respiratory distress, wheezes, rales, rhonchi, stridor Cardiovascular Exam: Present: regular rate, normal rhythm, normal heart sounds. Absent: systolic murmur, diastolic murmur, rubs, gallop, clicks Neurological exam: Present: alert, oriented X3, CN II-XII intact Psychiatric exam: Present: normal affect, normal mood Skin exam: Present: warm, dry, intact, normal color. Absent: rash <Vogley,Pari - Last Filed: 06/09/22 00:27> Course Vital Signs 06/08/22 14:18 Temperature 98 F Pulse Rate 75 Respiratory 16 Rate Blood Pressure 140/86 O2 Sat by Pulse 98 Oximetry Medical Decision Making - Radiology Data Radiology results: report reviewed, image reviewed <Amos Longoriallian - Last Filed: 06/09/22 00:27> - Medical Decision Making This is a 62-year-old female who presents to the emergency department for left knee pain and swelling. Was pt. sent in by a medical professional or institution? @ -Her PCP Did you speak to anyone other than the patient for history? @ -No Did you review nursing and triage notes? @ -Yes, and I agree, it is accurate with regards to the patient's symptoms. Were old charts reviewed? @ -No Differential Diagnosis? @ -Differential Leg Pain and Swelling Cellullitis, Gout, DVT, PVD, arterial insufficiency, congestive heart failure, compartment syndrome, venous stasis changes, thrombophlebitis, contact dermatitis, necrotizing fasciitis, septic arthritis, this is not meant to be an all-inclusive list. U/S interpreted by me (1pt. min.)? @ -Duplex US of the left lower extremity obtained and my interpretation identifies no evidence of a DVT. What testing was considered but not performed? (CT, X-rays, U/S, labs)? Why? @ -None What meds were considered but not given? Why? @ -None Did you discuss the management of the patient with other professionals? @ -No Did you reconcile home meds? @ -No Was smoking cessation discussed for >3mins.? @ -No Was critical care preformed (if so, how long)? @ -No Were there social determinants of health that impacted care today? How? (Homelessness, low income, unemployed, alcoholism, drug addiction, transportation, low edu. Level, literacy, decrease access to med. care, snf, re hab)? @ -No Was there de-escalation of care discussed even if they declined? (Discuss DNR or withdrawal of care, Hospice)? @ -No What co-morbidities impacted this encounter? (DM, HTN, Smoking, COPD, CAD, Cancer, CVA, Hep., AIDS, mental health diagnosis, sleep apnea, morbid obesity)? @ -None Was patient admitted / discharged? @ -Discharged. Duplex US obtained with findings consistent with a Donis's Cyst and negative for a DVT. Findings discussed with the patient. She is instructed to apply ice to the back of the, keep it wrapped with an Sameer bandage or [id number] knee brace, and keep it elevated. 3 day course of Deport provided, advised to take this sparingly when her pain is most severe and otherwise alternate with ibuprofen and Tylenol. I was willing to prescribe a short course of Deport due to her symptoms not being managed with Ibuprofen and Tylenol alone and because she has an upcoming trip that will require a lot of walking. Undiagnosed new problem with uncertain prognosis? @ -None Drug Therapy requiring intensive monitoring for toxicity (Heparin, Nitro, Insulin, Cardizem)? @ -None Were any procedures done? @ -None Diagnosis/symptom? @ -Donis's Cyst Acute, or Chronic, or Acute on Chronic? @ -Acute Uncomplicated (without systemic symptoms) or Complicated (systemic symptoms)? @ -Uncomplicated Side effects of treatment? @ -None Exacerbation, Progression, or Severe Exacerbation] @ -Not applicable Poses a threat to life or bodily function? @ -No Return precautions reviewed in depth, the patient is instructed to return to the emergency department with any new, worsening, or concerning symptoms. Patient verbalized understanding. This case was discussed in detail with the attending ED physician, Dr. Bojorquez. Presentation, findings, and treatment plan discussed in detail as well. (Pari Longoria) Disposition <Ever Childress - Last Filed: 06/08/22 14:29> Is patient prescribed a controlled substance at d/c from ED?: Yes When asked, does pt state using other controlled substances?: No If prescribed controlled substance>3 days was MAPS reviewed?: Prescribed <3 Days <Pari Longoria - Last Filed: 06/09/22 00:27> Clinical Impression: Synovial cyst of popliteal space [Donis], left knee Disposition: HOME SELF-CARE Instructions (If sedation given, give patient instructions): Donis Cyst (ED) Additional Instructions: Return to the emergency department with any new, worsening, or concerning symptoms. Apply ice to the back of the knee, wrap the leg with an Sameer bandage or use a knee brace, and keep the leg elevated as much as possible. Alternate with ibuprofen and Tylenol for pain relief. Use the Deport sparingly when your pain is the most severe. Contact orthopedics as listed below for a follow-up appointment. Follow up with your primary care provider in 1-2 days. Prescriptions: HYDROcodone/APAP 5-325MG [[place] 5-325] 1 tab PO Q6HR PRN 3 Days #12 tab PRN Reason: Pain Referrals: Floresita Gonzalez DO [Primary Care Provider] - 1-2 days Jason Bond DO [Doctor of Osteopathic Medicine] - 1-2 days
--- NOTE | 2022-06-08 15:40 | US ---
EXAMINATION TYPE: US venous doppler duplex LE LT DATE OF EXAM: 06/08/2022 3:30 PM COMPARISON: US CLINICAL HISTORY: pain swelling left leg. Pain and swelling in the left leg. Hx of DVT in both legs, hx PE. Patient is on Xarelto. SIDE PERFORMED: Left TECHNIQUE: The lower extremity deep venous system is examined utilizing real time linear array sonog gurvinder with graded compression, doppler sonography and color-flow sonography. VESSELS IMAGED: Common Femoral Vein Deep Femoral Vein Greater Saphenous Vein * Femoral Vein Popliteal Vein Small Saphenous Vein * Proximal Calf Veins (* superficial vessels) Left Leg: Complex area seen within left popliteal area: 4.5 x 2.6 x 2.6 cm. No evidence of DVT. IMPRESSION: No ultrasound evidence for acute DVT in the left lower extremity. There is small to mode rate size left-sided popliteal cyst incidentally noted.
== END 2022-06-08 16:20 | disposition home or self-care (01) ==
LOC: EC 14:10
DX: M71.22 Synovial cyst of popliteal space [Baker], left knee (principal); Z86.73 Personal history of transient ischemic attack (TIA), and cerebral infarction without residual deficits; Z86.718 Personal history of other venous thrombosis and embolism; E78.5 Hyperlipidemia, unspecified; I10 Essential (primary) hypertension; M19.90 Unspecified osteoarthritis, unspecified site; E07.9 Disorder of thyroid, unspecified; Z91.040 Latex allergy status; Z88.8 Allergy status to other drugs, medicaments and biological substances; Z91.041 Radiographic dye allergy status; Z79.899 Other long term (current) drug therapy; Z79.890 Hormone replacement therapy; Z79.01 Long term (current) use of anticoagulants
CPT/HCPCS: 99283

== ENCOUNTER 2022-07-19 19:21 | Observation (INO) | payer OTHER ==
[2022-07-19 19:38] LABS: Glucose,Whole Blood 124 mg/dL (70-110)
[2022-07-19] MEDS ORDERED: ONDANSETRON 4 MG/2 ML VIAL IVP STA (19:38)
[2022-07-19] MEDS ORDERED: SODIUM CHLORIDE 0.9% 1,000 ML IV STA (19:38)
--- NOTE | 2022-07-19 19:46 | ED ---
Neuro HPI - General Chief Complaint: Neuro Symptoms/Deficit Stated Complaint: R. Sided Numbness Time Seen by Provider: 07/19/22 19:32 Source: patient Mode of arrival: ambulatory Limitations: no limitations - History of Present Illness Is the patient presenting with stroke symptoms?: Yes Initial Comments: This 62-year-old female presents with a complaint of some right upper extremity numbness and weakness which started at approximately 8 AM today. She also complains of some numbness to her right face and right scalp. She also was noted to have a slight left facial droop by the triage nurse. She does relate a history of previous TIA on 2 occasions. She does have a history of previous DVT and pulmonary embolism and is on blood thinners. She also complains of some right calf pain which she's had for several days since a plane ride recently. She apparently followed up with her doctor and they felt as though she needed a Doppler ultrasound of her right leg and scheduled for August 31. She denies any chest pain or shortness breath. She has had some mild nausea. She denies any fevers or chills. No other complaints or modifying factors. Patient is currently on xarelto. - Related Data Home Medications: Home Medications Medication Instructions Recorded Confirmed Nitroglycerin Sl Tabs [Nitrostat] 0.4 mg PO Q5M PRN 09/24/13 07/19/22 Cyclobenzaprine [Flexeril] 10 mg PO BID PRN 04/26/18 07/19/22 Gabapentin [Neurontin] 800 mg PO BID 07/10/18 07/19/22 Cetirizine HCl 10 mg PO DAILY 07/21/19 07/19/22 Rivaroxaban [Xarelto] 20 mg PO HS 12/17/21 07/19/22 Albuterol Inhaler [Ventolin Hfa 2 puff INHALATION RT-QID PRN 07/19/22 07/19/22 Inhaler] Ergocalciferol (Vitamin D2) 1,250 mcg PO MO 07/19/22 07/19/22 [Drisdol (50,000 Iu)] Furosemide [Lasix] 20 mg PO DAILY 07/19/22 07/19/22 Ibuprofen [Motrin] 800 mg PO Q8H PRN 07/19/22 07/19/22 Levothyroxine Sodium [Synthroid] 137 mcg PO DAILY 07/19/22 07/19/22 Omeprazole 40 mg PO DAILY 07/19/22 07/19/22 Allergies/Adverse Reactions: Allergies Allergy/AdvReac Type Severity Reaction Status Date / Time Iodinated Contrast Media Allergy Rash/Hives, Verified 07/19/22 19:50 [Iodinated Contrast Media - swelling,it Oral and] tiffanie iodine Allergy Rash/Hives, Verified 07/19/22 19:50 swelling,it tiffanie latex Allergy Swelling,it Verified 07/19/22 19:50 tiffanie,hives pregabalin [From Lyrica] Allergy affected Verified 07/19/22 19:50 vision midazolam [From Versed] AdvReac Unknown Nausea & Verified 07/19/22 19:50 Vomiting propofol AdvReac Unknown Nausea & Verified 07/19/22 19:50 Vomiting Review of Systems ROS Statement: Those systems with pertinent positive or pertinent negative responses have been documented in the HPI. ROS Other: All systems not noted in ROS Statement are negative. General Exam - General Exam Comments Initial Comments: GENERAL: The patient is well nourished and well hydrated. VITAL SIGNS: Heart rate, blood pressure, respiratory rate reviewed as recorded in nurse's notes. EYES: Pupils are round and reactive. Extraocular movements are intact. No conjunctival / lid redness or swelling. ENT: No external evidence of injury, swelling, or ecchymosis. Airway is patent. Throat is clear. NECK: Nontender. No swelling or evidence of injury. No subcutaneous emphysema. Trachea is midline. No thyroid mass. HEART: Regular rate and rhythm. Good peripheral pulses. LUNGS/CHEST: Breath sounds clear and equal bilaterally. No rales, rhonchi, or wheezes. No ecchymosis, subcutaneous emphysema, or tenderness. ABDOMEN: Abdomen soft without tenderness. No palpable masses or organomegaly. No peritoneal signs. No abdominal wall swelling or ecchymosis. EXTREMITIES: Mild tenderness noted right calf, no swelling. Normal muscle tone and function. No thoracolumbar tenderness. NEUROLOGIC: Cranial nerve exam reveals, tongue is midline, speech is clear. T here is some minimal weakness to right upper and right lower extremity. There maybe a slight left facial droop which is questionable. There is some degree of subjective numbness to the right arm, right face, and right scalp. The NIH stroke scale is 4. SKIN: No abrasions or ecchymosis is noted. No induration or masses noted. PSYCHIATRIC: Alert and oriented. Appropriate behavior and judgment. Limitations: no limitations Stroke MDM - Lab Data Result diagrams: 07/19/22 19:45 07/19/22 19:45 Lab Results 07/19/22 07/19/22 07/19/22 Range/Units 19:36 19:45 19:45 WBC 8.8 (3.8-10.6) k/uL RBC 4.64 (3.80-5.40) m/uL Hgb 14.9 (11.4-16.0) gm/dL Hct 46.0 (34.0-46.0) % MCV 99.1 (80.0-100.0) fL MCH 32.1 (25.0-35.0) pg MCHC 32.4 (31.0-37.0) g/dL RDW 13.7 (11.5-15.5) % Plt Count 229 (150-450) k/uL MPV 7.9 Neutrophils % 65 % Lymphocytes % 24 % Monocytes % 6 % Eosinophils % 3 % Basophils % 1 % Neutrophils # 5.7 (1.3-7.7) k/uL Lymphocytes # 2.1 (1.0-4.8) k/uL Monocytes # 0.5 (0-1.0) k/uL Eosinophils # 0.2 (0-0.7) k/uL Basophils # 0.1 (0-0.2) k/uL PT 9.6 (9.0-12.0) sec INR 0.9 (<1.2) APTT 24.1 (22.0-30.0) sec Sodium (137-145) mmol/L Potassium (3.5-5.1) mmol/L Chloride (98-107) mmol/L Carbon Dioxide (22-30) mmol/L Anion Gap mmol/L BUN (7-17) mg/dL Creatinine (0.52-1.04) mg/dL Est GFR (CKD-EPI)AfAm (>60 ml/min/1.73 sqM) Est GFR (CKD-EPI)NonAf (>60 ml/min/1.73 sqM) Glucose (74-99) mg/dL POC Glucose (mg/dL) 124 H (70-110) mg/dL POC Glu Elevator Examiner ID [place] Calcium (8.4-10.2) mg/dL Total Bilirubin (0.2-1.3) mg/dL AST (14-36) U/L ALT (4-34) U/L Alkaline Phosphatase (38-126) U/L Troponin I (0.000-0.034) ng/mL Total Protein (6.3-8.2) g/dL Albumin (3.5-5.0) g/dL 07/19/22 07/19/22 Range/Units 19:45 19:45 WBC (3.8-10.6) k/uL RBC (3.80-5.40) m/uL Hgb (11.4-16.0) gm/dL Hct (34.0-46.0) % MCV (80.0-100.0) fL MCH (25.0-35.0) pg MCHC (31.0-37.0) g/dL RDW (11.5-15.5) % Plt Count (150-450) k/uL MPV Neutrophils % % Lymphocytes % % Monocytes % % Eosinophils % % Basophils % % Neutrophils # (1.3-7.7) k/uL Lymphocytes # (1.0-4.8) k/uL Monocytes # (0-1.0) k/uL Eosinophils # (0-0.7) k/uL Basophils # (0-0.2) k/uL PT (9.0-12.0) sec INR (<1.2) APTT (22.0-30.0) sec Sodium 137 (137-145) mmol/L Potassium 4.1 (3.5-5.1) mmol/L Chloride 104 (98-107) mmol/L Carbon Dioxide 28 (22-30) mmol/L Anion Gap 5 mmol/L BUN 23 H (7-17) mg/dL Creatinine 0.85 (0.52-1.04) mg/dL Est GFR (CKD-EPI)AfAm 85 (>60 ml/min/1.73 sqM) Est GFR (CKD-EPI)NonAf 73 (>60 ml/min/1.73 sqM) Glucose 111 H (74-99) mg/dL POC Glucose (mg/dL) (70-110) mg/dL POC Glu Elevator Examiner ID Calcium 8.8 (8.4-10.2) mg/dL Total Bilirubin 0.5 (0.2-1.3) mg/dL AST 22 (14-36) U/L ALT 66 H (4-34) U/L Alkaline Phosphatase 53 (38-126) U/L Troponin I <0.012 (0.000-0.034) ng/mL Total Protein 7.0 (6.3-8.2) g/dL Albumin 4.1 (3.5-5.0) g/dL - NIH Stroke Scale 1a. Level of Consciousness: (0) alert 1b. LOC Questions: (0) answers correctly 1c. LOC Commands: (0) performs tasks correctly 2. Best Gaze: (0) normal 3. Visual: (0) no visual loss 4. Facial Palsy: (1) minor paralysis 5a. Motor Arm Left: (0) no drift 5b. Motor Arm Right: (1) drift 6a. Motor Leg Left: (0) no drift 6b. Motor Leg Right: (1) drift 7. Limb Ataxia: (0) absent 8. Sensory: (1) mild/moderate sensory loss 9. Best Language: (0) no aphasia 10. Dysarthria: (0) normal 11. Extinction/Inattention: (0) no abnormality - Medical Decision Making Was pt. sent in by a medical professional or institution (PRASANNA Sebastian, CASE HARDENER, urgent care, hospital, or fci...) When possible be specific @ -[No] Did you speak to anyone other than the patient for history (EMS, parent, family, police, friend...)? What history was obtained from this source @ - also is present and helps with history. Did you review nursing and triage notes (agree or disagree)? Why? @ -[I reviewed and agree with nursing and triage notes] Were old charts reviewed (outside hosp., previous admission, EMS record, old EKG, old radiological studies, urgent care reports/EKG's, fci records)? Report findings @ -Old records were reviewed in additional past medical history is obtained. This does include a history of DVT, angina, hypertension. Differential Diagnosis (chest pain, altered mental status, abdominal pain women, abdominal pain men, vaginal bleeding, weakness, fever, dyspnea, syncope, headache, dizziness, GI bleed, back pain, seizure, CVA, palpatations, mental health, musculoskeletal)? @ -CVA, TIA EKG interpreted by me (3pts min.). @ -EKG is interpreted by myself and does show normal sinus rhythm at a rate of 80. There is no acute ST or T wave changes noted. Intervals are normal. X-rays interpreted by me (1pt min.). @ -The chest x-rays interpreted by myself and does not show any acute abnormalities. There is a fairly large gastric air bubble. CT interpreted by me (1pt min.). @ -CT is interpreted by radiology. U/S interpreted by me (1pt. min.). @ -Ultrasound of right lower extremity is interpreted by radiology. What testing was considered but not performed or refused? (CT, X-rays, U/S, labs)? Why? @ -CT angiogram of the brain was considered but not performed as the patient does have an iodine contrast ALLERGY and it is felt as though she would benefit from MRI and MRA of the brain instead. This test will be ordered. What meds were considered but not given or refused? Why? @ -[None] Did you discuss the management of the patient with other professionals (professionals i.e. , PA, CASE HARDENER, lab, RT, psych nurse, social services analyst, veterinary radiologist, teacher, safety patrol officer, mental health case manager)? Give summary @ -Case is discussed with internal medicine and they are agreeable with admission. Was smoking cessation discussed for >3mins.? @ -[No] Was critical care preformed (if so, how long)? @ -[No] Were there social determinants of health that impacted care today? How? (Homelessness, low income, unemployed, alcoholism, drug addiction, transportat ion, low edu. Level, literacy, decrease access to med. care, [facility], rehab)? @ -[No] Was there de-escalation of care discussed even if they declined (Discuss DNR or withdrawal of care, Hospice)? DNR status @ -[No] What co-morbidities impacted this encounter? (DM, HTN, Smoking, COPD, CAD, Cancer, CVA, ARF, Chemo, Hep., AIDS, mental health diagnosis, sleep apnea, morbid obesity)? @ -Patient does have hypertension, angina, history of DVT. Was patient admitted / discharged? Hospital course, mention meds given and route, prescriptions, significant lab abnormalities, going to OR and other pertinent info. @ -The patient was seen and examined. IV is established and she is placed on a ekg monitor tech. No ectopy is identified. Laboratory and diagnostics were obtained. The laboratory does not show any acute significant abnormalities. The ultrasound of the right leg does not show any evidence of DVT. The computed tomography scan of the brain does not show any evidence of acute process. It is felt as though the patient's symptomatology is consistent with that of a CVA. It is not felt as though she is a candidate for TPA as she was approximately 12 hours out by the time she came to the emergency department. Her symptoms on recheck appeared to be improving as she states that the numbness to her face and scalp have significantly resolved. There is felt as though she would benefit from admission to the hospital with MRI and MRA of the head and neck for further evaluation and neurology consultation. Aspirin is given. Undiagnosed new problem with uncertain prognosis? @ -[No] Drug Therapy requiring intensive monitoring for toxicity (Heparin, Nitro, Insulin, Cardizem)? @ -[No] Were any procedures done? @ -[No] Diagnosis/symptom? @ -CVA Acute, or Chronic, or Acute on Chronic? @ -Acute Uncomplicated (without systemic symptoms) or Complicated (systemic symptoms)? @ -Uncomplicated Side effects of treatment? @ -[No] Exacerbation, Progression, or Severe Exacerbation? @ -[No] Poses a threat to life or bodily function? How? (Chest pain, USA, ID, pneumonia, PE, COPD, DKA, ARF, appy, cholecystitis, CVA, Diverticulitis, Homicidal, Suicidal, threat to staff... and all critical care pts) @ -Yes, CVA does pose a threat to bodily function. Past Medical History Past Medical History: Blood Disorder, Chest Pain / Angina, CVA/TIA, Deep Vein Thrombosis (DVT), Fibromyalgia, Hearing Disorder / Deafness, Hyperlipidemia, Hypertension, Neurologic Disorder, Osteoarthritis (OA), Pneumonia, Pulmonary Embolus (PE), Thyroid Disorder Additional Past Medical History / Comment(s): CHRONIC BACK PAIN, BILATERAL LEG NEUROPATHY(right leg worse), sciatica. Urinary incontinence/bladder spasms. IBS. 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 HX ENCEPHALOPATHY 2013. Migraines. Hx bronchitis. Varicose veins. Environmental allergies. Hx ulcers, hx anemia. Hx TIA X2, no residual effects. Hypertension resolved. Muscle weakness. Hard of hearing., hx PE and DVT's- last dvt Jan 2021 right leg., states colonoscopy 12/18/21 showed internal hemorrhoids., pt states day after colonoscopy she fell and was seen in the ER for fx left wrist & concussion-she states abrasion with bump on forehead, bruised right hand and knee and left eye is black & blue., brace on left wrist. History of Any Multi-Drug Resistant Organisms: None Reported Past Surgical History: Breast Surgery, Cholecystectomy, Heart Catheterization, Hysterectomy, Orthopedic Surgery, Tonsillectomy Additional Past Surgical History / Comment(s): Breast reduction, BILATERAL WRIST CARPAL TUNNEL SURGERY, LEFT WRIST SURGERY TO REPAIR TENDONS/LIGAMENTS, right shoulder rotator cuff repair, "surgery bilateral eyes for pressure", RIGHT KNEE MENISCUS REPAIR. Past Anesthesia/Blood Transfusion Reactions: Motion Sickness, Postoperative Nausea & Vomiting (PONV) Additional Past Anesthesia/Blood Transfusion Reaction / Comment(s): No problems with prior blood transfusion. Slow to wake up. Daughter PONV and slow to wake up. states versed and propafol cause nausea and vomiting. Past Psychological History: No Psychological Hx Reported Smoking Status: Never smoker - Past Family History Brother(s) Family Medical History: Cancer, Myocardial Infarction (ID) Additional Family Medical History / Comment(s): One brother had lymphoma, lung cancer. Other Brother - cancer in neck. Course Vital Signs 07/19/22 19:26 Temperature 98.0 F Pulse Rate 80 Respiratory 16 Rate Blood Pressure 170/106 O2 Sat by Pulse 97 Oximetry Disposition Clinical Impression: Right sided weakness, Right sided numbness, Facial droop, Hypertension, CVA (cerebral vascular accident), Right leg pain, History of DVT (deep vein thrombosis) Disposition: ADMITTED IP TO THIS [facility] Condition: Fair Is patient prescribed a controlled substance at d/c from ED?: No Referrals: Wei Gonzalez MD [Primary Care Provider] - 1-2 days Time of Disposition: 20:52 Decision Date: 07/19/22 Decision Time: 20:52
[2022-07-19 19:59] LABS: Basophils # (A) 0.1 k/uL (0-0.2); Basophils % (A) 1 %; Eosinophils # (A) 0.2 k/uL (0-0.7); Eosinophils % (A) 3 %; HGB 14.9 gm/dL (11.4-16.0); Lymphocytes # (A) 2.1 k/uL (1.0-4.8); Lymphocytes % (A) 24 %; MCH 32.1 pg (25.0-35.0); MCHC 32.4 g/dL (31.0-37.0); MCV 99.1 fL (80.0-100.0); Mean Platelet Volume 7.9; Monocytes # (A) 0.5 k/uL (0-1.0); Monocytes % (A) 6 %; Neutrophils # (A) 5.7 k/uL (1.3-7.7); Neutrophils % (A) 65 %; Platelet Count 229 k/uL (150-450); RBC 4.64 m/uL (3.80-5.40); RDW 13.7 % (11.5-15.5); WBC 8.8 k/uL (3.8-10.6)
[2022-07-19 20:18] LABS: Potassium 4.1 mmol/L (3.5-5.1)
[2022-07-19 20:19] LABS: Albumin 4.1 g/dL (3.5-5.0); Calcium 8.8 mg/dL (8.4-10.2); Total Bilirubin 0.5 mg/dL (0.2-1.3)
[2022-07-19 20:23] LABS: INR 0.9 (<1.2); Partial Thromboplastin Time 24.1 sec (22.0-30.0); Prothrombin Time 9.6 sec (9.0-12.0)
--- NOTE | 2022-07-19 20:45 | XR ---
EXAMINATION TYPE: XR chest 2V DATE OF EXAM: 07/19/2022 7:56 PM COMPARISON: Chest x-ray 12/19/2021 TECHNIQUE: XR chest 2V . CLINICAL INDICATION:Female, 62 years old with history of altered mental status; FINDINGS: Lungs/Pleura: There is no evidence of pleural effusion, focal consolidation, or pneumothorax. Eventr ation of the left hemidiaphragm. Pulmonary vascularity: Unremarkable. Heart/mediastinum: Cardiomediastinal silhouette is unremarkable. Musculoskeletal: Multiple level degenerative disc disease changes seen throughout the spine. IMPRESSION: No acute cardiopulmonary disease/process.
--- NOTE | 2022-07-19 20:48 | CT ---
EXAMINATION TYPE: CT brain wo con CT DLP: 1114.4 mGycm, Automated exposure control for dose reduction was used. DATE OF EXAM: 07/19/2022 8:03 PM COMPARISON: CT brain 12/19/2021. CLINICAL INDICATION:Female, 62 years old with history of Neuro deficit, acute, stroke suspected, weak ness, ams TECHNIQUE: Brain: Axial CT images of the brain were obtained with coronal and sagittal reformats created and rev iewed. Contrast used: None. Oral contrast used: None. FINDINGS: Brain: Extra-axial spaces: No abnormal extra-axial fluid collections. Ventricular system: Within normal limits Cerebral parenchyma: No acute intraparenchymal hemorrhage or mass effect. The daniels-white junction is well differentiated. Cerebellum: Unremarkable. Mass effect: No evidence of midline shift. Intracranial vasculature: unremarkable Soft tissues: Normal. Calvarium/osseous structures: No depressed skull fracture. Paranasal sinuses and mastoid air cells: Clear. Mastoid air cells are Clear Visualized orbits: Bilateral aphakia IMPRESSION: No acute intracranial process.
--- NOTE | 2022-07-19 20:53 | US ---
EXAMINATION TYPE: US venous doppler duplex LE RT DATE OF EXAM: 07/19/2022 8:32 PM COMPARISON: No relevant priors. CLINICAL HISTORY: leg pain. Recent plane ride. On blood thinners. Pain. SIDE PERFORMED: Right TECHNIQUE: The lower extremity deep venous system is examined utilizing real time linear array sonog gurvinder with graded compression, doppler sonography and color-flow sonography. VESSELS IMAGED: Common Femoral Vein Deep Femoral Vein Greater Saphenous Vein * Femoral Vein Popliteal Vein Small Saphenous Vein * Proximal Calf Veins (* superficial vessels) Right Leg: Negative for DVT IMPRESSION: Grayscale, color doppler, spectral doppler imaging performed of the deep veins of the lo wer extremities. There is normal flow, compressibility, vascular waveforms. No evidence for an thro mbosis of the right lower extremity.
[2022-07-19] MEDS ORDERED: CYCLOBENZAPRINE 10 MG TAB PO PRN (21:08)
[2022-07-19] MEDS ORDERED: ASPIRIN 81 MG PO STA (21:08)
[2022-07-19] MEDS ORDERED: IBUPROFEN 800 MG TAB PO PRN (21:08)
[2022-07-19] MEDS ORDERED: ALBUTEROL HFA INHALER INHALATION PRN (21:08)
[2022-07-19 21:17] LABS: Appearance,Urine Clear (Clear); Bacteria,Urine Rare /hpf; Bilirubin,Urine Negative (Negative); Blood,Urine Negative (Negative); Color,Urine Light Yellow; Glucose,Urine (UA) Negative (Negative); Ketones,Urine Negative (Negative); Leukocyte Esterase,Urine Trace (Negative); Nitrite,Urine Negative (Negative); Protein,Urine Negative (Negative); RBC,Urine 1 /hpf (0-5); Specific Gravity,Urine 1.016 (1.001-1.035); Squamous Epithelial Cell,Urine <1 /hpf (0-4); Urobilinogen,Urine <2.0 mg/dL (<2.0); WBC,Urine 8 /hpf (0-5)
[2022-07-19] MEDS: GABAPENTIN 400 MG CAP PO SCH (21:29)
[2022-07-19] MEDS: RIVAROXABAN 20 MG TAB PO SCH (21:29)
[2022-07-20] MEDS: PANTOPRAZOLE 40 MG TABLET PO SCH (05:49)
[2022-07-20] MEDS: GABAPENTIN 400 MG CAP PO SCH ×2 (05:49→20:24)
[2022-07-20] MEDS: FUROSEMIDE 20 MG TAB PO SCH (05:50)
[2022-07-20] MEDS: ASPIRIN 325 MG TAB PO SCH (05:50)
[2022-07-20] MEDS: LORATADINE 10 MG TAB PO SCH (05:50)
[2022-07-20] MEDS: LEVOTHYROXINE 137 MCG TAB PO SCH (06:24)
[2022-07-20] MEDS ORDERED: ERGOCALCIFEROL 1,250 MCG (50,000 IU) CAPSULE PO SCH (09:00)
[2022-07-20 09:15] LABS: Chol/HDL Ratio 3.27 Ratio; LDL Cholesterol,Calculated 150.5 mg/dL (0.0-131.0)
--- NOTE | 2022-07-20 13:13 | P.CNNES ---
History of Present Illness Consult date: 07/20/22 Requesting physician: Shen Pollock Reason for Consult: cva History of Present Illness: This is a 62-year-old woman with history of TIA, DVT and patient is on Xarelto was in the emergency department because of the right upper extremity weakness and numbness that started about 7:30 AM yesterday and prior to that was normal. Also patient complains of numbness over right side of the face. Patient is on Xarelto as well as home medication. Patient stated she was out of the country and has been having swelling of her legs for past two weeks and did not seek any medical attention. She has returned from her trip on 07/15/2022. Currently is having weakness of left face. Some of the work-up during this hospital visit consisted of: Per the ED team patient had NIH stroke scale of 4 and the points was 1 for the facial, 1 the motor on the right arm, 1 the motor on the leg and [address] of the head is reported as no acute intracranial process. Lipid panels triglyceride 105, cholesterol is 247, LDLs 150, HDL 75. TSH is 3.30 Initial POC glucose is 124. No IV TPA per the ED team since last normal was 12 hours from normal. And the risk outweighed the benefit. As well as the patient is on anticoagulation. Review of Systems Review of system: The 12 point system was reviewed and apparent positive and negative per HPI. Past Medical History Past Medical History: Blood Disorder, Chest Pain / Angina, CVA/TIA, Deep Vein Thrombosis (DVT), Fibromyalgia, Hearing Disorder / Deafness, Hyperlipidemia, Hypertension, Neurologic Disorder, Osteoarthritis (OA), Pneumonia, Pulmonary Embolus (PE), Thyroid Disorder Additional Past Medical History / Comment(s): CHRONIC BACK PAIN, BILATERAL LEG NEUROPATHY(right leg worse), sciatica. Urinary incontinence/bladder spasms. IBS. 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 HX ENCEPHALOPATHY 2013. Migraines. Hx bronchitis. Varicose veins. Environmental allergies. Hx ulcers, hx anemia. Hx TIA X2, no residual effects. Hypertension resolved. Muscle weakness. Hard of hearing., hx PE and DVT's- last dvt Jan 2021 right leg., states colonoscopy 12/18/21 showed internal hemorrhoids., pt states day after colonoscopy she fell and was seen in the ER for fx left wrist & concussion-she states abrasion with bump on forehead, bruised right hand and knee and left eye is black & blue., brace on left wrist. History of Any Multi-Drug Resistant Organisms: None Reported Past Surgical History: Breast Surgery, Cholecystectomy, Heart Catheterization, Hysterectomy, Orthopedic Surgery, Tonsillectomy, Tubal Ligation Additional Past Surgical History / Comment(s): Breast reduction, BILATERAL WRIST CARPAL TUNNEL SURGERY, LEFT WRIST SURGERY TO REPAIR TENDONS/LIGAMENTS, right shoulder rotator cuff repair, "surgery bilateral eyes for pressure", RIGHT KNEE MENISCUS REPAIR. Past Anesthesia/Blood Transfusion Reactions: Motion Sickness, Postoperative Nausea & Vomiting (PONV) Additional Past Anesthesia/Blood Transfusion Reaction / Comment(s): No problems with prior blood transfusion. Slow to wake up. Daughter PONV and slow to wake u p. states versed and propafol cause nausea and vomiting. Past Psychological History: No Psychological Hx Reported Additional Psychological History / Comment(s): pt states when she is stressed she paws at her hair (since childhood) Smoking Status: Never smoker Past Alcohol Use History: Rare Past Drug Use History: None Reported - Past Family History Brother(s) Family Medical History: Cancer, Myocardial Infarction ([place]) Additional Family Medical History / Comment(s): One brother had lymphoma, lung cancer. Other Brother - cancer in neck. Medications and Allergies Home Medications Medication Instructions Recorded Confirmed Type Nitroglycerin Sl Tabs [Nitrostat] 0.4 mg PO Q5M PRN 09/24/13 07/19/22 History Cyclobenzaprine [Flexeril] 10 mg PO BID PRN 04/26/18 07/19/22 History Gabapentin [Neurontin] 800 mg PO BID 07/10/18 07/19/22 History Cetirizine HCl 10 mg PO DAILY 07/21/19 07/19/22 History Rivaroxaban [Xarelto] 20 mg PO HS 12/17/21 07/19/22 History Albuterol Inhaler [Ventolin Hfa 2 puff INHALATION RT-QID PRN 07/19/22 07/19/22 History Inhaler] Ergocalciferol (Vitamin D2) 1,250 mcg PO MO 07/19/22 07/19/22 History [Drisdol (50,000 Iu)] Furosemide [Lasix] 20 mg PO DAILY 07/19/22 07/19/22 History Ibuprofen [Motrin] 800 mg PO Q8H PRN 07/19/22 07/19/22 History Levothyroxine Sodium [Synthroid] 137 mcg PO DAILY 07/19/22 07/19/22 History Omeprazole 40 mg PO DAILY 07/19/22 07/19/22 History Allergies Allergy/AdvReac Type Severity Reaction Status Date / Time Iodinated Contrast Media Allergy Rash/Hives, Verified 07/19/22 19:50 [Iodinated Contrast Media - swelling,it Oral and] tiffanie iodine Allergy Rash/Hives, Verified 07/19/22 19:50 swelling,it tiffanie latex Allergy Swelling,it Verified 07/19/22 19:50 tiffanie,hives pregabalin [From Lyrica] Allergy affected Verified 07/19/22 19:50 vision midazolam [From Versed] AdvReac Unknown Nausea & Verified 07/19/22 19:50 Vomiting propofol AdvReac Unknown Nausea & Verified 07/19/22 19:50 Vomiting Physical Examination - Vital Signs Vital Signs: Vital Signs Temp Pulse Pulse Resp BP BP Pulse Ox 07/20/22 09:35 76 18 07/20/22 09:10 97 07/20/22 08:00 98.0 F 76 18 125/89 95 07/20/22 04:00 71 18 113/71 97 07/20/22 02:51 75 18 07/20/22 02:30 75 18 133/90 95 07/19/22 19:26 98.0 F 80 16 170/106 97 FiO2 07/20/22 09:35 07/20/22 09:10 21 07/20/22 08:00 07/20/22 04:00 07/20/22 02:51 07/20/22 02:30 07/19/22 19:26 Intake and Output 07/19/22 07/20/22 07/20/22 22:59 06:59 14:59 Intake Total 180 Balance 180 Intake: Oral 180 Other: Voiding Method Toilet Toilet # Voids 1 Weight 83.915 kg 83.915 kg GENERAL: The patient is lying in bed and is not in acute distress. CHEST: The heart rate is regular rate rhythm. No murmurs to auscultation. LUNG: Clear to auscultation bilaterally no wheezing noted throughout. Not labored breathing. ABDOMEN/GI: Bowel sounds present in all 4 quadrants. No tenderness to palpation throughout. NEUROLOGICAL: Higher mental function: The patient is awake, alert, oriented to self, place and time. Patient is following commands. No aphasia and no neglect. Cranial nerves: The pupils are round, equal and reactive to light and accommodation. Visual bryant are full to confrontation throughout. Extraocular movement is intact no nystagmus is noted. Facial sensation is decreased to touch over the right V1. Has no facial weakness at baseline but to smile has left lower facial droop with decrease furrow of left upper face?. Hearing is normal bilaterally to hand rub. Tongue is midline and moved [id number] without any difficulty. No dysarthria is noted. Shoulder shrug is normal bilaterally. Motor: The strength is right is 4 while left is 5 over 5 throughout. Normal tone and bulk. Cerebellum: Normal finger to nose bilaterally. Sensation: Sensation is decrease to touch over the right side to touch. . Reflexes (right/left): 2+ throughout. Plantars are downgoing bilaterally. Results - Laboratory Findings CBC and BMP: 07/19/22 19:45 07/19/22 19:45 Abnormal Lab Findings: Abnormal Labs 07/19/22 07/19/22 07/19/22 19:36 19:45 20:45 BUN 23 H Glucose 111 H POC Glucose (mg/dL) 124 H ALT 66 H Cholesterol LDL Cholesterol, Calc HDL Cholesterol Ur Leukocyte Esterase Trace H Urine WBC 8 H Urine Bacteria Rare H 07/20/22 05:45 BUN Glucose POC Glucose (mg/dL) ALT Cholesterol 247.00 H LDL Cholesterol, Calc 150.5 H HDL Cholesterol 75.50 H Ur Leukocyte Esterase Urine WBC Urine Bacteria Assessment and Plan Assessment: Acute right upper extremity weakness with numbess with right facial numbness and left facial droop (on examination having right sided weakness with numbness, ?left facial weakness to smile). Probable acute ischemic stroke History of TIA 2 Dyslipidemia History of DVT History of Pulmonary embolism On Xarelto Plan: MRI of the brain2-D echo was ordered by the ED team is pending I ordered carotid duplex. In addition the patient's Xarelto the patient was started on aspirin 325mg daily by ED team. On Lipitor 80 mg daily at bedtime for secondary stroke prophylaxis Continue neuro checks Placed on cardiac monitoring PT OT and ECONOMIST RESEARCH ASSISTANT are consulted We'll defer the rest of the medical management to primary team For DVT prophylaxis the patient is on Xarelto The plan is discussed with patient and her who is at bedside. Thank you for the consultation. Time with Patient: Greater than 30
--- NOTE | 2022-07-20 13:37 | US ---
EXAMINATION TYPE: US carotid duplex BILAT DATE OF EXAM: 07/20/2022 COMPARISON: NONE CLINICAL HISTORY: stroke. stroke TECHNIQUE: Carotid duplex ultrasound examination. Indirect Doppler criteria was utilized. FINDINGS: EXAM MEASUREMENTS: RIGHT: Peak Systolic Velocity (PSV) cm/sec ----- Right CCA: 85.6 ----- Right ICA: 98.2 ----- Right ECA: 77.9 ICA/CCA ratio: 1.1 RIGHT: End Diastole cm/sec ----- Right CCA: 27.4 ----- Right ICA: 38.7 ----- Right ECA: 16.4 LEFT: Peak Systolic Velocity (PSV) cm/sec ----- Left CCA: 74.6 ----- Left ICA: 87.8 ----- Left ECA: 71.3 ICA/CCA ratio: 1.2 LEFT: End Diastole cm/sec ----- Left CCA: 29.6 ----- Left ICA: 32.9 ----- Left ECA: 18.6 VERTEBRALS (direction of flow): Right Vertebral: Antegrade Left Vertebral: Antegrade Rhythm: Normal HARVEST FIELD TICKETER NOTES: Mild plaque bilateral bifurcations. No evidence of increased velocities IMPRESSION: Less than 50% stenosis of the bilateral carotid bifurcations. Criteria for Assigning % of Stenosis / Diameter reduction (Estimation based on the indirect measurements of the internal carotid artery velocities (ICA PSV). 1. Normal (no stenosis)=ICA PSV < 125 cm/s: ratio < 2.0: ICA EDV<40 cm/s. 2. Less than 50% stenosis=ICA PSV < 125 cm/s: ratio < 2.0: ICA EDV<40 cm/s. 3. 50 to 69% stenosis=ICA PSV of 125 to 230 cm/s: ration 2.0 ? 4.0: ICA EDV 40-100 cm/s. 4. Greater than 70% stenosis to near occlusion= ICA PSV > 230 cm/s: ratio > 4.0: ICA EDV > 100 cm/s. 5. Near occlusion= ICA PSV velocities may be low or undetectable: variable ratio and ICA EDV. 6. Total occlusion=unable to detect flow.
--- NOTE | 2022-07-20 15:52 | P.HPIM ---
History of Present Illness H&P Date: 07/20/22 Chief Complaint: Right arm numbness This is a 62-year-old female with past medical history of CVA/TIA, DVT/PE-on Xarelto, fibromyalgia hyperlipidemia, hypertension and multiple other medical issues with strong family history of CAD CVA diabetes mellitus, presented to the hospital with complaints of right arm numbness with eventual development of right sided face numbness. Patient had recently traveled out of the country to [place], returned on 07/15/2022. Upon return, developed significant lower extremity edema,, followed up with her turner machine Dr. Banegas and received Lasix with significant results. Reports before hoahaoism she developed right arm numbness and as the day progressed developed right-sided headache/facial numbness. Denied slurred speech or troubles with comprehension or expressing self. Minimal visual changes reported in right eye. Reports this morning that 90% of symptoms have resolved with minimal decreased sensation on the lower right forearm. Afebrile, normal WBC. Hematology, coagulation panels unremarkable. Sodium 137, potassium 4.1, bicarb 28, BUN 23, creatinine 0.85, initial glucose 124, ALT 66, troponin negative 1. Denies chest pain, palpitations or shortness of breath. Triglycerides 105, cholesterol 247, LDL 150. TSH 3.3. UA negative. Venous Doppler reported no evidence of thrombosis of the right lower extremity. Chest x-ray reported no acute cardiopulmonary process. CT reported no acute intracranial process. Review of Systems ROS Statement: Those systems with pertinent positive or pertinent negative responses have been documented in the HPI. ROS Other: All systems not noted in ROS Statement are negative. Past Medical History Past Medical History: Blood Disorder, Chest Pain / Angina, CVA/TIA, Deep Vein Thrombosis (DVT), Fibromyalgia, Hearing Disorder / Deafness, Hyperlipidemia, Hypertension, Neurologic Disorder, Osteoarthritis (OA), Pneumonia, Pulmonary Embolus (PE), Thyroid Disorder Additional Past Medical History / Comment(s): CHRONIC BACK PAIN, BILATERAL LEG NEUROPATHY(right leg worse), sciatica. Urinary incontinence/bladder spasms. IBS. 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 HX ENCEPHALOPATHY 2013. Migraines. Hx bronchitis. Varicose veins. Environmental allergies. Hx ulcers, hx anemia. Hx TIA X2, no residual effects. Hypertension resolved. Muscle weakness. Hard of hearing., hx PE and DVT's- last dvt Jan 2021 right leg., states co lonoscopy 12/18/21 showed internal hemorrhoids., pt states day after colonoscopy she fell and was seen in the ER for fx left wrist & concussion-she states abrasion with bump on forehead, bruised right hand and knee and left eye is black & blue., brace on left wrist. History of Any Multi-Drug Resistant Organisms: None Reported Past Surgical History: Breast Surgery, Cholecystectomy, Heart Catheterization, Hysterectomy, Orthopedic Surgery, Tonsillectomy, Tubal Ligation Additional Past Surgical History / Comment(s): Breast reduction, BILATERAL WRIST CARPAL TUNNEL SURGERY, LEFT WRIST SURGERY TO REPAIR TENDONS/LIGAMENTS, right shoulder rotator cuff repair, "surgery bilateral eyes for pressure", RIGHT KNEE MENISCUS REPAIR. Past Anesthesia/Blood Transfusion Reactions: Motion Sickness, Postoperative Nausea & Vomiting (PONV) Additional Past Anesthesia/Blood Transfusion Reaction / Comment(s): No problems with prior blood transfusion. Slow to wake up. Daughter PONV and slow to wake up. states versed and propafol cause nausea and vomiting. Past Psychological History: No Psychological Hx Reported Additional Psychological History / Comment(s): pt states when she is stressed she paws at her hair (since childhood) Smoking Status: Never smoker Past Alcohol Use History: Rare Past Drug Use History: None Reported - Past Family History Brother(s) Family Medical History: Cancer, Myocardial Infarction ([place]) Additional Family Medical History / Comment(s): One brother had lymphoma, lung cancer. Other Brother - cancer in neck. Medications and Allergies Home Medications Medication Instructions Recorded Confirmed Type Nitroglycerin Sl Tabs [Nitrostat] 0.4 mg PO Q5M PRN 09/24/13 07/19/22 History Cyclobenzaprine [Flexeril] 10 mg PO BID PRN 04/26/18 07/19/22 History Gabapentin [Neurontin] 800 mg PO BID 07/10/18 07/19/22 History Cetirizine HCl 10 mg PO DAILY 07/21/19 07/19/22 History Rivaroxaban [Xarelto] 20 mg PO HS 12/17/21 07/19/22 History Albuterol Inhaler [Ventolin Hfa 2 puff INHALATION RT-QID PRN 07/19/22 07/19/22 History Inhaler] Ergocalciferol (Vitamin D2) 1,250 mcg PO MO 07/19/22 07/19/22 History [Drisdol (50,000 Iu)] Furosemide [Lasix] 20 mg PO DAILY 07/19/22 07/19/22 History Ibuprofen [Motrin] 800 mg PO Q8H PRN 07/19/22 07/19/22 History Levothyroxine Sodium [Synthroid] 137 mcg PO DAILY 07/19/22 07/19/22 History Omeprazole 40 mg PO DAILY 07/19/22 07/19/22 History Allergies Allergy/AdvReac Type Severity Reaction Status Date / Time Iodinated Contrast Media Allergy Rash/Hives, Verified 07/19/22 19:50 [Iodinated Contrast Media - swelling,it Oral and] tiffanie iodine Allergy Rash/Hives, Verified 07/19/22 19:50 swelling,it tiffanie latex Allergy Swelling,it Verified 07/19/22 19:50 tiffanie,hives pregabalin [From Lyrica] Allergy affected Verified 07/19/22 19:50 vision midazolam [From Versed] AdvReac Unknown Nausea & Verified 07/19/22 19:50 Vomiting propofol AdvReac Unknown Nausea & Verified 07/19/22 19:50 Vomiting Physical Exam Vitals: Vital Signs Temp Pulse Pulse Resp BP BP Pulse Ox 07/20/22 09:35 76 18 07/20/22 09:10 97 07/20/22 08:00 98.0 F 76 18 125/89 95 07/20/22 04:00 71 18 113/71 97 07/20/22 02:51 75 18 07/20/22 02:30 75 18 133/90 95 07/19/22 19:26 98.0 F 80 16 170/106 97 FiO2 07/20/22 09:35 07/20/22 09:10 21 07/20/22 08:00 07/20/22 04:00 07/20/22 02:51 07/20/22 02:30 07/19/22 19:26 Intake and Output 07/19/22 07/20/22 07/20/22 22:59 06:59 14:59 Intake Total 180 Balance 180 Intake: Oral 180 Other: Voiding Method Toilet Toilet # Voids 1 Weight 83.915 kg 83.915 kg PHYSICAL EXAM: VITAL SIGNS: [As above] GENERAL: Sitting up at side of bed, no acute distress HEENT: Conjunctivae normal. eyes normal. NECK: No JVD. No thyroid enlargement. No LNs CARDIOVASCULAR: S1, S2 regular.. No murmur RESPIRATION: Breath sounds diminished in the bases. No rhonchi or crackles. No bronchial breathing. ABDOMEN: Soft, nontender . No guarding. no masses palpable. No ascites, No hepatosplenomegaly.Bowel sounds heard. LEGS: No edema. no swelling PSYCHIATRY: Alert and oriented X3, mood and affect normal. NERVOUS SYSTEM: Cranial N 2-12 grossly normal. Moves all 4 limbs, right upper extremity MS 4/5 with minimal decreased sensation, otherwise strength and sensation grossly intact. Skin: Warm and dry, no rash Results CBC & Chem 7: 07/19/22 19:45 07/19/22 19:45 Labs: Abnormal Lab Results - Last 24 Hours (Table) 07/19/22 07/19/22 07/19/22 Range/Units 19:36 19:45 20:45 BUN 23 H (7-17) mg/dL Glucose 111 H (74-99) mg/dL POC Glucose (mg/dL) 124 H (70-110) mg/dL ALT 66 H (4-34) U/L Cholesterol (0.00-200.00) mg/dL LDL Cholesterol, Calc (0.0-131.0) mg/dL HDL Cholesterol (40.00-60.00) mg/dL Ur Leukocyte Esterase Trace H (Negative) Urine WBC 8 H (0-5) /hpf Urine Bacteria Rare H (None) /hpf 07/20/22 Range/Units 05:45 BUN (7-17) mg/dL Glucose (74-99) mg/dL POC Glucose (mg/dL) (70-110) mg/dL ALT (4-34) U/L Cholesterol 247.00 H (0.00-200.00) mg/dL LDL Cholesterol, Calc 150.5 H (0.0-131.0) mg/dL HDL Cholesterol 75.50 H (40.00-60.00) mg/dL Ur Leukocyte Esterase (Negative) Urine WBC (0-5) /hpf Urine Bacteria (None) /hpf Thrombosis Risk Factor Assmnt - Choose All That Apply Each Risk Factor Represents 2 Points: Age 61-74 years Thrombosis Risk Factor Assessment Total Risk Factor Score: 2 Thrombosis Risk Factor Assessment Level: Low Risk Assessment and Plan Assessment: Acute right upper extremity numbness with subsequent development of right facial numbness, left facial droop, in a patient with history of TIAs, possible TIA, possible CVA Lumbar degenerative disc disease with radiculopathy,spondylosis, recent epidural steroid injection 06/11/[address] [facility]'s pain management services. Follows with Dr. Escalante History of DVT and PE, anticoagulated on Xarelto Hypertension Hyperlipidemia Obesity, BMI 33.8 Plan: Continue on current medication regime ,monitoring and symptomatic treatment. Echo, brain MRI pending Maintain Xarelto, aspirin, statin, neuro c hecks.Speech,PT/OT/Neurology consults in place, recommendations pending. PPI in place for GI prophylaxis. The impression and plan of care has been dictated as directed. : I performed a history and examination of this patient, discussed the same with the dictator. I agree with the dictator's note ,documented as a scribe. Any additional findings or plans will be noted.
--- NOTE | 2022-07-20 18:36 | MR ---
EXAMINATION TYPE: MR brain wo con DATE OF EXAM: 07/20/2022 COMPARISON: 09/25/2013 HISTORY: Right sided head, face, arm and hand numbness Multiplanar multi echo imaging of the brain performed without contrast. Ventricles have normal size. There is no mass effect or midline shift. No sign of intracranial hemorr kwan. Corpus callosum is intact. Sella turcica is intact. The diffusion images show no sign of an acu te infarct. Brainstem is intact. The daniels and white matter structures have fairly normal signal pattern. No evide nce of cerebral edema. No evidence of posterior fossa mass. IMPRESSION: No evidence of any significant intracranial abnormality. No adverse change compared to old exam.
[2022-07-20] MEDS: RIVAROXABAN 20 MG TAB PO SCH (20:24)
[2022-07-20] MEDS ORDERED: ATORVASTATIN 80 MG TAB PO SCH (21:00)
[2022-07-21] MEDS: LEVOTHYROXINE 137 MCG TAB PO SCH (06:19)
[2022-07-21 08:37] VITALS: RESP 14; TEMP 97.1
[2022-07-21] MEDS: PANTOPRAZOLE 40 MG TABLET PO SCH (08:56)
[2022-07-21] MEDS: LORATADINE 10 MG TAB PO SCH (08:56)
[2022-07-21] MEDS: FUROSEMIDE 20 MG TAB PO SCH (08:56)
[2022-07-21] MEDS: ASPIRIN 325 MG TAB PO SCH (08:57)
[2022-07-21] MEDS: GABAPENTIN 400 MG CAP PO SCH (08:57)
--- NOTE | 2022-07-21 10:10 | CA ---
Transthoracic Echo Report Name: Izabella Cavazos Age: 62 Gender: F : 1960 Exam Date: 07/20/2022 07:38 Exam Location: [facility] Ht (in): 62 Wt (lb): 185 Ordering Physician: Shen Pollock DO Attending/Referring Phys: [id number], Maris Investigator Claims Estee Washburn, [facility] Procedure CPT: Indications: Thrombus Cardiac Hx: Technical Quality: Fair Contrast 1: Total Dose (mL): Contrast 2: Total Dose (mL): MEASUREMENTS (Male / Female) Normal Values 2D ECHO LV Diastolic Diameter PLAX 4.2 cm 4.2 - 5.9 / 3.9 - 5.3 cm LV Systolic Diameter PLAX 2.3 cm IVS Diastolic Thickness 1.0 cm 0.6 - 1.0 / 0.6 - 0.9 cm LVPW Diastolic Thickness 1.1 cm 0.6 - 1.0 / 0.6 - 0.9 cm LV Relative Wall Thickness 0.5 RV Internal Dim ED PLAX 2.4 cm LA Volume 40.3 cm??? 18 - 58 / 22 - 52 cm??? M-MODE Aortic Root Diameter MM 2.9 cm DOPPLER AV Peak Velocity 147.6 cm/s AV Peak Gradient 8.7 mmHg AV Mean Velocity 91.7 cm/s AV Mean Gradient 4.0 mmHg AV Velocity Time Integral 25.1 cm LVOT Peak Velocity 122.9 cm/s LVOT Peak Gradient 6.0 mmHg LVOT Velocity Time Integral 25.1 cm MV Area PHT 3.1 cm??? Mitral E Point Velocity 56.2 cm/s Mitral A Point Velocity 74.5 cm/s Mitral E to A Ratio 0.8 MV Deceleration Time 243.6 ms MV E' Velocity 6.5 cm/s Mitral E to MV E' Ratio 8.7 TR Peak Velocity 187.7 cm/s TR Peak Gradient 14.1 mmHg Right Ventricular Systolic Press 19.1 mmHg FINDINGS Left Ventricle Mildly increased septal wall thickness. Mildly increased posterior wall thickness. Left ventricular cavity size normal. Normal left ventricular systolic function with no obvious regional wall motion abnormalities. Left ventricular ejection fraction is estimated at 55 %. Right Ventricle Normal right ventricular size and function. Right ventricular systolic pressure within normal limits. Right Atrium Normal right atrial size. Left Atrium Normal left atrial size. Mitral Valve Structurally normal mitral valve. No mitral stenosis, regurgitation or prolapse. Aortic Valve No aortic valve stenosis or regurgitation. Tricuspid Valve Structurally normal tricuspid valve. Mild tricuspid regurgitation. Pulmonic Valve Structurally normal pulmonic valve. Pericardium No pericardial effusion. Echo free space anterior to the right ventricle likely represents a fat pad. Aorta Normal size aortic root and proximal ascending aorta. CONCLUSIONS Normal biventricular dimension and systolic function No significant valvular abnormalities noted Previewed by: Dr. Greyson Funk MD (Electronically Signed) Final Date: 21 July 2022 10:09
[2022-07-21 11:37] VITALS: BP 122/79; PULSE 77
--- NOTE | 2022-07-21 12:54 | P.PN ---
Subjective Progress Note Date: 07/21/22 The patient is seen at bedside and feels is doing better and state smile is better but not totally resolved. Objective - Vital Signs Vital signs: Vital Signs Temp 97.1 F L 07/21/22 08:00 Pulse 77 07/21/22 11:31 Resp 14 07/21/22 11:31 BP 122/79 07/21/22 11:31 Pulse Ox 98 07/21/22 11:31 FiO2 21 07/20/22 09:10 Intake & Output 07/20/22 07/21/22 07/21/22 18:59 06:59 18:59 Intake Total 720 120 420 Balance 720 120 420 Intake: Oral 720 120 420 Other: Voiding Method Toilet Toilet Toilet # Voids 1 - Exam GENERAL: The patient is lying in bed and is not in acute distress. NEUROLOGICAL: Higher mental function: The patient is awake, alert, oriented to self, place and time. Patient is following commands. No aphasia and no neglect. Cranial nerves: The pupils are round, equal and reactive to light and accommodation. Visual bryant are full to confrontation throughout. Extraocular movement is intact no nystagmus is noted. Facial sensation is normal to touch. Has no facial weakness at baseline but ?questionable when smile and seemed subtle over the left. Hearing is normal bilaterally to hand rub. Tongue is midline and moved [id number] without any difficulty. No dysarthria is noted. Shoulder shrug is normal bilaterally. Motor: The strength is right is 4 + and feel more effort related while left is 5 over 5 throughout. Normal tone and bulk. Cerebellum: Normal finger to nose bilaterally. Sensation: Sensation is decrease to touch over the right side to touch. . Reflexes (right/left): 2+ throughout. Plantars are downgoing bilaterally. Some of the work-up during this hospital visit consisted of: CT of the head is reported as no acute intracranial process. Lipid panels triglyceride 105, cholesterol is 247, LDLs 150, HDL 75. TSH is 3.30 TSH: 3.32 Initial POC glucose is 124. 2D echo: It is reported as normal biventricular dye mentioned his all function. No significant valvular abnormality noted. Carotid duplex: Less than 50% stenosis of bilateral carotid bifurcation. No evidence of any significant intracranial abnormality. No adverse changes compared to old exam. I personally reviewed the MRI and I agree there is no evidence of any acute subacute ischemic stroke. - Labs CBC & Chem 7: 07/19/22 19:45 07/19/22 19:45 Assessment and Plan Assessment: * Acute right upper extremity weakness with numbess with right facial numbness and left facial droop (on examination having effort related right sided weakness and ?facial weakness to smile but normal at rest). MRI Brain is negative for stroke. Appears more function. * History of TIA 2 * Dyslipidemia * History of DVT * History of Pulmonary embolism * On Xarelto Plan: In addition the patient's Xarelto the patient was started on aspirin 325mg daily by ED team. From a neurologic perspective the aspirin can be decreased from 325 the daily to 81mg. On Lipitor 80 mg daily at bedtime for secondary stroke prophylaxis and from a neurologic perspective can be decreased down to 40mg qhs. Consider MRI of the cervical spine as an outpatient Continue neuro checks Placed on cardiac monitoring PT OT and CUTTER FINISHER are consulted We'll defer the rest of the medical management to primary team For DVT prophylaxis the patient is on Xarelto Recommend the patient follow up with a neurologist as an outpatient within 1-2 weeks. The plan is discussed with patient and her who is at bedside. There is no further neurological workup. Time with Patient: Less than 30
--- NOTE | 2022-07-21 13:44 | P.DS ---
Providers Date of admission: 07/19/22 21:12 Expected date of discharge: 07/21/22 Attending physician: Wei Gonzalez MD Consults: 07/19/22 21:13 Consult Physician Urgent Consulting Provider: Amandeep Rai Consult Reason/Comments: cva Do you want consulting provider notified?: Yes Primary care physician: Wei Gonzalez MD Hospital Course: Final Diagnoses: Acute right upper extremity numbness with subsequent development of right facial numbness, left facial droop, in a patient with history of TIAs, recent epidural steroid injection 07/02. possible TIA, brain MRI negative for CVA. Symptoms nearly resolved. Lumbar degenerative disc disease with radiculopathy,spondylosis, recent epidural steroid injection 06/11/22 with [facility] pain management services. Follows with Dr. 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 Patient had recently traveled out of the country to [place], returned on 07/15/2022. Upon return, developed significant lower extremity edema,, followed up with her game attendant Dr. Banegas and received Lasix with significant results. Reports before congregational she developed right arm numbness and as the day progressed developed right-sided headache/facial numbness. Denied slurred speech or troubles with comprehension or expressing self. Minimal visual changes reported in right eye. Reports this morning that 90% of symptoms have resolved with minimal decreased sensation on the lower right forearm. Afebrile, normal WBC. Hematology, coagulation panels unremarkable. Sodium 137, potassium 4.1, bicarb 28, BUN 23, creatinine 0.85, initial glucose 124, ALT 66, troponin negative 1. Denies chest pain, palpitations or shortness of breath. Triglycerides 105, cholesterol 247, LDL 150. TSH 3.3. UA negative. Neuro workup completed including Brain MRI- reported no evidence of any significant intracranial abnormality. Carotid duplex reported less thena 50% stenosis of bilateral carotid bifurcation. 2-D echo reported normal biventr icular dimension and systolic function with no significant valvular abnormalities noted. No adverse change compared to old the same. Symptoms have nearly resolved, minimal right wrist decreased sensation. Neurology has cleared patient for discharge recommending aspirin be decreased 81 mg daily in addition to Xarelto, Lipitor 80 mg B decreased to 40 mg daily at bedtime and to consider MRI of the C-spine as an outpatient. Patient will need follow-up with the neurology outpatient within 1-2 weeks. Significant clinical improvement. Patient will be discharged home today in a stable condition with current prognosis. The impression and plan of care has been dictated as directed. : I performed a history and examination of this patient, discussed the same with the dictator. I agree with the dictator's note ,documented as a scribe. Any additional findings or plans will be noted. Patient Condition at Discharge: Stable Plan - Discharge Summary Discharge Rx Participant: Yes New Discharge Prescriptions: New Aspirin EC [Ecotrin Low Dose] 81 mg PO DAILY #30 tab Atorvastatin Calcium [Lipitor] 40 mg PO DAILY #30 tab Continue Nitroglycerin Sl Tabs [Nitrostat] 0.4 mg PO Q5M PRN PRN Reason: Chest Pain Cyclobenzaprine [Flexeril] 10 mg PO BID PRN PRN Reason: Muscle Spasm Gabapentin [Neurontin] 800 mg PO BID Cetirizine HCl 10 mg PO DAILY Rivaroxaban [Xarelto] 20 mg PO HS Levothyroxine Sodium [Synthroid] 137 mcg PO DAILY Ibuprofen [Motrin] 800 mg PO Q8H PRN PRN Reason: Pain Or Fever > 100.5 Omeprazole 40 mg PO DAILY Furosemide [Lasix] 20 mg PO DAILY Albuterol Inhaler [Ventolin Hfa Inhaler] 2 puff INHALATION RT-QID PRN PRN Reason: Shortness Of Breath Ergocalciferol (Vitamin D2) [Drisdol (50,000 Iu)] 1,250 mcg PO MO Discharge Medication List Nitroglycerin Sl Tabs [Nitrostat] 0.4 mg PO Q5M PRN 09/24/13 [History] Cyclobenzaprine [Flexeril] 10 mg PO BID PRN 04/26/18 [History] Gabapentin [Neurontin] 800 mg PO BID 07/10/18 [History] Cetirizine HCl 10 mg PO DAILY 07/21/19 [History] Rivaroxaban [Xarelto] 20 mg PO HS 12/17/21 [History] Albuterol Inhaler [Ventolin Hfa Inhaler] 2 puff INHALATION RT-QID PRN 07/19/22 [History] Ergocalciferol (Vitamin D2) [Drisdol (50,000 Iu)] 1,250 mcg PO MO 07/19/22 [History] Furosemide [Lasix] 20 mg PO DAILY 07/19/22 [History] Ibuprofen [Motrin] 800 mg PO Q8H PRN 07/19/22 [History] Levothyroxine Sodium [Synthroid] 137 mcg PO DAILY 07/19/22 [History] Omeprazole 40 mg PO DAILY 07/19/22 [History] Aspirin EC [Ecotrin Low Dose] 81 mg PO DAILY #30 tab 07/21/22 [Rx] Atorvastatin Calcium [Lipitor] 40 mg PO DAILY #30 tab 07/21/22 [Rx] Follow up Appointment(s)/Referral(s): Wei Gonzalez MD [Primary Care Provider] - 07/23/22 10:30 am (With [facility] ) Patient Instructions/Handouts: Deep Vein Thrombosis (DC), Weakness (DC), Hypertension (DC), Stroke (DC) Activity/Diet/Wound Care/Special Instructions: CoQ10 daily at bedtime along with statin at bedtime Discharge Disposition: HOME SELF-CARE
== END 2022-07-21 12:49 | disposition home or self-care (01) ==
LOC: EC 19:21 → INTOOBSV 21:12 → 3SCARD 21:12 → UNDODISIN 07-21 12:49
PROVIDERS: ADMIT Family Medicine; ATTEND Family Medicine
DX: R20.0 Anesthesia of skin (principal); R20.2 Paresthesia of skin; R29.810 Facial weakness; Z86.73 Personal history of transient ischemic attack (TIA), and cerebral infarction without residual deficits; M51.16 Intervertebral disc disorders with radiculopathy, lumbar region; M47.9 Spondylosis, unspecified; I10 Essential (primary) hypertension; E78.5 Hyperlipidemia, unspecified; E66.9 Obesity, unspecified; I65.23 Occlusion and stenosis of bilateral carotid arteries; H91.90 Unspecified hearing loss, unspecified ear; M19.90 Unspecified osteoarthritis, unspecified site; G89.29 Other chronic pain; M54.9 Dorsalgia, unspecified; G62.9 Polyneuropathy, unspecified; R32 Unspecified urinary incontinence; K58.9 Irritable bowel syndrome, unspecified; D68.51 Activated protein C resistance; M79.7 Fibromyalgia; E07.9 Disorder of thyroid, unspecified; Z86.718 Personal history of other venous thrombosis and embolism; Z68.33 Body mass index [BMI] 33.0-33.9, adult; Z79.01 Long term (current) use of anticoagulants; Z86.711 Personal history of pulmonary embolism; Z87.01 Personal history of pneumonia (recurrent); Z90.49 Acquired absence of other specified parts of digestive tract; Z79.890 Hormone replacement therapy; Z79.899 Other long term (current) drug therapy; Z91.041 Radiographic dye allergy status; Z91.040 Latex allergy status; Z88.8 Allergy status to other drugs, medicaments and biological substances; Z91.048 Other nonmedicinal substance allergy status; Z80.7 Family history of other malignant neoplasms of lymphoid, hematopoietic and related tissues; Z80.1 Family history of malignant neoplasm of trachea, bronchus and lung; Z83.3 Family history of diabetes mellitus; Z82.49 Family history of ischemic heart disease and other diseases of the circulatory system; Z82.3 Family history of stroke
CPT/HCPCS: 96361 ×3; 96374; 99285; 36415; 94760 ×2; 93005; 93306; 97162; 97165; 92523; 80061; 80053; 84443; 84484; 85025; 85610; 85730; 81001; 71046; 93971; 93880; 70450; 70551; G0378 ×3; J2405

== ENCOUNTER → 2022-08-22 | Outpatient (CLI) | payer OTHER ==
--- NOTE | 2022-08-23 10:12 | MR ---
EXAMINATION TYPE: MR angio head wo con DATE OF EXAM: 08/22/2022 3:31 PM CLINICAL INDICATION:Female, 62 years old with history of D68.51, G45.9 Right arm and facial numbness, left facial drooping. COMPARISON: MR brain 07/20/2022 Technical: 3-D [id number] Axial with MIP reconstruction created on a separate workstation.. IV Contrast: None Findings: Mild motion artifact limits evaluation. Vertebral arteries: The vertebral arteries are patent. Vertebral arteries are codominant. Basilar artery: The basilar artery is intact. The basilar artery bifurcation is normal. Internal Carotid arteries: The cervical, petrous, cavernous and supraclinoid segments are normal. RESHMA: Patent with no evidence of aneurysm. ACOM: Present without evidence of aneurysm. MCA: Patent with no evidence of aneurysm. [employer]: Patent with no evidence of aneurysm. PCOM: origins of the posterior cerebral arteries bilaterally. IMPRESSION: No evidence of aneurysm or significant stenosis.
== END | disposition home or self-care (01) ==
LOC: RADMRIMAIN 14:53
PROVIDERS: ATTEND Family Medicine
DX: D68.51 Activated protein C resistance (principal); G45.9 Transient cerebral ischemic attack, unspecified
CPT/HCPCS: 70544

== ENCOUNTER → 2022-09-21 | Outpatient (CLI) | payer OTHER | END | disposition home or self-care (01) | LOC: LABWHC1 14:54 | PROVIDERS: ATTEND Family Medicine | DX: Z53.9 Procedure and treatment not carried out, unspecified reason (principal) ==

== ENCOUNTER → 2022-10-14 | Outpatient (CLI) | payer OTHER | END | disposition home or self-care (01) | LOC: LABWHC1 13:34 | PROVIDERS: ATTEND Family Medicine | DX: M10.9 Gout, unspecified (principal) | CPT/HCPCS: 36415; 86235; 86431 ==

== ENCOUNTER 2022-11-16 11:05 | Day surgery (SDC) | payer OTHER ==
[~2022-11-16 11:05] MED LIST changes: -LIDOCAINE 1% (10MG/ML) FOR IV START INTRADERMA PRN
[2022-11-16] MEDS ORDERED: ONDANSETRON 4 MG/2 ML VIAL ONE (11:26)
[2022-11-16 11:39] VITALS: TEMP 98.4
[2022-11-16] MEDS ORDERED: DEXAMETHASONE SOD PHOSPHATE 4 MG/ML 1 ML VIAL IVP ONE (11:41)
[2022-11-16] MEDS ORDERED: ONDANSETRON 4 MG/2 ML VIAL IVP ONE (11:41)
[2022-11-16] MEDS ORDERED: SCOPOLAMINE 1 MG/72 HR PATCH TRANSDERM ONE (12:09)
[2022-11-16] MEDS ORDERED: LIDOCAINE 2% INJ 20 MG/ML (2 ML VIAL) ONE (12:13)
[2022-11-16] MEDS ORDERED: PROPOFOL 10 MG/ML 20 ML VIAL IV ONE (12:13)
--- NOTE | 2022-11-16 12:30 | P.OP ---
Date of Procedure: 11/16/22 Preoperative Diagnosis: GI bleed Postoperative Diagnosis: Antral gastritis Internal and external hemorrhoids Procedure(s) Performed: EGD Colonoscopy Anesthesia: MAC Surgeon: Pablo Rivera Pathology: other (Antral) Condition: stable Disposition: PACU Description of Procedure: The patient's placed on the endoscopy table in the lateral position. She received IV sedation. The gastro-/oropharynx passed in the esophagus and the stomach. Scope was then placed through the pylorus. The first and second portion of the duodenum appeared normal. The scope was then brought back the antrum and this appeared mildly inflamed. A biopsies was performed. Scope was then retroflexed and the remainder the stomach appeared normal. The GE junction was at 40 cm the distal esophagus appeared normal. The proximal esophagus appeared normal. Scope withdrawn for patient. Next digital rectal exam is performed. This revealed internal and external hemorrhoids. Flexible colonoscope was then placed patient anus and passed throughout the entire colon. The ileocecal valve was visualized. The cecum, ascending and transverse colon appeared normal. The descending and sigmoid colon appeared normal. Scope was brought back the rectum and this was normal. Scope withdrawn through the anus and internal and external hemorrhoids are noted. There is no evidence of any GI bleed. His presumed patient may have had bleeding from hemorrhoids.
[2022-11-16] MEDS ORDERED: droPERidol 5 MG/2 ML VIAL IVP ONE (12:50)
[2022-11-16 12:53] VITALS: RESP 20
[2022-11-16 13:13] VITALS: BP 108/78; PULSE 68
== END 2022-11-16 13:27 | disposition home or self-care (01) ==
LOC: ORWHC2ENDO 11:05
PROVIDERS: ATTEND Surgery
DX: K29.50 Unspecified chronic gastritis without bleeding (principal); K64.4 Residual hemorrhoidal skin tags; K64.8 Other hemorrhoids; I10 Essential (primary) hypertension; E78.5 Hyperlipidemia, unspecified; E03.9 Hypothyroidism, unspecified; M79.7 Fibromyalgia; K21.9 Gastro-esophageal reflux disease without esophagitis; Z86.711 Personal history of pulmonary embolism; Z86.718 Personal history of other venous thrombosis and embolism; Z79.01 Long term (current) use of anticoagulants; Z79.82 Long term (current) use of aspirin; Z79.890 Hormone replacement therapy; Z79.899 Other long term (current) drug therapy; Z91.040 Latex allergy status; Z88.8 Allergy status to other drugs, medicaments and biological substances; Z91.041 Radiographic dye allergy status
CPT/HCPCS: 45378; 43239; J1100; J2405; J2704; J1790; J2001; 88305

== ENCOUNTER → 2023-11-23 | Outpatient (CLI) | payer OTHER ==
[2023-11-23 21:11] LABS: C Reactive Protein <0.30 mg/dL (0.00-0.80)
== END | disposition home or self-care (01) ==
LOC: LABWHC1 14:42
PROVIDERS: ATTEND Family Medicine
DX: M25.50 Pain in unspecified joint (principal); M81.0 Age-related osteoporosis without current pathological fracture; D75.89 Other specified diseases of blood and blood-forming organs
CPT/HCPCS: 36415; 82306; 82607; 82746; 86140

== ENCOUNTER → 2024-03-21 | Outpatient (CLI) | payer OTHER ==
--- NOTE | 2024-03-26 16:32 | MM ---
Reason for Exam: Screening (asymptomatic). Last mammogram was performed 2 year(s) and 0 month(s) ago. Patient History: Menarche at age 10. First Full-Term at age 16. Right ovary removed at age 37. Hysterectomy at age 37. Postmenopausal. Hormonal Contraceptives for 15 years from age 17 until age 32. 2001, Reduction. Maternal cousin had breast cancer, age 38. Maternal aunt had breast cancer, age 48. Sister had ovarian cancer, age 38. Nephew/Niece had ovarian cancer, age 26. Sister had ovarian cancer, age 28. Risk Values: Lori 5 year model risk: 1.3%. NCI Lifetime model risk: 5.2%. Prior Study Comparison: 06/21/2017 Bilateral Diagnostic Mammogram, [facility]. 01/12/2019 Bilateral Diagnostic Mammogram, [facility]. 03/26/2022 Bilateral MG screening mammo w CAD, [facility]. Tissue Density: There are scattered areas of fibroglandular density. Findings: Analyzed By CAD. The pattern is symmetrical. No significant interval change No suspicious groups of microcalcifications, spiculated or lobular masses, architectural distortion or other secondary signs of malignancy are mammographically apparent. Overall Assessment: Negative, BI-RAD 1 Management: Screening Mammogram of both breasts in 1 year. A negative mammogram report should not preclude additional follow up of suspicious palpable abnormalities. Patient should continue monthly self breast exam. A clinical breast exam by your physician is recommended on an annual basis and results should be correlated with mammographic findings. Note on Lori scores and lifetime risk: 1. A Lori score greater than 3% is considered moderate risk. If this is the case, consider specialist referral to assess eligibility for a risk reducing agent. 2. If overall lifetime risk for the development of breast cancer is 20% or higher, the patient may qualify for future screening with alternating mammogram and breast MRI. [facility], , 03/26/2024 4:29 PM. Electronically signed and approved by: Mohamud Chakraborty D.O. Radiologis
== END | disposition home or self-care (01) ==
LOC: RADMAMWWP 07:52
PROVIDERS: ATTEND Family Medicine
DX: Z12.31 Encounter for screening mammogram for malignant neoplasm of breast (principal); R92.323 Mammographic fibroglandular density, bilateral breasts; Z78.0 Asymptomatic menopausal state; Z80.3 Family history of malignant neoplasm of breast
CPT/HCPCS: 77067

== ENCOUNTER → 2024-09-29 | Outpatient (CLI) | payer OTHER ==
[2024-09-30 02:54] LABS: ALT 14 U/L (8-44); AST 16 U/L (13-35); Albumin 4.2 g/dL (3.8-4.9); Albumin/Globulin Ratio 1.45 Ratio (1.60-3.17); Alkaline Phosphatase 49 U/L (41-126); Amylase 50 U/L (23-121); BUN/Creat Ratio 22.11 Ratio (12.00-20.00); Blood Urea Nitrogen 19.9 mg/dL (9.0-27.0); Carbon Dioxide 26.7 mmol/L (21.6-31.8); Chloride 102 mmol/L (96-109); Globulin 2.9 g/dL (1.6-3.3); Glucose 105 mg/dL (70-110); Lipase 45 U/L (14-63); Potassium 4.5 mmol/L (3.5-5.5); Sodium 138 mmol/L (135-145); Total Bilirubin 0.6 mg/dL (0.3-1.2); Total Protein 7.1 g/dL (6.2-8.2)
== END | disposition home or self-care (01) ==
LOC: LABWHC1 15:34
PROVIDERS: ATTEND Nurse Practitioner Family
DX: Z53.9 Procedure and treatment not carried out, unspecified reason (principal)
CPT/HCPCS: 36415; 80053; 82150; 83690